=== PATIENT | male | born 1940 | race Caucasian/White ===

== ENCOUNTER → 2018-10-21 13:28 | Outpatient (CLI) | payer MEDICARE, MEDICAID, SELFPAY ==
[2018-10-21 14:51] LABS: Cholesterol 190 mg/dL (140-199)
[2018-10-21 14:53] LABS: Hemoglobin A1C% w Est Avg Glu 5.2 % (4.0-6.0)
[2018-10-21 15:42] LABS: Vitamin B12 417 pg/mL (239-931)
[2018-10-24 19:44] LABS: Vitamin B1 97 nmol/L (78-185)
[2018-10-25 14:48] LABS: Methylmalonic Acid 259 nmol/L (87-318)
== END ==
PROVIDERS: PCP Internal Medicine; Visit Provider Psychiatry & Neurology Neurology
DX: I63.9 Cerebral infarction, unspecified (principal); G30.9 Alzheimer's disease, unspecified; F01.50 Vascular dementia, unspecified severity, without behavioral disturbance, psychotic disturbance, mood disturbance, and anxiety; F02.80 Dementia in other diseases classified elsewhere, unspecified severity, without behavioral disturbance, psychotic disturbance, mood disturbance, and anxiety
CPT/HCPCS: 36415; 82465; 82607; 83036; 83921; 84425

== ENCOUNTER 2019-02-14 20:32 | Observation (INO) | payer MEDICARE, MEDICAID, SELFPAY ==
--- NOTE | 2019-02-14 20:39 | ED_ITS ---
HPI - General Adult General Chief complaint: Neuro Symptoms/Deficit Stated complaint: STROKE Time Seen by Provider: 02/14/19 20:39 Source: patient and family Mode of arrival: ambulatory Limitations: no limitations History of Present Illness HPI narrative: Patient is a 78-year-old male. Arrived by private vehicle for evaluation after prior to arrival he states he was standing on his back porch where he suddenly became dizzy and then fell over. Patient was unable to describe this situation more than feeling dizzy and then falling over. He was able to stand afterwards with some assistance. He was complaining of some left hip pain. Approximately 30 minutes later he was sitting at the table eating when family states that he was slurring his words and had a drooping of the left side of his face. Family is unsure as to exactly how long this event took place. It appears the patient has had multiple TIAs in the past. Family states he has been evaluated by Neurology. He states he has not currently taking any medications. They state they do not remember neurology recommending that he be on any medications. By the time he arrived here in the emergency department his symptoms had resolved. The time my evaluation patient symptom-free of the than left hip pain. Related Data Home Medications Medication Instructions Recorded Confirmed gabapentin 600 mg PO BID 02/14/19 02/14/19 Allergies Allergy/AdvReac Type Severity Reaction Status Date / Time No Known Drug Allergies Allergy Verified 02/14/19 20:42 Review of Systems Constitutional Denies fatigue, Denies fever(s), Reports frequent falls and Denies headache(s) Eyes Denies change in vision, Denies diplopia and Denies loss of vision ENT Ears, Nose, Mouth, and Throat: Reports dizziness and Denies headache(s) Comments: Drooping left side of the face and slurring words Cardiovascular Denies chest pain, Denies palpitations and Denies dyspnea Respiratory Denies cough and Denies dyspnea Gastrointestinal Gastrointestinal: Denies abdominal pain, Denies nausea and Denies vomiting Genitourinary Denies dysuria Musculoskeletal Denies myalgias, Reports arthralgias (Left hip) and Denies tingling Integumentary/Breasts Denies rash Neurologic Denies behavioral changes, Denies confusion, Reports dizziness, Reports frequent falls, Denies headache(s), Denies focal weakness, Denies loss of vision, Denies radicular pain, Denies tingling and Denies paresthesias Psychiatric Denies behavioral changes and Denies confusion Endocrine Denies fatigue and Denies palpitations Hematologic/Lymphatic Denies easy bleeding and Denies easy bruising Allergic/Immunologic Denies urticaria [facility] Medical History Postherpetic neuralgia (Chronic) Malnutrition (Chronic 02/21/16) Social History household members: none Smoking Status: Current every day smoker alcohol intake: never Exam Initial Vital Signs Initial Vital Signs: Vital Signs Temperature 97.9 F 02/14/19 20:42 Pulse Rate 72 02/14/19 20:42 Respiratory Rate 19 02/14/19 20:42 Blood Pressure 161/90 H 02/14/19 20:42 Pulse Oximetry 97 02/14/19 20:42 Const General: cooperative, comfortable, well developed, well groomed and No acute distress Orientation: alert, awake and oriented x3 HENMT Head: normal to inspection, normocephalic and atraumatic Face and sinus: normal facial exam Mouth: oral mucosae normal Eyes Pupils: PERRL EOM: EOM intact bilaterally Neck Neck: normal visual inspection and no meningeal signs Resp Effort & Inspection: normal respiratory effort Auscultation: clear to auscultation bilaterally Cardio Rate: regular rate Rhythm: regular rhythm Pulses: radial pulses present GI Inspection: non-distended Palpation: soft Skin Lesions: no lesions Rashes: no rashes Neuro General: alert, awake and oriented x3 Cranial Nerves: CN's II-XI intact bilaterally Cognition: normal cognition Speech: speech normal Motor: muscle tone normal throughout Sensory Exam: no sensory deficits noted Extrem General: normal to inspection and capillary refill normal Other: Tender to palpation in the left hemipelvis however patient is able to flex and extend at the hip Psych Appearance: grossly normal and well kempt Scores GCS Yue coma scale eye opening: Spontaneous [place] coma scale verbal response: Orientated Yue coma scale motor response: Obey commands [place] coma scale total score: 15 NIH Stroke Scale Level of Conciousness: Alert, keenly responsive Ask month/age: Answers both questions correctly. Open/close eyes, close hand: Performs both tasks correctly Best gaze horizontal: Normal Visual [place]: No visual loss Facial palsy: Normal symetrical movement Left arm drift: No drift for full 10 sec Right arm drift: No drift for full 10 sec Left leg drift: No drift for full 10 sec Right leg drift: No drift for full 10 sec Limb ataxia: Absent Sensory on face/arms/legs: Normal, no sensory loss Best language: No aphasia, normal Dysarthria: Normal Extinction or inattention: No abnormality Total NIH Stroke scale score: 0 Course Orders Ordered: ED Orders 02/14/19 20:40 CT head/brain wo con Stat EKG-12 Lead Stat 02/14/19 20:45 Basic Metabolic Panel Stat Complete Blood Count AUTO DIFF Stat Ethanol (ETOH) Stat Partial Thromboplastin Time Stat Prothrombin Time INR Stat 02/14/19 21:10 XR hip w pel if done LT 2V Stat 02/14/19 23:37 Consult to Physician Routine 02/15/19 00:01 MRSA PCR Routine 02/15/19 06:00 EC echo doppler complete Stat MR stroke Stat Discontinued Medications Aspirin (Aspirin Chew) 324 mg PO NOW ONE Stop: 02/14/19 23:39 Last Admin: 02/14/19 23:58 Dose: 324 mg Vital Signs - 8 hr 02/14/19 20:42 02/14/19 21:33 02/14/19 22:36 Temperature 97.9 F Pulse Rate 72 68 62 Respiratory Rate 19 17 17 Blood Pressure 161/90 H Blood Pressure [Right Arm] 138/78 142/73 H Pulse Oximetry 97 95 94 02/15/19 00:17 Temperature 98.8 F Pulse Rate 74 Respiratory Rate 18 Blood Pressure 162/93 H Blood Pressure [Right Arm] Pulse Oximetry 97 Medical Decision Making Lab Data Lab results reviewed: Yes I reviewed the patient's lab results. Result diagrams: 02/14/19 20:45 02/14/19 20:45 Lab Results 02/14/19 02/14/19 02/14/19 Range/Units 20:45 20:45 20:45 WBC 5.1 (4.5-11.0) X10^3/uL RBC 4.65 (4.5-5.9) X10^6/uL Hgb 14.2 (13.5-17.5) g/dL Hct 41.8 (41-53) % MCV 89.8 (80-100) fL MCH 30.5 (26-34) PG MCHC 34.0 (30-36) % RDW 16.5 H (11.6-14.8) % Plt Count 288 (150-400) X10^3/uL Neut % (Auto) 52.1 (50-75) % Lymph % (Auto) 36.2 (25-40) % [place] % (Auto) 8.3 (3-14) % Eos % (Auto) 1.4 L (2-4) % Baso % (Auto) 2.0 (0-2) % Neut # (Auto) 2600 (3684-9948) /uL Lymph # (Auto) 1800 (4261-0491) /uL [place] # (Auto) 400 (0-900) /uL Eos # (Auto) 100 (0-450) /uL Baso # (Auto) 100 (0-100) /uL PT 9.8 L (10.1-12.7) SECONDS INR 0.9 (0.9-1.3) APTT 32 (26.4-36.2) SECONDS Sodium 137 (137-145) mmol/L Potassium 3.7 (3.4-5.1) mmol/L Chloride 99 (98-107) mmol/L Carbon Dioxide 32 (22-32) mmol/L BUN 13 (9-20) mg/dL Creatinine 1.00 (0.66-1.25) mg/dL Estimated GFR > 60.0 (>60) mL/min BUN/Creatinine Ratio 13.0 (6-22) Glucose 88 (80-110) mg/dL Calcium 9.3 (8.4-10.2) mg/dL Nasal Screen MRSA (PCR) (Negative) Ethyl Alcohol < 10 mg/dL 02/15/19 Range/Units 00:01 WBC (4.5-11.0) X10^3/uL RBC (4.5-5.9) X10^6/uL Hgb (13.5-17.5) g/dL Hct (41-53) % MCV (80-100) fL MCH (26-34) PG MCHC (30-36) % RDW (11.6-14.8) % Plt Count (150-400) X10^3/uL Neut % (Auto) (50-75) % Lymph % (Auto) (25-40) % [place] % (Auto) (3-14) % Eos % (Auto) (2-4) % Baso % (Auto) (0-2) % Neut # (Auto) (8844-1145) /uL Lymph # (Auto) (8569-1686) /uL [place]ergus # (Auto) (0-900) /uL Eos # (Auto) (0-450) /uL Baso # (Auto) (0-100) /uL PT (10.1-12.7) SECONDS INR (0.9-1.3) APTT (26.4-36.2) SECONDS Sodium (137-145) mmol/L Potassium (3.4-5.1) mmol/L Chloride (98-107) mmol/L Carbon Dioxide (22-32) mmol/L BUN (9-20) mg/dL Creatinine (0.66-1.25) mg/dL Estimated GFR (>60) mL/min BUN/Creatinine Ratio (6-22) Glucose (80-110) mg/dL Calcium (8.4-10.2) mg/dL Nasal Screen MRSA (PCR) Negative for mrsa (Negative) Ethyl Alcohol mg/dL Imaging Data CT scan - head: Radiologist's impression: [place] [address] CT Scan Report Signed Patient: Nicanor Mehta WMR#: [id number] : 1940Acct:[id number] Age/Sex: 78 / MDate of Service: 02/14/19 Loc: ED Accession Number: [id number] Procedure: CT head/brain wo con Ordering Provider: Jaspal Sprague D.O. PROCEDURE: CT HEAD/BRAIN WO CON INDICATIONS: Possible TIA TECHNIQUE: Noncontrast 4.5 mm thick angled axial sections acquired from the foramen magnum to the vertex, with coronal and sagittal reformats. For radiation dose reduction, the following was used: automated exposure control, adjustment of mA and/or kV according to patient size. COMPARISON: [facility], CT, HEAD WITHOUT CONTRAST, 11/30/2017, 12:41. FINDINGS: Image quality: Excellent. CSF spaces: Basal cisterns are patent. No extra-axial fluid collections. The ventricles are symmetric in size and shape. Brain: No intracranial bleeds or masses. There is cerebral volume loss for age, with resultant ventricular and sulcal prominence. There are marked periventricular and deep white matter chronic small vessel ischemic changes. Multiple bilateral old lacunar infarctions are identified. There also multiple tiny right cerebellar hemisphere infarcts. There is an old focal small left parieto-occipital infarct. There is intracranial internal carotid artery atherosclerosis. Skull and face: Calvarium and visualized facial bones appear intact, without suspicious lesions. Sinuses: Visualized sinuses and mastoids are clear. IMPRESSION: 1. Age-related volumes, marked small vessel ischemic change, stable bilateral lacunar infarctions, old left cortical infarct. 2. Negative for acute stroke, hemorrhage, or mass. Dictated by: Jose Trevino M.D. on 02/14/2019 at 21:59 Approved by: Jose Trevino M.D. on 02/14/2019 at 22:01 X-ray left hip: Attestation: I personally reviewed and interpreted this imaging study as follows: My impression: No fractures, no dislocations, no acute pathology ECG Data Attestation: I personally reviewed and interpreted this ECG as follows: Prior ECG tracings: not available for review Interpretation: Sinus rhythm Ventricular rate is 69 Normal axis Normal QRS Normal QTC No ST T wave changes MDM Narrative Medical decision making narrative: By the time patient arrived here in the emergency department all his symptoms had resolved. X-ray of his hip shows no fractures. CT scan of his head shows no acute pathology. Patient was given an aspirin here in the ER. Upon further review of the patient's last primary care doctor's note there was specific mention that the patient has not received a full workup for stroke/TIA. I did discuss the case with Dr. Obrien who was on- call for the patient's primary provider. Will admit for a TIA workup. The cardiac echo and MRI was ordered per their request and the results will be followed up by the inpatient provider. Discussed the admission with the patient and the family who expressed understanding and agreement. Care was turned over to admitting provider at time of admission. Discharge Plan Departure Patient Disposition: Admitted as Observation Clinical Impression: TIA (transient ischemic attack) Acute hip pain Qualifiers: Laterality: left Qualified Code(s): M25.552 - Pain in left hip Discharge Date/Time: 02/15/19 00:15 Interventions: ED Discharge Assessment Last Done: 02/15/19 00:00 Admit Date/Time: 02/14/19 23:39 Admit Provider: Grover Obrien
[2019-02-14 20:42] VITALS: BP 161/90; PULSE 72; RESP 19; TEMP 36.6; O2SAT 97
[2019-02-14 20:56] LABS: Add Manual Diff / Slide Review NO; Basophils Absolute Auto 100 /uL (0-100); Eosinophils Absolute Auto 100 /uL (0-450); Eosinophils Percent Auto 1.4 % (2-4); Hematocrit 41.8 % (41-53); Hemoglobin 14.2 g/dL (13.5-17.5); Lymphocytes Absolute Auto 1800 /uL (1100-4500); Lymphocytes Percent Auto 36.2 % (25-40); Mean Corpuscular Hemoglobin 30.5 PG (26-34); Mean Corpuscular Volume 89.8 fL (80-100); Monocytes Absolute Auto 400 /uL (0-900); Monocytes Percent Auto 8.3 % (3-14); Neutrophils Absolute Auto 2600 /uL (1500-7000); Neutrophils Percent Auto 52.1 % (50-75); Platelet Count 288 X10^3/uL (150-400); Red Blood Cell Count 4.65 X10^6/uL (4.5-5.9); Red Cell Distribution Width 16.5 % (11.6-14.8); White Blood Cell Count 5.1 X10^3/uL (4.5-11.0)
[2019-02-14 21:03] LABS: INR 0.9 (0.9-1.3); Prothrombin Time 9.8 SECONDS (10.1-12.7)
[2019-02-14 21:05] LABS: PTT Partial Thromboplastin Tim 32 SECONDS (26.4-36.2)
--- NOTE | 2019-02-14 21:10 | DI.RAD.S_ITS ---
PROCEDURE: XR HIP W PEL IF DONE LT 2V INDICATIONS: left hip pain after fall TECHNIQUE: 2 views of the hip were acquired. COMPARISON: None. FINDINGS: Bones: No displaced fractures or dislocations. No suspicious bony lesions. The visualized pelvic ring appears intact. There may be mild degenerative changes of the hips. Soft tissues: No suspicious soft tissue calcifications or masses. IMPRESSION: No acute osseous abnormality of the left hip. Note: The preliminary ED findings and the final radiology report are concordant. Dictated by: Gen Whiteside M.D. on 02/15/2019 at 6:40 Approved by: Gen Whiteside M.D. on 02/15/2019 at 6:41
[2019-02-14 21:16] LABS: Blood Urea Nitrogen 13 mg/dL (9-20); Calcium 9.3 mg/dL (8.4-10.2); Carbon Dioxide 32 mmol/L (22-32); Chloride 99 mmol/L (98-107); Estimated Glomerular Filt Rate > 60.0 mL/min (>60); Ethanol (ETOH) < 10 mg/dL; Glucose 88 mg/dL (80-110); HEMOLYSIS < 15 (0-50); Potassium 3.7 mmol/L (3.4-5.1); Sodium 137 mmol/L (137-145)
[2019-02-14 21:33] VITALS: BP 138/78; PULSE 68; RESP 17; O2SAT 95
[2019-02-14 22:36] VITALS: BP 142/73; PULSE 62; RESP 17; O2SAT 94
[2019-02-14 23:50] VITALS: BMI 15.0
[2019-02-14] MEDS: ASPIRIN 81 MG TAB 324 MG PO (23:58)
[2019-02-15 00:17] VITALS: BP 162/93; PULSE 74; RESP 18; TEMP 37.1; O2SAT 97
--- NOTE | 2019-02-15 00:34 | PC.ADMIT ---
[email or web address] Admission Note: The patient,Nicanor Mehta,78 y/o, was given written information regarding hospital policies, unit procedures and contact persons. Patient's smoking status: Current every day smoker. Vital Signs - 8 hr 02/14/19 20:42 02/14/19 21:33 02/14/19 22:36 Temperature 97.9 F Pulse Rate 72 68 62 Respiratory Rate 19 17 17 Blood Pressure 161/90 H Blood Pressure [Right Arm] 138/78 142/73 H Pulse Oximetry 97 95 94 02/15/19 00:17 Temperature 98.8 F Pulse Rate 74 Respiratory Rate 18 Blood Pressure 162/93 H Blood Pressure [Right Arm] Pulse Oximetry 97 Pt arrived to room 102 from ER via stretcher in NAD. VSS, afebrile. Pt able to slowly pivot transfer from stretcher to bed. C/O mild left hip pain with ambulation s/p GLF at home [employer]. Denies pain at rest in bed. NIH 0 - without changes. Pt is at baseline neuro per ER staff and family members. A/O, severely [place]. Pt denies hearing aide use. Oriented to plan of care, room and call light. Bed alarm verified active.
[2019-02-15 05:52] VITALS: BP 141/77; PULSE 77; RESP 19; TEMP 37.4
--- NOTE | 2019-02-15 06:00 | DI.ECHO.S_ITS ---
[facility] +---------+ Hospital +---------+ : : [address] : : : [place], [place] : : : : [id number] : : : : Phone: [phone] Echocardiogram Report + + :Name: GRACE ORTEGA Study Date: 02/15/2019 Height: 67 in : :[facility] Weight: 104 lb : : Gender: Male BSA: 1.5 m2 : :: 1940 Age: 78 yrs BP: 156/90 mmHg: :Reason For Study: tia : :Ordering Physician: Chaparro : :Hospitalist Performed By: Sher Nam : :Referring: LISET VIEIRA : + + Interpretation Summary Techincally challenging study as no parasternal and apical windows available. 1) Grossly, normal left ventricular size, wall motion, and systolic function (EF 60-65%). 2) Grossly, normal right ventricular size and functoin. 3 No significant valvular abnormalities. 4) No prior Echo available for comparison. Procedure: A two-dimensional transthoracic echocardiogram with color flow and Doppler was performed. The study quality was technically limited. Images were obtained from subcostal window. There were no parasternal or apical windows available. The patient was in normal sinus rhythm during the exam. Left Ventricle: The left ventricle is grossly normal size. There is normal left ventricular wall thickness. The ejection fraction is estimated to be 60- 65%. There are no obvious focal wall motion abnormalities noted but poor endocardial definition reduces the sensitivity for the detection of such. Right Ventricle: The right ventricle grossly appears normal in size with probable normal systolic function. Atria: The left atrium grossly appears normal in size. The right atrium grossly appears normal in size. Mitral Valve: The mitral valve leaflets appear mildly thickened, but open well. There is trace mitral regurgitation. Aortic Valve: The aortic valve is normal in structure and function. There is trace aortic regurgitation. Tricuspid Valve: The tricuspid valve is not well visualized, but is grossly normal. Doppler findings do not suggest pulmonary hypertension. Pulmonic Valve: The pulmonic valve leaflets are thin and pliable; valve motion is normal. There is a trace or physiologic amount of pulmonic regurgitation. Great Vessels: The aortic root is normal size. The ascending aorta could not be visualized. The pulmonary artery is normal size. The IVC is of normal diameter and collapses greater than 50% with a sniff. This suggests a low right atrial pressure of 3 mm Hg. Pericardium/ Pleura There is no pericardial effusion. There is no pleural effusion. Doppler Measurements & Calculations Ao V2 max: 89.7 cm/sec LVOT Max Wagner: 68.3 cm/sec Ao V2 mean: 55.6 cm/sec LV V1 max P.9 mmHg Ao max P.2 mmHg LV V1 VTI: 14.6 cm Ao mean P.4 mmHg sev ratio: 0.91 Ao V2 VTI: 16.0 cm MV E max wagner: 55.4 cm/sec TR max wagner: 185.4 cm/sec MV A max wagner: 56.4 cm/sec TR max P.7 mmHg MV E/A: 0.98 PA V2 max: 78.9 cm/sec Med Peak E' Wagner: 2.7 cm/sec PA V2 mean: 57.1 cm/sec E/E' med: 20.2 PA mean P.4 mmHg Lat Peak E' Wagner: 4.5 cm/sec PA pr(Accel): 41.6 mmHg E/E' lat: 12.2 E/e' average: 16.2 MV dec time: 0.19 sec Reading Physician:12:29 PM
--- NOTE | 2019-02-15 06:00 | DI.MRI.S_ITS ---
PROCEDURE: MR STROKE Pre- and post-contrast brain MRI, non-contrast brain MR angiogram, pre- and postcontrast neck MR angiogram INDICATIONS: TIA TECHNIQUE: Brain: Noncontrast axial T1 spin echo, axial T2 fast spin echo, sagittal and axial FLAIR, coronal T2 fast spin echo, axial gradient echo, axial diffusion and ADC through the brain. After the administration of contrast, axial 3D VIBE of the cranial vasculature and brain. Brain MRA: Non-contrast 3-D time of flight MR angiogram, with multiple xegrbra-kdcihllkh-xjlxxlmjpa (MIP) reformats performed. Neck MRA: Axial and sagittal TruFISP through the neck. Coronal dynamic MR angiogram during administration of contrast in the arterial and venous phases, with 3-dimenstional ljwecxc-tpqgvldzn-gybhcfibce (MIP) reformats constructed from subtraction images. COMPARISON: [facility], CT, CT HEAD/BRAIN WO CON, 02/14/2019, 21:35. FINDINGS: Image quality: Diagnostic BRAIN: CSF spaces: Ventricles are prominent in size with corresponding parenchymal volume loss. Basal cisterns are patent. No extra-axial fluid collections. Brain: No intracranial bleeds or mass effects. Fung-white matter interface is normal. Diffusion weighted images show no acute ischemic insults. Large confluent areas of increased flair signal are seen within the supratentorial brain deep white matter. There is an area of increased diffusion signal identified involving the deep white matter of the right frontal lobe (image 65, series 20), which demonstrates increased signal intensity on the ADC images. A similar foci of increased diffusion signal is noted involving the left cerebellum (image 56, series 20) with corresponding decreased signal intensity on the ADC images. Encephalomalacia involving the left occipital lobe is noted. Brainstem appears normal. Normal intravascular flow voids are present. No abnormal intracranial enhancement. Skull and face: Calvarial marrow signal is normal. Orbits appear normal. Sinuses: Sinuses and mastoids are clear. BRAIN MR ANGIOGRAM: Anterior circulation: Intracranial internal carotid arteries are normal in size and enhancement. The flow within the paired anterior cerebral arteries is normal and symmetric. The flow within the middle cerebral arteries is normal and symmetric. The anterior communicating artery is seen. No stenoses, occlusions, or aneurysms. Posterior circulation: The visualized portions of the vertebral arteries demonstrate normal caliber, and join to form a normal appearing basilar artery. The flow within the posterior cerebral arteries is normal and symmetric. No stenoses, occlusions, or aneurysms. NECK MR ANGIOGRAM: Carotids: Great vessels demonstrate a conventional anatomy as they arise from the aortic arch. The origins of the common carotid arteries appear patent. The calibers and courses of both common carotid arteries are normal. The bifurcation regions appear normal bilaterally. The internal carotid arteries demonstrate normal course and caliber. Posterior circulation: The origins of the vertebral arteries appear patent. More superior portions of both vertebral arteries demonstrate normal course and caliber, and join to form a normal appearing basilar artery. Miscellaneous: Subclavian arteries appear patent. Pre-contrast images through the neck show no soft tissue abnormalities. Mild to moderate degenerative changes of the lower cervical spine may be resulting in areas of central canal and neural foraminal narrowing, not adequately evaluated on this study. IMPRESSION: BRAIN MRI: 1. Small foci of acute ischemia involving the right frontal lobe deep white matter and left cerebellum. 2. Extensive chronic small vessel ischemic changes and parenchymal volume loss. 3. Left occipital lobe encephalomalacia. BRAIN MR ANGIOGRAM: The intracranial vessels are widely patent without high-grade narrowing, occlusion, aneurysm, or vascular malformation. NECK MR ANGIOGRAM: 1. Unremarkable cervical carotid arteries. No significant atherosclerotic changes. No aneurysm, occlusion, or high-grade narrowing. 2. Unremarkable vertebral arteries. No occlusions or high-grade narrowing. Dictated by: Gen Whiteside M.D. on 02/15/2019 at 10:34 Approved by: Gen Whiteside M.D. on 02/15/2019 at 10:43
[2019-02-15 08:00] VITALS: BP 156/90; PULSE 69; RESP 18; TEMP 37; O2SAT 94
--- NOTE | 2019-02-15 09:30 | PM.HP.1 ---
History of Present Illness Date Patient Seen: 02/15/19 Time Patient Seen: 09:30 Chief complaint: STROKE Narrative: TIA. Patient admitted last night through the emergency room for overnight observation for possible TIA. History primary from the emergency room doctor, ICU nursing staff, minimally from the patient. Reportedly patient had an event last evening standing on his deck became lightheaded and fell landing on his left hip banged his head got up went and sat in his easy chair. [place] much better. He does not recall any of this as far as I can tell other than he recalls falling. Reported later on family really felt he had slurring of his speech and drooping of the left side of his face. Because of these findings they brought him to the emergency room for evaluation. Apparently patient has history of prior events that have been called ?TIAs? also has had a significant deterioration of his memory. Has been seen by a neurologist who felt he had early-onset dementia multifactorial perhaps having had a stroke in the past based on abnormalities on MRI in the occiput. Last seen by Dr. Fisher in October comments made by Dr. Fisher as well as neurologist that patient seemed to be noncompliant with treatment for potential and that further workup may not be necessary. Patient is admitted here overnight to proceed with initial workup with echocardiogram and MRI MRA. Anticipating being discharged on aspirin later this evening. Patient currently lives in [place] with son. He is very upset with sudden his family 8 do not seem to pain any tension and apparently do not take him seriously. He is plan going home because he has a CT there that takes care of. Patient History Medical History Postherpetic neuralgia (Chronic) Malnutrition (Chronic 02/21/16) Social History household members: none Smoking Status: Current every day smoker alcohol intake: never Family & Social History Social History: household members none Prior Living Arrangements House Safety & Behavioral: Feels Safe in Current Yes Environment Been Physically Hurt or No Threatened By a Person Suicidal Ideation Description None Tobacco & Substance use: Tobacco type cigarettes Smoking Status Current every day smoker Smoking packs per day 1 alcohol intake never alcohol intake frequency other Substance Use Type does not use Meds Home Medications Medication Instructions Recorded Confirmed Type gabapentin 600 mg PO BID 02/14/19 02/14/19 History Allergies Allergy/AdvReac Type Severity Reaction Status Date / Time No Known Drug Allergies Allergy Verified 02/14/19 20:42 Review of Systems Review of Systems unobtainable due to mental status Exam Vital Signs (past 8 hours): - 02/15/19 05:52 02/15/19 08:00 Temperature 99.3 F 98.6 F Pulse Rate 77 69 Respiratory Rate 19 18 Blood Pressure 141/77 H 156/90 H Pulse Oximetry 94 Oxygen Delivery Method Room Air Oxygen Flow Rate 0 Narrative Exam Narrative: Patient is examined in his ICU room. He is sitting up in his chair getting prepared for shower. He answers questions but is incredibly hard of hearing takes fair amount of repeating at the questions for him to answer. He appears in no distress. Eye exam finds perhaps slight internal deviation of the left pupil but does have normal cranial nerve exam. Oropharynx shows [place] patient is a long jose and long hair. Lungs are entirely clear. Cardiac exam regular rhythm no murmur gallop Carotids 1+ no bruits Abdominal exam benign no hepatosplenomegaly no masses no tenderness. Genital rectal exam not performed. Extremities show him to very have thin cachectic legs with redness of the skin feet are warm. He has tenderness of the left hip area out laterally with a burst is. Hip otherwise has full range of motion His neurologic exam as stated cranial nerves 2-12 appear to be intact his finger-nose exam can be done but he does very poorly. Mental status exam a he is unaware today's date unaware that this is [facility]. 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 His neuro exam otherwise he seems to have symmetric strength of the upper lower extremities unclear about testing for sensation because of poor hearing the really does not understand the question Objective Labs Result Diagrams: 02/14/19 20:45 02/14/19 20:45 Labs: Laboratory Results - last 24 hr 02/14/19 02/14/19 02/14/19 20:45 20:45 20:45 WBC 5.1 RBC 4.65 Hgb 14.2 Hct 41.8 MCV 89.8 MCH 30.5 MCHC 34.0 RDW 16.5 H Plt Count 288 Neut % (Auto) 52.1 Lymph % (Auto) 36.2 [place] % (Auto) 8.3 Eos % (Auto) 1.4 L Baso % (Auto) 2.0 Neut # (Auto) 2600 Lymph # (Auto) 1800 [place] # (Auto) 400 Eos # (Auto) 100 Baso # (Auto) 100 PT 9.8 L INR 0.9 APTT 32 Sodium 137 Potassium 3.7 Chloride 99 Carbon Dioxide 32 BUN 13 Creatinine 1.00 Estimated GFR > 60.0 BUN/Creatinine Ratio 13.0 Glucose 88 Calcium 9.3 Nasal Screen MRSA (PCR) Ethyl Alcohol < 10 02/15/19 00:01 WBC RBC Hgb Hct MCV MCH MCHC RDW Plt Count Neut % (Auto) Lymph % (Auto) [place] % (Auto) Eos % (Auto) Baso % (Auto) Neut # (Auto) Lymph # (Auto) [place] # (Auto) Eos # (Auto) Baso # (Auto) PT INR APTT Sodium Potassium Chloride Carbon Dioxide BUN Creatinine Estimated GFR BUN/Creatinine Ratio Glucose Calcium Nasal Screen MRSA (PCR) Negative for mrsa Ethyl Alcohol labs reviewed from ER. CT of the head showed typical aging changes with no he hematoma or hemorrhage Assessment & Plan Assessment & Plan narrative: 1. Patient's primary problem appears to be his memory impairment this is chronic and is unclear whether not progressing or not. Memory impairment seem to be secondary to other issues are not to cerebrovascular disease although certainly is a consideration. 2. Reportedly the patient had an event yesterday that may well have been another 1 of his neurologic events. 3. No evidence for head injury. 4. Apparently compliance has been a major challenge in the past and will continue to be so I presume. 5. Nursing reports of foul-smelling urine urinalysis to be collected. Patient will have echocardiogram and MRI MRI today if possible and be discharged this evening on aspirin 325 once a day if possible. Patient is labeled as a full code but I do not know the details of whether not that is accurate or not Quality VTE Deep Vein Thrombosis/Pulmonary Embolism Present on Admission: No
--- NOTE | 2019-02-15 10:07 | PC.NURSE ---
Addendum entered by Jesus Ramey R.N. 02/15/19 11:29: Pt back to room about 1055. CGA back to bed from w/c and positioned for comfort. Notified education technician that pt is back to room. Original Note: Pt to MRI with tech via w/c in no acute distress.
[2019-02-15] MEDS: SODIUM CHLORIDE 0.9% 1,000 ML 100 ML IV (11:28)
[2019-02-15 11:38] VITALS: BP 163/85; PULSE 56; RESP 18; TEMP 36.7; O2SAT 99
[2019-02-15 11:58] LABS: Bacteria Urine None Seen
[2019-02-15 11:59] LABS: Appearance Urine UA CLEAR; Bilirubin Urine UA NEGATIVE (NEGATIVE); Color Urine UA YELLOW; Glucose Urine UA NEGATIVE (Negative); Ketones Urine UA NEGATIVE (NEGATIVE); Leukocyte Esterase Urine UA NEGATIVE (NEGATIVE); Nitrite Urine UA NEGATIVE (Negative); Occult Blood Urine UA TRACE-LYSED (Negative); Protein Urine UA NEGATIVE (Negative)
[2019-02-15 12:19] LABS: Culture Indicated Urine Cult Not Indicated; RBC Urine 1-5/HPF (0-5/HPF); WBC Urine 1-5/HPF (0-5/HPF)
--- NOTE | 2019-02-15 12:42 | OT.IP.EVAL ---
Past Medical History (Last Reviewed 02/15/19 @ 09:33 by Grover Obrien MD) Postherpetic neuralgia (Chronic) Malnutrition (Chronic 02/21/16) Occupational Therapy Inpatient Evaluation/Re-Eval M1 PT/OT-IP Prior Functional Status Start: 02/15/19 12:15 Freq: NEEDED Status: Active Protocol: Document 02/15/19 12:16 CGR (Rec: 02/15/19 12:41 CGR [id number]) Medical Review Prior Functional Status Communication Able to communicate with difficulty d/t [place]. R ear is better than L. Mobility and Gait Pt currently ambulating with CGA and no AD. Activities of Daily Living and IADL's Pt states he performed without assist at his baseline. Social History Household Members family Living Arrangements House Number of Floors (Floors) One Floor Number of Stairs To Enter/Railing? 5 with rail on R accending. Home Environment Standard Height Toilet Walk in Shower Employment Status Retired Additional Social History Comment Per pt, [place] Pt states he lives with his son in law and the son in law's girlfriend. States he daughter moved back east. M2 OT-IP Current Condition Start: 02/15/19 12:15 Freq: Status: Active Protocol: Document 02/15/19 12:16 CGR (Rec: 02/15/19 12:41 CGR [id number]) Occupational Therapy Current Condition Current Condition Evaluation Date 02/15/19 Treatment Diagnosis TIA M3 OT- IP Subjective and Pain Start: 02/15/19 12:15 Freq: Status: Active Protocol: Document 02/15/19 12:16 CGR (Rec: 02/15/19 12:41 CGR [id number]) OT- Subjective Occupational Therapy Visit Type Type Initial Evaluation Visit Start Time 11:01 Visit Stop Time 11:15 Total Visit Minutes 14 Notes Eval shortened d/t pollution control technician arrived during eval. Occupational Therapy Visit Comments Patient Comments Pt indicated that he knew this blog writer upon entering room. Its been a long times since I have seen you. OT Pain Assessment Pain When Pain Assessed At Rest Pain Present Pain Present Pain Reported Location Lower Back Intensity 8 Scale Used Numeric (1 - 10) Management Techniques Distraction Modification of Treatment M4 OT- IP ADL's Start: 02/15/19 12:15 Freq: Status: Active Protocol: Document 02/15/19 12:16 CGR (Rec: 02/15/19 12:41 CGR [id number]) OT [id number] Comments OT Self-Feeding Comments Not performed at Eval OT ADL-Grooming General Evaluation Grooming Ability Standby Assistance Areas Needing Assistance Face Washing OT ADL-Oral Care Comments Oral Care Comments Not performed d/t limited time OT ADL-Dressing Comments OT Dressing Comments Not performed d/t limited time OT ADL-Toileting Comments OT Toileting Comments Not performed d/t limited time OT ADL-Bathing Comments OT Bathing Comments Just performed with tech. Pt stood in shower with SBA and needed VC for thoroughness. Pt washed upper body and tech washed lower body and back. Pt declined to wash jose. All information obtained from tech . OT not present for shower. M5 OT- IP IADL's Start: 02/15/19 12:15 Freq: Status: Active Protocol: Document 02/15/19 12:16 CGR (Rec: 02/15/19 12:41 CGR [id number]) OT-Instrumental Activities of Daily Living Deficits IADL Deficits Identified Deficits Home Safety Awareness Awareness of Need for Assistance at Home Decreased Awareness Ability to Problem Solve Emergency Unable to Problem Solve Situations Medication Management Medication Management Comments Concern for pt to provide medication management for himself. Family not present to answer questions. Money Management Money Management Comments Concern for pt to provide money management for himself. FAmily not presetn to answer questions. Driving Driving Comments Pt states he does not drive. M6 OT- IP Functional Cognition Start: 02/15/19 12:15 Freq: Status: Active Protocol: Document 02/15/19 12:16 CGR (Rec: 02/15/19 12:41 CGR [id number]) Cognitive Factors Limiting Selfcare Function Cognitive Ability Level of Alertness Alert Patient Orientation Name Attention Span Ability Capable of Focused Attention Capable of Sustained Attention Ability to Follow Commands Able to Follow One Step Commands Able to Follow One Step Commands with Repetition Memory Description Immediate Impaired Short Term Impaired Geriatric Nurse Impaired Safety Awareness Underestimates Need for Assistance Problem Solving Ability Unable to Identify Errors Needs Assist to Identify Solutions Executive Function Ability Unable to Filter Distractions Unable to Organize Plans Unable to Remember Details Unable to Integrate Past Experience With Present Action Cognitive Comments Cognitive Assessment Comments Would benefit from formal testing. OT- Vision and Hearing OT- Hearing Assessment OT- Hearing Assessment Hearing Impaired OT- Vision Assessment Visual Acuity WFL Visual Attentiveness WFL Occular Pursuits WFL Visual Convergence WFL Vision Assessment Comments Pt states his vision is poor but is able to follow finger, read badge and identify objects at a distance. M7 OT- IP Mobility and Balance Start: 02/15/19 12:15 Freq: Status: Active Protocol: Document 02/15/19 12:16 CGR (Rec: 02/15/19 12:41 CGR [id number]) OT-Transfer Assessment Sit to and From Stand Sit to and from Stand Contact Guard Assistance Transfers Transfer Ability Contact Guard Assistance Technique Transfer Destination Bed OT- Gait Assessment Gait Gait Assistance Required: Contact Guard Assist Assistive Devices Assistive Device None Comments Gait Ability Comments Seen ambulating in [place] with director of nursing going to the shower. OT- Balance Assessment Sitting Balance and Reactions Static Sitting Balance Ability Normal Dynamic Sitting Balance Ability Normal Comments Other Balance Tests/Deviations/Treatment Seated EOB, no sitting balance : difficulty M8 OT- IP Objective Assessments Start: 02/15/19 12:15 Freq: Status: Active Protocol: Document 02/15/19 12:16 CGR (Rec: 02/15/19 12:41 CGR [id number]) OT Gross Range of Motion Upper Extremity Range of Motion Assessment Within Functional Limits OT Strength Upper Extremity Strength Assessment Within Functional Limits Comments Strength Comments grossly 5/5 throughout OT- Coordination Assessment Upper Extremity Finger to Nose Test Within Functional Limits Finger Tapping Test Within Functional Limits OT Sensation Assessment Comments Summary Comments Pt states BUE and neck tingly with touch. Edema Edema Absent M9 OT- IP Assessment and Plan Start: 02/15/19 12:15 Freq: Status: Active Protocol: Document 02/15/19 12:16 CGR (Rec: 02/15/19 12:41 CGR [id number]) OT Summary Assessment and Plan Potential Rehabilitation Potential Fair Analytic Complexity at Evaluation Moderate Summary OT Impairments Pain Balance Functional Cognition Functional Mobility Self-Feeding Grooming Dressing Toileting Bathing Toilet Transfers Shower Transfers Assessment Summary Pt presents with deficits to his cognition and mobility. Unable to assess full home situation as family is not present and pt was unable to state his location, date, year , president, etc. Pt is very [place] but answers questions when asked loudly to his R ear. Pt will benefit from continued OT services. At this time will recommend d/c to SNF as unsure of home situation and family's ability to assist pt upon discharge. Goals Self-Feeding Goal Independent Grooming Goal Independent Dressing Goal Independent Toileting Goal Independent Bathing Goal Independent Toilet Transfer Goal Independent Shower Transfer Goal Independent Days to Meet Goals 10 Frequency of Treatment Frequency Of Treatment Once a Day Treatment Plan OT Treatment Plan ADL Training Functional Cognition Training Functional Mobility Patient/Family Education Discharge Planning Other Treatment Recommendations and Next Pt would benefit from formal Treatment Focus cognition testing. Need baseline information from family for educated discharge plan. Discharge Recommendations OT Discharge Recommendations SNF Rehab Other Discharge Recommendations Recommending d/c to SNF at this time as family was not available to provide information on ability to assist pt at home. Unsure if current cog deficits are his baseline for new. Home Equipment Needs TBD
--- NOTE | 2019-02-15 12:45 | PT.IIE ---
Medical History (Last Reviewed 02/15/19 @ 09:33 by Grover Obrien MD) Postherpetic neuralgia (Chronic) Malnutrition (Chronic 02/21/16) Physical Therapy Inpatient Evaluation/Re-Eval M1 PT/OT-IP Prior Functional Status Start: 02/15/19 12:15 Freq: NEEDED Status: Active Protocol: Document 02/15/19 12:45 RCC (Rec: 02/15/19 13:41 [facility] [id number]) Medical Review Prior Functional Status Communication Able to communicate with difficulty d/t [place]. R ear is better than L. Mobility and Gait Pt currently ambulating with CGA and no AD. prior level of indep. gait without device on uneven terrain Activities of Daily Living and IADL's Pt states he performed without assist at his baseline. Social History Household Members family Living Arrangements House Number of Floors (Floors) One Floor Number of Stairs To Enter/Railing? 5 with rail on R ascending. Home Environment Standard Height Toilet Walk in Shower Employment Status Retired Additional Social History Comment Pt lives on [facility]. Son -in-law reports that pt has had multiple TIAs previously, pt fell to the ground and developed facial droop. Head CT and Hip radiograph initially were negative for acute findings. MRI of the brain showed Small foci of acute ischemia involving the right frontal lobe deep white matter and left cerebellum. Pt's son-in-law notes that pt walks outside without assistance, mowed the lawn about 2 weeks ago. M2 PT-IP Current Condition Start: 02/15/19 13:30 Freq: NEEDED Status: Active Protocol: Document 02/15/19 12:45 RCC (Rec: 02/15/19 13:41 [facility] [id number]) Physical Therapy Current Condition Current Condition Evaluation Date 02/15/19 Treatment Diagnosis CVA, impaired activity tolerance M3 PT-IP Subjective Start: 02/15/19 13:30 Freq: NEEDED Status: Active Protocol: Document 02/15/19 12:45 RCC (Rec: 02/15/19 13:41 [facility] [id number]) Subjective Physical Therapy Visit Type Type Initial Evaluation Visit Start Time 12:45 Visit Stop Time 13:20 Total Visit Minutes 35 Number of COMPARATOR OPERATOR Visits 0 Physical Therapy Visit Comments Patient Comments pt states that he wants to go home Patient Goals to go home M4 PT-IP Mobility and Gait Start: 02/15/19 13:30 Freq: NEEDED Status: Active Protocol: Document 02/15/19 12:45 RCC (Rec: 02/15/19 13:41 [facility] [id number]) PT-Bed Mobility Assessment Rolling Level of Assist Independent Supine to Sit Supine to Sit Independent Scooting Scooting to Edge of Bed Independent PT-Transfer Assessment Sit to and From Stand Sit to and from Stand Standby Assistance Equipment Transfer Assistive Device Gait Belt Transfers Transfer Destination Bed Chair Transfer Technique Stand Step Pivot Transfer Ability Level of Assist Standby Assistance Gait Assessment Gait Gait Assistance Required: Standby Assistance Distance (Feet) 60 Assistive Devices Assistive Device Gait Belt Gait Deviations General Gait Pattern Decreased Stride Length Decreased Feet Clearance Festinating Flexed Trunk Narrow Based Gait Step-to Gait Factors Limiting Gait Function Factors Limiting Gait Function Decreased Activity Tolerance Decreased Strength Difficulty Following Directions Poor Balance Poor Safety Awareness Comments Gait Comments pt ambulated 60 ft, c/o fatigue- HR and O2 saturation WNL during gait. Seated rest x3 min, then gait x30 ft back to room with CGA PT-Balance Assessment Sitting Balance and Reactions Static Sitting Balance Ability Good Dynamic Sitting Balance Ability Good Standing Balance and Reactions Static Standing Balance Ability Fair Dynamic Standing Balance Ability Poor Device Used none M5 PT-IP Objective Assessments Start: 02/15/19 13:30 Freq: NEEDED Status: Active Protocol: Document 02/15/19 12:45 RCC (Rec: 02/15/19 13:41 [facility] [id number]) Orientation Orientation/Cognition Orientation Name Place Situation Gross Range of Motion Lower Extremity ROM Assessment Within Functional Limits Strength Lower Extremity Strength Assessment Bilaterally Impaired Hip flexion 3+/5 B Knee flexion and extension 3+/5 B Ankle DF 5/5, PF 3/5 B Coordination Assessment Assessment Foot Tapping Test Normal Performance Sensation Assessment Sensation Gross Sensation WNL Muscle Tone Muscle Tone WNL Yes M6 PT-IP Treatment Start: 02/15/19 13:30 Freq: NEEDED Status: Active Protocol: Document 02/15/19 12:45 RCC (Rec: 02/15/19 13:41 [facility] [id number]) Physical Therapy Treatment Education Education Provided Safety M7 PT-IP Assessment and Plan Start: 02/15/19 13:30 Freq: NEEDED Status: Active Protocol: Document 02/15/19 12:45 RCC (Rec: 02/15/19 13:41 [facility] [id number]) PT Summary Assessment and Plan Potential Rehabilitation Potential Good Status of Condition at Evaluation Evolving Summary Impairments Strength Balance Transfers Gait Activity Tolerance Assessment Summary Pt able to ambulate 60 ft without an assistive device and CGA, but did require a seated rest break due to fatigue. Pt with shaking throughout session, with son- in-law reporting that this is new with this hospitalization. Pt overall is at high risk for falls, but son-in-law reports pt appears to be at his prior level of function, and they are able to provide assistance during the day as necessary. Pt with bilateral LE weakness, but no significant differences R vs L . Expect pt to be able to return home when medically cleared. Pt would be a strong candidate for physical and occupational therapy, but family unsure of how open to this the pt would be. Goals Bed Mobility Goal Independent Transfer Goal Independent Gait Goal Independent Gait Distance 150 Other Goals up/down 5 steps R ascending rail and CGA STG: up/down 3 steps with Min A and unilat. rail in 2 days STG: gait x100 ft with SBA in 2 days Days to Meet Goals 5 Frequency of Treatment Frequency Of Treatment Twice a Day Treatment Plan Physical Therapy Treatment Plan Bed Mobility Training Transfer Training Gait Training Therapeutic Exercise Balance Retraining Discharge Planning Neuromuscular Re-ed Other Recommendations and Next Treatment progress gait, stair training Focus Recommendations To Nursing Amount of Assist Needed 1 Person Assist Discharge Recommendations PT Discharge Recommendations Home with Assistance Home Health
--- NOTE | 2019-02-15 13:32 | CM.DANOTE ---
DCP/Assessment: Reviewed chart. Patient is a 78yr old male admitted under OBS status with stroke like symptoms. PCP is Dr. Fisher. Primary payor is 1)Medicare 2)Medicaid. Met with patient and DPOA/Cole and his spouse/Brenda at bedside explained CM/SW role. Cole reports that patient very [place]. Patient resides on [address] [facility] [address] with family. Cole reports that he is legal DPOA. Patient shakes his head in agreement when asked. Per Cole, patient lives with him and spouse/Brenda on [address] [facility] [address]. Prior to admit patient used no DME. Patient moves around I at residence but no longer drives. Patient is an active smoker. Cole reports that himself and spouse like to travel. They are concerned about leaving patient alone. Cole recently started to look into long-term options. Patient seen by therapy today. Per PT/Joseph patient gotten out of bed this afternoon. PT spoke with family and they concur that patient is primarily back to his mobility baseline. Cole provided with community resources for [employer] (including application). Cole reports that he will fill it out and turn in next week. In addition, Cole given private pay child care supervisor resources, community resource book, and checklist for applying for [employer]. Cole appreciative. Family reports that they will be with patient at home upon d/c. Spoke with RN/Jesus whom reports that patient might possibly d/c today. Family in agreement. No additional needs identified. Cole denies need for home health. P: Home when medically stable. Community resources provided. MARAH Brown Discharge Planning/Care Management CM Discharge Assessment Start: 02/15/19 12:45 Freq: Status: Active Protocol: Document 02/15/19 13:28 KJS (Rec: 02/15/19 13:32 JUAN [id number]) Discharge Planning Assessment Assigned [place] MARAH Brown Contact Information Cole Benjamin (JARED) Advance Directives? No History Provided By Patient Family Member Medical Record Has Patient been admitted in last 30 No days? Prior Living Arrangements House Household Members family Type of transporation used prior to Relies on Others admit Independent with ADL's Yes Is patient alert and oriented? Yes Caregiver for Another No Comment No DME used/needed at this time. Barriers to Discharge No Discharge Plan Home Transportation Arrangement Family to provide transport. Referrals Initiated Medicaid Application Other Additional Comment Resources for cargiving and [employer] application. Also given Senior Resource Guide. Whiteboard Updated in Patient Room with Yes name and ext. # of [place] Review Status In Process Next Review Type Continued Stay Review
--- NOTE | 2019-02-15 13:36 | PC.NURSE ---
Pt has remained awake, alert, and somewhat oriented. Mr. Mehta is severely [place] bilaterally and it is difficult at times to ascertain whether he hears/understands the questions that are being asked of him. He states his name, birthday, and acknowledges he's at the hospital (states location as [place]). He is unsure of date/time/season. He tells this RN he has had strokes in the past. He is moving all of his extremities with equal strength; however is weak requiring CGA for transfers and ambulation. He reports mild pain to his left hip which he states makes his left leg difficult to move. There is no drift to any of his extremities on assessment. He is following commands and denies visual changes. He is unsteady at times while walking but denies dizziness/lightheadedness. Mild HTN is noted and HR ranges 56-70s SB/SR with a 1st degree AVB. His lungs are CTAB and he is on RA with SPO2 98-100%. He denies shortness of breath. He is tolerating a general diet and swallowing without any apparent difficulty. MR and echo are completed. Family is at bedside and states pt is back to baseline regarding his mentation and walking ability, possibly a little weaker. They are interested in receiving information about home caregivers. PLACEMENT MANAGER at bedside discussing options.
--- NOTE | 2019-02-15 16:25 | PC.NURSE ---
1615- Patient discharged to home. Discharge instruction given to Cole patients guardian. Patient IV removed and patient assisted with dressing and transfer to wheelchair. Patient stable at the time of discharge to home.
--- NOTE | 2019-02-16 07:59 | P.DS_ITS ---
History of Present Illness Chief complaint: STROKE Narrative: TIA. Patient admitted last night through the emergency room for overnight observation for possible TIA. History primary from the emergency room doctor, ICU nursing staff, minimally from the patient. Reportedly patient had an event last evening standing on his deck became li ghtheaded and fell landing on his left hip banged his head got up went and sat in his easy chair. [place] much better. He does not recall any of this as far as I can tell other than he recalls falling. Reported later on family really felt he had slurring of his speech and drooping of the left side of his face. Because of these findings they brought him to the emergency room for evaluation. Apparently patient has history of prior events that have been called ?TIAs? also has had a significant deterioration of his memory. Has been seen by a neurologist who felt he had early-onset dementia multifactorial perhaps having had a stroke in the past based on abnormalities on MRI in the occiput. Last seen by Dr. Fisher in October comments made by Dr. Fisher as well as neurologist that patient seemed to be noncompliant with treatment for potential and that further workup may not be necessary. Patient is admitted here overnight to proceed with initial workup with echocardiogram and MRI MRA. Anticipating being discharged on aspirin later this evening. Patient currently lives in [place] with son. He is very upset with sudden his family 8 do not seem to pain any tension and apparently do not take him seriously. He is plan going home because he has a CT there that takes care of. Discharge Providers Date of admission: 02/14/19 23:39 Discharge Date: 02/15/19 Primary care physician: David Fisher MD Consults: 02/14/19 23:37 Consult to Physician Routine Comment: Consulting Provider: Grover Obrien Reason for consultation: admission Has provider been notified: Yes 02/15/19 09:49 Consult to Physical Therapy Evaluate & Treat Comment: Physician Instructions: Evaluate and Treat Discharge provider: Grover Obrien MD Summary Discharge Diagnosis: 1. TIA. 2. Questionable new evidence of ischemia right frontal lobe as per MRI. 3. Significant pre-existing memory impairment. 4. Normal echocardiogram Exam Vital Signs (past 8 hours): Oxygen Delivery Method Room Air Oxygen Flow Rate 0 Narrative Exam Narrative: Patient exam was unchanged. His typical disheveled [place] self. His neuro exam was unchanged and was unremarkable and normal Objective Labs Result Diagrams: 02/14/19 20:45 02/14/19 20:45 Labs: Laboratory Results - last 24 hr 02/15/19 11:30 Urine Color Yellow Urine Appearance Clear Urine pH 7.0 Ur Specific [place] 1.020 Urine Protein Negative Urine Glucose (UA) Negative Urine Ketones Negative Urine Occult Blood Trace-lysed Urine Nitrate Negative Urine Bilirubin Negative Urine Urobilinogen 1.0 Ur Leukocyte Esterase Negative Urine RBC 1-5/hpf Urine WBC 1-5/hpf Urine Bacteria None seen Ur Culture Indicated? Cult not indicated Discharge Plan Discharge Plan Patient Disposition: Home Discharge Med Rec/Prescriptions Prescriptions: Discontinued gabapentin 300 mg Capsule 600 mg PO BID RF: 0 Follow up/Referrals: David Fisher MD [Primary Care Provider] - Provider Discharge Instructions Diet: Diet as Tolerated Visit Report/Discharge Packet Visit Report Forms: Stroke Signs & Symptoms Discharge Data Primary Care Provider: David Fisher Attending Provider: David Fisher Admit Date/Time: 02/14/19 23:39 Discharges patient from system. Discharge Date/Time: 02/15/19 16:26 Quality VTE Deep Vein Thrombosis/Pulmonary Embolism Present on Admission: No
--- NOTE | 2019-02-19 09:28 | PC.NURSE ---
Stop time for Sodium Chloride 0.9% 02/15/19 [id number]
== END 2019-02-15 16:26 | disposition home or self-care (01) ==
LOC: ED 23:35 → AC 23:42 → ICU 02-15 09:39
PROVIDERS: Admitting Provider Family Medicine; Emergency Provider Emergency Medicine; Family Provider Internal Medicine; PCP Internal Medicine; Visit Provider Internal Medicine
DX: G45.9 Transient cerebral ischemic attack, unspecified (principal); R29.818 Other symptoms and signs involving the nervous system; F17.210 Nicotine dependence, cigarettes, uncomplicated; R41.3 Other amnesia
CPT/HCPCS: 36591; 70450; 70548; 70553; 73502; 80048; 80320; 81001; 85025; 85610; 85730; 87797; 93005; 93306; 96360; 96361; 97162; 97166; 99283; 99285; G0378

== ENCOUNTER 2020-01-20 18:00 | Inpatient (IN) | payer MEDICARE, MEDICAID, SELFPAY ==
--- NOTE | 2020-01-20 18:07 | DI.CT.S_ITS ---
PROCEDURE: CT HEAD/BRAIN WO CON INDICATIONS: unresponsive episode, fall, history of stroke TECHNIQUE: Noncontrast 4.5 mm thick angled axial sections acquired from the foramen magnum to the vertex, with coronal and sagittal reformats. For radiation dose reduction, the following was used: automated exposure control, adjustment of mA and/or kV according to patient size. COMPARISON: [facility], CT, HEAD WITHOUT CONTRAST, 11/30/2017, 12:41. [facility], MR, MR STROKE, 02/15/2019, 10:12. [facility], CT, CT HEAD/BRAIN WO CON, 02/14/2019, 21:35. FINDINGS: Image quality: Excellent. CSF spaces: Basal cisterns are patent. No extra-axial fluid collections. The ventricles are symmetric in size and shape. Brain: No intracranial bleeds or masses. There is cerebral volume loss for age, with resultant ventricular and sulcal prominence. There are periventricular and deep white matter chronic small vessel ischemic changes. Remote lacunar infarctions are seen, including a relatively prominent focal infarction involving the right thalamus. A focal remote left occipital infarction is again seen. There is intracranial internal carotid artery atherosclerosis. Skull and face: Calvarium and visualized facial bones appear intact, without suspicious lesions. There is a right lens replacement seen. Sinuses: Visualized sinuses and mastoids are clear. IMPRESSION: No acute intracranial hemorrhage is seen. No acute intracranial process is seen. Note is made of age-appropriate brain parenchymal volume loss and chronic small vessel ischemic changes. Focal lacunar infarctions are again noted. A remote left occipital infarction can be seen. If there is strong clinical suspicion for an acute stroke, please consider an MRI for further evaluation, as it is more sensitive (assuming that there is no contraindication to MRI). Dictated by: Morgan Casillas M.D. on 01/20/2020 at 17:37 Approved by: Morgan Casillas M.D. on 01/20/2020 at 17:39
[2020-01-20 18:13] VITALS: BP 150/71; PULSE 76; RESP 19; TEMP 35.7; O2SAT 96
--- NOTE | 2020-01-20 18:21 | ED.SYNCOPE ---
HPI - Syncope General Chief Complaint: Syncope Stated Complaint: Syncope Time Seen by Provider: 01/20/20 18:01 Source: EMS Mode of arrival: EMS Limitations: altered mental status History of Present Illness HPI narrative: 79-year-old male smoker with history of stroke and hypertension presents by EMS after he had what sounds like a syncopal episode with a likely prolonged down time. Patient was brought in by EMS and was found to be unresponsive on their arrival. He slowly came to his current level of mentation at baseline. He is very confused about his recent history, he denies any recent illness such as nausea, vomiting or diarrhea. He has had no fever, chills or difficulty breathing. He denies any urinary complaints. Though there were bystanders they were very poor historians and had little to contribute. He denies any alcohol or street drugs. His blood glucose was in the 200s by EMS MD complaint: loss of consciousness and felt faint Description of event: post-event confusion Prodromal symptoms: none Witnessed: yes - by bystander Injuries sustained associated with event: none Current symptoms: weakness Treatments prior to arrival: none Related Data Home Medications Medication Instructions Recorded Confirmed aspirin 325 mg tablet 325 mg PO DAILY 02/27/19 Allergies Allergy/AdvReac Type Severity Reaction Status Date / Time No Known Drug Allergies Allergy Verified 02/27/19 15:54 Review of Systems Review of Systems ROS Unobtainable: All systems reviewed & are unremarkable except as noted in HPI and below Constitutional Constitutional: Denies chills, Denies fatigue, Denies fever(s), Denies frequent falls, Denies lethargy and Denies weakness Eyes Eyes: Denies change in vision, Denies eye discharge, Denies irritation and Denies loss of vision ENT Ears, Nose, Mouth, and Throat: Denies change in voice, Denies dizziness, Denies neck pain, Denies sore throat and Denies throat swelling Cardiovascular Cardiovascular: Denies chest pain, Denies irregular heart rhythm, Denies lightheadedness, Denies palpitations, Denies dyspnea, Denies dyspnea on exertion and Denies orthopnea Respiratory Respiratory: Denies cough, Denies dyspnea, Denies dyspnea on exertion and Denies wheezing Gastrointestinal Gastrointestinal: Denies abdominal pain, Denies change in bowel habits, Denies diarrhea, Denies nausea and Denies vomiting Genitourinary Genitourinary: Denies hematuria, Denies flank pain, Denies urinary incontinence and Denies urinary urgency Musculoskeletal Musculoskeletal: Denies back pain, Denies muscle weakness, Denies neck pain, Denies numbness and Denies tingling Integumentary/Breasts Skin/Breast: Denies pruritus, Denies erythema, Denies rash and Denies wounds Neurologic Neurologic: Denies behavioral changes, Denies confusion, Denies dizziness, Denies frequent falls, Denies loss of vision, Denies numbness, Denies tingling and Denies weakness Psychiatric Psychiatric: Denies anxiety, Denies behavioral changes, Denies confusion, Denies depression, Denies homicidal ideation and Denies suicidal ideation Endocrine Endocrine: Denies fatigue, Denies flushing and Denies palpitations Hematologic/Lymphatic Hematologic/Lymphatic: Denies easy bruising Allergic/Immunologic Allergic/Immunologic: Denies urticaria, Denies throat swelling and Denies wheezing Patient History Medical History (Updated 01/20/20 @ 20:02 by Tucker Girard DO) Malnutrition (Chronic 02/21/16) Personal history of stroke with current residual effects (Chronic ~01/2019) Postherpetic neuralgia (Chronic) Social History household members: family Smoking Status: Current every day smoker alcohol intake: never Smoking Status: Current every day smoker alcohol intake frequency: other Substance Use Type: does not use Exam Narrative Exam Narrative: GENERAL: [79] year old patient appears stated age. Very thin with temporal wasting, very hard of hearing and confused HEAD: Atraumatic. Normocephalic. EYES: Pupils equal round and reactive. Extraocular motions intact. No scleral icterus. No injection or drainage. ENT: Dry mucous membranes Nose without bleeding, purulent drainage. Throat without erythema, tonsillar hypertrophy or exudate. Airway patent. NECK: Trachea midline. Non tender CARDIOVASCULAR: Regular rate and rhythm without murmurs, gallops, or rubs. RESPIRATORY: Clear to auscultation. Breath sounds equal bilaterally. No wheezes, rales, or rhonchi. GASTROINTESTINAL: Abdomen soft, non-tender, nondistended. EXTREMITIES: No edema or joint tenderness. BACK: Nontender without deformity or crepitance. No flank tenderness. NEURO: Awake. Unaware of location or date. SKIN: Poor skin turgor No rash or erythema of visible areas Initial Vital Signs Initial Vital Signs: Vital Signs Temperature 96.3 F L 01/20/20 18:13 Pulse Rate 76 01/20/20 18:13 Respiratory Rate 19 01/20/20 18:13 Blood Pressure 150/71 H 01/20/20 18:13 Pulse Oximetry 96 01/20/20 18:13 Course Course Course Narrative: patient is very poor historian, and though he is asked about it and denies any diarrhea, he has now had 5 loose stools here in the department. He denies antibiotics, travel or bad food Orders Ordered: ED Orders 01/20/20 18:07 CT head/brain wo con Stat EKG-12 Lead Stat 01/20/20 18:16 C-Reactive Protein Quant Stat Complete Blood Count AUTO DIFF Stat Comprehensive Metabolic Panel Stat Ethanol (ETOH) Stat Ferritin Stat Lactate (Lactic Acid) Stat Magnesium Stat NT-proBNP (BNP-Adult 18+) Stat Partial Thromboplastin Time Stat Procalcitonin Stat Prolactin Stat Prothrombin Time INR Stat Troponin & CK Cardiac Panel Stat 01/20/20 19:52 XR chest 1V Stat 01/20/20 20:18 GI Panel (Film Array) Stat Urine Drug Screen, Rapid Stat Discontinued Medications Sodium Chloride (Normal Saline 0.9%) 1,000 mls @ 1,000 mls/hr IV BOLUS ONE Stop: 01/20/20 20:08 Last Admin: 01/20/20 20:26 Dose: 1,000 mls/hr Documented by: TETE Vital Signs Vital signs: Vital Signs - 8 hr 01/20/20 18:13 01/20/20 19:00 Temperature 96.3 F L Pulse Rate 76 80 Respiratory Rate 19 19 Blood Pressure 150/71 H Blood Pressure [Left Arm] 151/71 H Pulse Oximetry 96 99 MDM - Syncope Lab Data Result diagrams: 01/20/20 18:16 01/20/20 18:16 Labs: Lab Results 01/20/20 01/20/20 01/20/20 Range/Units 18:16 18:16 18:16 WBC 5.1 (4.5-11.0) X10^3/uL RBC 4.73 (4.5-5.9) X10^6/uL Hgb 14.2 (13.5-17.5) g/dL Hct 42.6 (41-53) % MCV 90.2 (80-100) fL MCH 30.0 (26-34) PG MCHC 33.3 (30-36) % RDW 14.6 (11.6-14.8) % Plt Count 301 (150-400) X10^3/uL Neut % (Auto) 59.6 (50-75) % Lymph % (Auto) 32.8 (25-40) % [place] % (Auto) 6.8 (3-14) % Eos % (Auto) 0.2 L (2-4) % Baso % (Auto) 0.6 (0-2) % Neut # (Auto) 3100 (8970-5227) /uL Lymph # (Auto) 1700 (8762-1699) /uL [place] # (Auto) 300 (0-900) /uL Eos # (Auto) 0 (0-450) /uL Baso # (Auto) 0 (0-100) /uL PT 10.6 (10.1-12.7) SECONDS INR 0.9 (0.9-1.3) APTT 29 D (26.4-36.2) SECONDS Sodium 135 L (137-145) mmol/L Potassium 3.9 (3.4-5.1) mmol/L Chloride 96 L (98-107) mmol/L Carbon Dioxide 24 (22-32) mmol/L BUN 24 H (9-20) mg/dL Creatinine 1.47 H (0.66-1.25) mg/dL Estimated GFR 46.2 L (>60) mL/min BUN/Creatinine Ratio 16.3 (6-22) Glucose 208 H (80-110) mg/dL Lactate (0.7-2.1) mmol/L Calcium 9.6 (8.4-10.2) mg/dL Magnesium 2.0 (1.6-2.3) mg/dL Ferritin 104 (18-464) ng/mL Total Bilirubin 0.6 (0.2-1.3) mg/dL AST 24 (17-59) IU/L ALT 12 (<50) IU/L Alkaline Phosphatase 81 (38-126) U/L Total Creatine Kinase (55-170) U/L CK-MB (CK-2) CK-MB (CK-2) Rel Index Troponin I (0.01-0.034) ng/mL C-Reactive Protein 4.5 H (<1.0) mg/dL NT-Pro-B Natriuret Pep 239 (<450) pg/mL Total Protein 8.1 (6.3-8.2) g/dL Albumin 4.2 (3.5-5.0) g/dL Globulin 3.9 (1.7-4.1) g/dL Albumin/Globulin Ratio 1.1 (1.0-2.8) Procalcitonin (<0.5) ng/mL Prolactin 34.7 H (3.7-17.9) ng/mL Urine Color Urine Appearance Urine pH (4.5-8.0) Ur Specific [place] (1.000-1.035) Urine Protein (Negative) Urine Glucose (UA) (Negative) g/dL Urine Ketones (NEGATIVE) Urine Occult Blood (Negative) Urine Nitrate (Negative) Urine Bilirubin (NEGATIVE) Urine Urobilinogen (0.2) E.U./dL Ur Leukocyte Esterase (NEGATIVE) Urine RBC (0-5/HPF) Urine WBC (0-5/HPF) Ur Squamous Epith Cells (0-5/HPF) Amorphous Sediment Urine Bacteria (None) Ur Culture Indicated? U Opiates 300ng/mL cut (Negative) Ur Oxycodone Screen (Negative) Urine Methadone Screen (Negative) Ur Barbiturates Screen (Negative) U Tricyclic Antidepress (Negative) Ur Phencyclidine Scrn (Negative) Ur Amphetamines Screen (Negative) U Methamphetamines Scrn (Negative) Ur MDMA Scrn (Ecstasy) (Negative) U Benzodiazepines Scrn (Negative) Urine Cocaine Screen (Negative) U Marijuana (THC) Screen (Negative) Ethyl Alcohol ( - 10) mg/dL COVID-19 PCR 01/20/20 01/20/20 01/20/20 Range/Units 18:16 18:16 18:16 WBC (4.5-11.0) X10^3/uL RBC (4.5-5.9) X10^6/uL Hgb (13.5-17.5) g/dL Hct (41-53) % MCV (80-100) fL MCH (26-34) PG MCHC (30-36) % RDW (11.6-14.8) % Plt Count (150-400) X10^3/uL Neut % (Auto) (50-75) % Lymph % (Auto) (25-40) % [place] % (Auto) (3-14) % Eos % (Auto) (2-4) % Baso % (Auto) (0-2) % Neut # (Auto) (4499-2098) /uL Lymph # (Auto) (7367-3136) /uL [place] # (Auto) (0-900) /uL Eos # (Auto) (0-450) /uL Baso # (Auto) (0-100) /uL PT (10.1-12.7) SECONDS INR (0.9-1.3) APTT (26.4-36.2) SECONDS Sodium (137-145) mmol/L Potassium (3.4-5.1) mmol/L Chloride (98-107) mmol/L Carbon Dioxide (22-32) mmol/L BUN (9-20) mg/dL Creatinine (0.66-1.25) mg/dL Estimated GFR (>60) mL/min BUN/Creatinine Ratio (6-22) Glucose (80-110) mg/dL Lactate 3.2 H (0.7-2.1) mmol/L Calcium (8.4-10.2) mg/dL Magnesium (1.6-2.3) mg/dL Ferritin (18-464) ng/mL Total Bilirubin (0.2-1.3) mg/dL AST (17-59) IU/L ALT (<50) IU/L Alkaline Phosphatase (38-126) U/L Total Creatine Kinase 54 L (55-170) U/L CK-MB (CK-2) TNP CK-MB (CK-2) Rel Index TNP Troponin I < 0.012 (0.01-0.034) ng/mL C-Reactive Protein (<1.0) mg/dL NT-Pro-B Natriuret Pep (<450) pg/mL Total Protein (6.3-8.2) g/dL Albumin (3.5-5.0) g/dL Globulin (1.7-4.1) g/dL Albumin/Globulin Ratio (1.0-2.8) Procalcitonin < 0.05 (<0.5) ng/mL Prolactin (3.7-17.9) ng/mL Urine Color Urine Appearance Urine pH (4.5-8.0) Ur Specific [place] (1.000-1.035) Urine Protein (Negative) Urine Glucose (UA) (Negative) g/dL Urine Ketones (NEGATIVE) Urine Occult Blood (Negative) Urine Nitrate (Negative) Urine Bilirubin (NEGATIVE) Urine Urobilinogen (0.2) E.U./dL Ur Leukocyte Esterase (NEGATIVE) Urine RBC (0-5/HPF) Urine WBC (0-5/HPF) Ur Squamous Epith Cells (0-5/HPF) Amorphous Sediment Urine Bacteria (None) Ur Culture Indicated? U Opiates 300ng/mL cut (Negative) Ur Oxycodone Screen (Negative) Urine Methadone Screen (Negative) Ur Barbiturates Screen (Negative) U Tricyclic Antidepress (Negative) Ur Phencyclidine Scrn (Negative) Ur Amphetamines Screen (Negative) U Methamphetamines Scrn (Negative) Ur MDMA Scrn (Ecstasy) (Negative) U Benzodiazepines Scrn (Negative) Urine Cocaine Screen (Negative) U Marijuana (THC) Screen (Negative) Ethyl Alcohol ( - 10) mg/dL COVID-19 PCR 01/20/20 01/20/20 01/20/20 Range/Units 18:16 20:18 20:18 WBC (4.5-11.0) X10^3/uL RBC (4.5-5.9) X10^6/uL Hgb (13.5-17.5) g/dL Hct (41-53) % MCV (80-100) fL MCH (26-34) PG MCHC (30-36) % RDW (11.6-14.8) % Plt Count (150-400) X10^3/uL Neut % (Auto) (50-75) % Lymph % (Auto) (25-40) % [place] % (Auto) (3-14) % Eos % (Auto) (2-4) % Baso % (Auto) (0-2) % Neut # (Auto) (6465-3042) /uL Lymph # (Auto) (1265-4170) /uL [place] # (Auto) (0-900) /uL Eos # (Auto) (0-450) /uL Baso # (Auto) (0-100) /uL PT (10.1-12.7) SECONDS INR (0.9-1.3) APTT (26.4-36.2) SECONDS Sodium (137-145) mmol/L Potassium (3.4-5.1) mmol/L Chloride (98-107) mmol/L Carbon Dioxide (22-32) mmol/L BUN (9-20) mg/dL Creatinine (0.66-1.25) mg/dL Estimated GFR (>60) mL/min BUN/Creatinine Ratio (6-22) Glucose (80-110) mg/dL Lactate (0.7-2.1) mmol/L Calcium (8.4-10.2) mg/dL Magnesium (1.6-2.3) mg/dL Ferritin (18-464) ng/mL Total Bilirubin (0.2-1.3) mg/dL AST (17-59) IU/L ALT (<50) IU/L Alkaline Phosphatase (38-126) U/L Total Creatine Kinase (55-170) U/L CK-MB (CK-2) CK-MB (CK-2) Rel Index Troponin I (0.01-0.034) ng/mL C-Reactive Protein (<1.0) mg/dL NT-Pro-B Natriuret Pep (<450) pg/mL Total Protein (6.3-8.2) g/dL Albumin (3.5-5.0) g/dL Globulin (1.7-4.1) g/dL Albumin/Globulin Ratio (1.0-2.8) Procalcitonin (<0.5) ng/mL Prolactin (3.7-17.9) ng/mL Urine Color Urine Appearance Urine pH (4.5-8.0) Ur Specific [place] (1.000-1.035) Urine Protein (Negative) Urine Glucose (UA) (Negative) g/dL Urine Ketones (NEGATIVE) Urine Occult Blood (Negative) Urine Nitrate (Negative) Urine Bilirubin (NEGATIVE) Urine Urobilinogen (0.2) E.U./dL Ur Leukocyte Esterase (NEGATIVE) Urine RBC (0-5/HPF) Urine WBC (0-5/HPF) Ur Squamous Epith Cells (0-5/HPF) Amorphous Sediment Urine Bacteria (None) Ur Culture Indicated? U Opiates 300ng/mL cut Negative (Negative) Ur Oxycodone Screen Negative (Negative) Urine Methadone Screen Negative (Negative) Ur Barbiturates Screen Negative (Negative) U Tricyclic Antidepress Negative (Negative) Ur Phencyclidine Scrn Negative (Negative) Ur Amphetamines Screen Negative (Negative) U Methamphetamines Scrn Negative (Negative) Ur MDMA Scrn (Ecstasy) Negative (Negative) U Benzodiazepines Scrn Negative (Negative) Urine Cocaine Screen Negative (Negative) U Marijuana (THC) Screen Negative (Negative) Ethyl Alcohol < 10 ( - 10) mg/dL COVID-19 PCR Cancelled 01/20/20 01/20/20 Range/Units 20:18 20:39 WBC (4.5-11.0) X10^3/uL RBC (4.5-5.9) X10^6/uL Hgb (13.5-17.5) g/dL Hct (41-53) % MCV (80-100) fL MCH (26-34) PG MCHC (30-36) % RDW (11.6-14.8) % Plt Count (150-400) X10^3/uL Neut % (Auto) (50-75) % Lymph % (Auto) (25-40) % [place] % (Auto) (3-14) % Eos % (Auto) (2-4) % Baso % (Auto) (0-2) % Neut # (Auto) (2574-5804) /uL Lymph # (Auto) (8974-7580) /uL [place] # (Auto) (0-900) /uL Eos # (Auto) (0-450) /uL Baso # (Auto) (0-100) /uL PT (10.1-12.7) SECONDS INR (0.9-1.3) APTT (26.4-36.2) SECONDS Sodium (137-145) mmol/L Potassium (3.4-5.1) mmol/L Chloride (98-107) mmol/L Carbon Dioxide (22-32) mmol/L BUN (9-20) mg/dL Creatinine (0.66-1.25) mg/dL Estimated GFR (>60) mL/min BUN/Creatinine Ratio (6-22) Glucose (80-110) mg/dL Lactate 1.7 (0.7-2.1) mmol/L Calcium (8.4-10.2) mg/dL Magnesium (1.6-2.3) mg/dL Ferritin (18-464) ng/mL Total Bilirubin (0.2-1.3) mg/dL AST (17-59) IU/L ALT (<50) IU/L Alkaline Phosphatase (38-126) U/L Total Creatine Kinase (55-170) U/L CK-MB (CK-2) CK-MB (CK-2) Rel Index Troponin I (0.01-0.034) ng/mL C-Reactive Protein (<1.0) mg/dL NT-Pro-B Natriuret Pep (<450) pg/mL Total Protein (6.3-8.2) g/dL Albumin (3.5-5.0) g/dL Globulin (1.7-4.1) g/dL Albumin/Globulin Ratio (1.0-2.8) Procalcitonin (<0.5) ng/mL Prolactin (3.7-17.9) ng/mL Urine Color Brown Urine Appearance Cloudy Urine pH 5.0 (4.5-8.0) Ur Specific [place] 1.025 (1.000-1.035) Urine Protein 2+ H (Negative) Urine Glucose (UA) Negative (Negative) g/dL Urine Ketones 1+ H (NEGATIVE) Urine Occult Blood 3+ H (Negative) Urine Nitrate Negative (Negative) Urine Bilirubin Negative (NEGATIVE) Urine Urobilinogen 1.0 (0.2) E.U./dL Ur Leukocyte Esterase Negative (NEGATIVE) Urine RBC >100/hpf (0-5/HPF) Urine WBC 0-1/hpf (0-5/HPF) Ur Squamous Epith Cells 0-1 /hpf (0-5/HPF) Amorphous Sediment 1+ Urine Bacteria Occasional (0-1) (None) Ur Culture Indicated? Cult not indicated U Opiates 300ng/mL cut (Negative) Ur Oxycodone Screen (Negative) Urine Methadone Screen (Negative) Ur Barbiturates Screen (Negative) U Tricyclic Antidepress (Negative) Ur Phencyclidine Scrn (Negative) Ur Amphetamines Screen (Negative) U Methamphetamines Scrn (Negative) Ur MDMA Scrn (Ecstasy) (Negative) U Benzodiazepines Scrn (Negative) Urine Cocaine Screen (Negative) U Marijuana (THC) Screen (Negative) Ethyl Alcohol ( - 10) mg/dL COVID-[address] scan - head: Radiologist's Impression: Chart Viewer Diagnostics DATE TYPE STATUS AUTHOR Hx 01/20/20 18:07 Morgan Casillas 02/15/19 06:00 James Ervin 02/15/19 06:00 Ewa Whitesidediah 02/14/19 23:39 02/14/19 21:10 Gen Whiteside 02/14/19 20:40 Jose Trevino James W 79, M0 1940 REG ER, Main ED R01 65.771kg Syncope Search Chart No Data to Display ONSET ~01/201902/21/16 Today 19:00 Nicanor Mehta 79 M 1940 [place] [address] CT Scan Report Signed Patient: Nicanor Mehta WMR#: [id number] : 1940Acct:[id number] Age/Sex: 79 / MDate of Service: 01/20/20 Loc: ED Accession Number: [id number] Procedure: CT head/brain wo con Ordering Provider: Tucker Girard D.O. PROCEDURE: CT HEAD/BRAIN WO CON INDICATIONS: unresponsive episode, fall, history of stroke TECHNIQUE: Noncontrast 4.5 mm thick angled axial sections acquired from the foramen magnum to the vertex, with coronal and sagittal reformats. For radiation dose reduction, the following was used: automated exposure control, adjustment of mA and/or kV according to patient size. COMPARISON: [facility], CT, HEAD WITHOUT CONTRAST, 11/30/2017, 12:41. [facility], MR, MR STROKE, 02/15/2019, 10:12. [facility], CT, CT HEAD/BRAIN WO CON, 02/14/2019, 21:35. FINDINGS: Image quality: Excellent. CSF spaces: Basal cisterns are patent. No extra-axial fluid collections. The ventricles are symmetric in size and shape. Brain: No intracranial bleeds or masses. There is cerebral volume loss for age, with resultant ventricular and sulcal prominence. There are periventricular and deep white matter chronic small vessel ischemic changes. Remote lacunar infarctions are seen, including a relatively prominent focal infarction involving the right thalamus. A focal remote left occipital infarction is again seen. There is intracranial internal carotid artery atherosclerosis. Skull and face: Calvarium and visualized facial bones appear intact, without suspicious lesions. There is a right lens replacement seen. Sinuses: Visualized sinuses and mastoids are clear. IMPRESSION: No acute intracranial hemorrhage is seen. No acute intracranial process is seen. Note is made of age-appropriate brain parenchymal volume loss and chronic small vessel ischemic changes. Focal lacunar infarctions are again noted. A remote left occipital infarction can be seen. If there is strong clinical suspicion for an acute stroke, please consider an MRI for further evaluation, as it is more sensitive (assuming that there is no contraindication to MRI). Dictated by: Morgan Casillas M.D. on 01/20/2020 at 17:37 Approved by: Morgan Casillas M.D. on 01/20/2020 at 17:39 ECG Data Attestation: I personally reviewed and interpreted this ECG as follows: Interpretation: EKG is normal sinus rhythm rate [74 ] and free of any signs of ischemia or ectopy. No ST segmental elevation or depression. No T wave inversions Discharge Plan Departure Patient Disposition: Admitted as Observation Clinical Impression: Atypical syncope, Acute kidney injury, Acute dehydration Admit Date/Time: 01/20/20 20:55 Admit Provider: Zaida Fierro
[2020-01-20 18:24] LABS: Add Manual Diff / Slide Review NO; Basophils Absolute Auto 0 /uL (0-100); Basophils Percent Auto 0.6 % (0-2); Eosinophils Absolute Auto 0 /uL (0-450); Eosinophils Percent Auto 0.2 % (2-4); Hematocrit 42.6 % (41-53); Hemoglobin 14.2 g/dL (13.5-17.5); Lymphocytes Absolute Auto 1700 /uL (1100-4500); Lymphocytes Percent Auto 32.8 % (25-40); Mean Corpuscular HGB Conc 33.3 % (30-36); Mean Corpuscular Volume 90.2 fL (80-100); Monocytes Absolute Auto 300 /uL (0-900); Monocytes Percent Auto 6.8 % (3-14); Neutrophils Absolute Auto 3100 /uL (1500-7000); Neutrophils Percent Auto 59.6 % (50-75); Platelet Count 301 X10^3/uL (150-400); Red Blood Cell Count 4.73 X10^6/uL (4.5-5.9); Red Cell Distribution Width 14.6 % (11.6-14.8); White Blood Cell Count 5.1 X10^3/uL (4.5-11.0)
[2020-01-20 18:37] LABS: INR 0.9 (0.9-1.3); Prothrombin Time 10.6 SECONDS (10.1-12.7)
[2020-01-20 18:40] LABS: PTT Partial Thromboplastin Tim 29 SECONDS (26.4-36.2)
[2020-01-20 18:42] LABS: Creatine Kinase 54 U/L (55-170); Lactate (Lactic Acid) 3.2 mmol/L (0.7-2.1)
[2020-01-20 18:44] LABS: Alanine Aminotransferase 12 IU/L (<50); Albumin 4.2 g/dL (3.5-5.0); Albumin Globulin Ratio 1.1 (1.0-2.8); Alkaline Phosphatase 81 U/L (38-126); Aspartate Aminotransferase 24 IU/L (17-59); BUN Creatinine Ratio 16.3 (6-22); Bilirubin Total 0.6 mg/dL (0.2-1.3); Blood Urea Nitrogen 24 mg/dL (9-20); C-Reactive Protein Quant 4.5 mg/dL (<1.0); Calcium 9.6 mg/dL (8.4-10.2); Carbon Dioxide 24 mmol/L (22-32); Chloride 96 mmol/L (98-107); Estimated Glomerular Filt Rate 46.2 mL/min (>60); Globulin 3.9 g/dL (1.7-4.1); Glucose 208 mg/dL (80-110); HEMOLYSIS < 15 (0-50); Potassium 3.9 mmol/L (3.4-5.1); Sodium 135 mmol/L (137-145); Total Protein 8.1 g/dL (6.3-8.2)
[2020-01-20 18:51] LABS: NT-proBNP (BNP-Adult 18+) 239 pg/mL (<450)
[2020-01-20 18:54] LABS: Troponin I < 0.012 ng/mL (0.01-0.034)
[2020-01-20 18:58] LABS: Prolactin 34.7 ng/mL (3.7-17.9)
[2020-01-20 19:00] VITALS: BP 151/71; PULSE 80; RESP 19; O2SAT 99
[2020-01-20 19:03] LABS: Procalcitonin < 0.05 ng/mL (<0.5)
[2020-01-20 19:16] LABS: Ferritin 104 ng/mL (18-464)
--- NOTE | 2020-01-20 19:52 | DI.RAD.S_ITS ---
PROCEDURE: XR CHEST 1V INDICATIONS: syncope, confusion, down time TECHNIQUE: One view of the chest was acquired. COMPARISON: [facility], , CHEST 2 VIEW, 11/29/2017, 14:18. FINDINGS: Surgical changes and devices: None. Lungs and pleura: Hyperinflation consistent with COPD. Lungs are clear. No pleural effusions or pneumothorax. Mediastinum: Mediastinal contours appear normal. Heart size is normal. Bones and chest wall: No suspicious bony lesions. Overlying soft tissues appear unremarkable. IMPRESSION: COPD. Dictated by: Frantz Al M.D. on 01/20/2020 at 20:16 Approved by: Frantz Al M.D. on 01/20/2020 at 20:17
[2020-01-20 19:59] LABS: Ethanol (ETOH) < 10 mg/dL
[2020-01-20 20:20] LABS: Reflexed Lactate in 2 Hours Y
[2020-01-20] MEDS: SODIUM CHLORIDE 0.9% 1,000 ML 1000 ML IV (20:26)
[2020-01-20 20:56] LABS: Lactate 2HR (Lactic Acid Rflx) 1.7 mmol/L (0.7-2.1)
[2020-01-20 21:00] VITALS: BP 177/80; PULSE 78; RESP 18; O2SAT 99
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
[2020-01-20 21:03] LABS: UR Morphine/Opiate cutoff 300 Negative (Negative); Ur Creatinine Normal (Normal); Ur Specific Gravity Normal (Normal); Urine Amphetamines Negative (Negative); Urine Barbiturates Negative (Negative); Urine Benzodiazepines Negative (Negative); Urine Cocaine Negative (Negative); Urine MDMA Negative (Negative); Urine Methadone Negative (Negative); Urine Methamphetamines Negative (Negative); Urine Oxycodone Negative (Negative); Urine Phencyclidine Negative (Negative); Urine Tetrahydrocannabinol Negative (Negative); Urine Tricyclic Antidepressant Negative (Negative); Urine pH Normal (Normal)
[2020-01-20 21:11] LABS: Appearance Urine UA CLOUDY; Color Urine UA BROWN; Glucose Urine UA NEGATIVE (Negative); Ketones Urine UA 1+ (NEGATIVE); Leukocyte Esterase Urine UA NEGATIVE (NEGATIVE); Nitrite Urine UA NEGATIVE (Negative); Occult Blood Urine UA 3+ (Negative); Protein Urine UA 2+ (Negative); Specific Gravity Urine UA 1.025 (1.000-1.035)
[2020-01-20 21:19] LABS: Bilirubin Urine UA Negative (NEGATIVE); RBC Urine >100/HPF (0-5/HPF); WBC Urine 0-1/HPF (0-5/HPF)
[2020-01-20 21:20] LABS: Amorphous Sediment Urine 1+; Bacteria Urine Occasional (0-1); Culture Indicated Urine Cult Not Indicated; Squamous Epithelial Cell Urine 0-1 /HPF (0-5/HPF)
[2020-01-20 21:54] VITALS: BMI 22.7
[2020-01-20 21:56] VITALS: BP 150/73; PULSE 75; RESP 19; TEMP 37.3; O2SAT 98
[2020-01-20 21:59] LABS: COVID19 -Nasal RAPID Negative (Negative)
[2020-01-20 22:26] LABS: Adenovirus F 40/41 Not Detected (Not Detect); Astrovirus Not Detected (Not Detect); Campylobacter Not Detected (Not Detect); Clostridium difficile toxin AB Not Detected (Not Detect); Cryptosporidium Not Detected (Not Detect); Cyclospora cayetanensis Not Detected (Not Detect); Entamoeba histolytica Not Detected (Not Detect); Enteroaggregative E.coli Not Detected (Not Detect); Enteropathogenic E.coli Detected (Not Detect); Enterotoxigenic E.coli It/st Not Detected (Not Detect); Giardia lamblia Not Detected (Not Detect); Norovirus GI/GII Not Detected (Not Detect); Plesiomonsa shigelloides Not Detected (Not Detect); Rotavirus A Not Detected (Not Detect); Salmonella Not Detected (Not Detect); Sapovirus Not Detected (Not Detect); Shiga-like toxin-prod E.coli Not Detected (Not Detect); Shigella/Enteroinvasive E.coli Not Detected (Not Detect); Vibrio Not Detected (Not Detect); Vibrio cholerae Not Detected (Not Detect); Yersinia enterocolitica Not Detected (Not Detect)
[2020-01-20 23:45] VITALS: O2SAT 98
[2020-01-21] VITALS (8 sets, daily range): BP systolic 127–163; BP diastolic 59–75; PULSE 54–66; RESP 15–20; TEMP 36.1–36.7; O2SAT 96–98; BMI 15.6
[2020-01-21] MEDS: SODIUM CHLORIDE 0.9% 1,000 ML 100 ML IV ×2 (01:10→22:26)
[2020-01-21 05:12] LABS: Add Manual Diff / Slide Review NO; Basophils Absolute Auto 0 /uL (0-100); Basophils Percent Auto 0.4 % (0-2); Eosinophils Absolute Auto 0 /uL (0-450); Eosinophils Percent Auto 0.6 % (2-4); Hematocrit 34.9 % (41-53); Hemoglobin 12.2 g/dL (13.5-17.5); Lymphocytes Absolute Auto 1800 /uL (1100-4500); Lymphocytes Percent Auto 29.9 % (25-40); Mean Corpuscular HGB Conc 34.8 % (30-36); Mean Corpuscular Hemoglobin 30.7 PG (26-34); Mean Corpuscular Volume 88.2 fL (80-100); Monocytes Absolute Auto 600 /uL (0-900); Monocytes Percent Auto 10.4 % (3-14); Neutrophils Absolute Auto 3500 /uL (1500-7000); Neutrophils Percent Auto 58.7 % (50-75); Platelet Count 247 X10^3/uL (150-400); Red Blood Cell Count 3.96 X10^6/uL (4.5-5.9); Red Cell Distribution Width 14.8 % (11.6-14.8); White Blood Cell Count 5.9 X10^3/uL (4.5-11.0)
[2020-01-21 05:28] LABS: BUN Creatinine Ratio 24.5 (6-22); Blood Urea Nitrogen 24 mg/dL (9-20); Calcium 8.7 mg/dL (8.4-10.2); Carbon Dioxide 27 mmol/L (22-32); Chloride 103 mmol/L (98-107); Estimated Glomerular Filt Rate > 60.0 mL/min (>60); Glucose 94 mg/dL (80-110); HEMOLYSIS < 15 (0-50); Potassium 4.4 mmol/L (3.4-5.1); Sodium 134 mmol/L (137-145)
--- NOTE | 2020-01-21 06:38 | PC.NURSE ---
Stock Mover Note-Patient is alert and oriented to person and place, very [place], no hearing aides, reads lips, cooperative. Up to BSC with 1-2 person assist, had medium loose stool, brief wet, small amount of jefry blood from penis, denies pain. NS @ 100ml/hr after 1 liter bolus complete. SB/SR. COVID-19 and C-Diff reported as negative
--- NOTE | 2020-01-21 10:50 | DIET.PN ---
Dietary Progress Note Assessment: 79y M c progressive dementia admitted for severe dehydration, PCM, adult FTT, and hx of CVA referred to nutrition for malnutrition assessment and low Tobias score. HT: 170.1cm WT: 45.3 UBW: 51kg BMI: 15.7 (severe for age) Labs: admit BUN 24 H, admit eGFR 46.2 L MNA: 8 at risk for malnutrition Tobias: 14 high risk for skin breakdown Nutrition Diagnosis: Chronic Severe PCM r/t physical and psychological causes (lives alone, severe progressive dementia) aeb 12% unintentional wt loss in 6mo (severe), BMI 15.7 (severe), severe global fat and muscle wasting apparent in temples, deltoid, clavicle, femur, pt admitted c [place] secondary to dehydration. Interventions: 1. Recc ONS Ensure Enlive tid in addition to meal trays to provide 75% kcal and 100% pro needs to support skin integrity and weight gain. Diet Order: General EER: 1500kcal, 60g PRO (1.3g/kg per maln), 1.5L fluids Monitoring/Evaluations: POs, ONS tolerance
--- NOTE | 2020-01-21 11:08 | PT.IIE ---
Medical History (Last Reviewed 01/21/20 @ 02:30 by KOLTON Perry) Malnutrition (Chronic 02/21/16) Personal history of stroke with current residual effects (Chronic ~01/2019) Postherpetic neuralgia (Chronic) Physical Therapy Inpatient Evaluation/Re-Eval M1 PT/OT-IP Prior Functional Status Start: 01/21/20 12:47 Freq: NEEDED Status: Active Protocol: Document 01/21/20 12:47 [facility] (Rec: 01/21/20 13:17 [facility] [id number]) Medical Review Prior Functional Status Medical History Reviewed Yes Diet/Fluid Consistency Regular Communication [place], better hearing on R side Mobility and Gait pt typically indep without AD and walks around on property Activities of Daily Living and IADL's Indep with ADLS typically, reports he cooks and cleans, did appear to be somewhat confused re: questions though Social History Household Members family Living Arrangements House Number of Floors (Floors) One Floor Number of Stairs To Enter/Railing? 3 [place] with rail Home Environment Standard Height Toilet,Walk in Shower Home Equipment Shower Seat with Backrest,Grab Bars In Shower Additional Social History Comment lives with FOZIA on [facility], FOZIA reports pt has been falling a lot over the past few weeks. M2 PT-IP Current Condition Start: 01/21/20 12:47 Freq: NEEDED Status: Active Protocol: Document 01/21/20 12:47 [facility] (Rec: 01/21/20 13:17 [facility] [id number]) Physical Therapy Current Condition Current Condition Evaluation Date 01/21/20 Treatment Diagnosis failure to thrive, weakness M3 PT-IP Subjective Start: 01/21/20 12:47 Freq: NEEDED Status: Active Protocol: Document 01/21/20 12:47 [facility] (Rec: 01/21/20 13:17 [facility] [id number]) Subjective Physical Therapy Visit Type Type Initial Evaluation Visit Start Time 10:30 Visit Stop Time 11:08 Total Visit Minutes 38 Number of COMPOSITION BOARD PRESS OPERATOR Visits 0 Physical Therapy Visit Comments Patient Comments Pt agrees to get up M4 PT-IP Mobility and Gait Start: 01/21/20 12:47 Freq: NEEDED Status: Active Protocol: Document 01/21/20 12:47 [facility] (Rec: 01/21/20 13:17 [facility] [id number]) PT-Bed Mobility Assessment Supine to Sit Supine to Sit Minimal Assistance Scooting Scooting to Edge of Bed Contact Guard Assistance PT-Transfer Assessment Sit to and From Stand Sit to and from Stand Minimal Assistance Equipment Transfer Assistive Device Gait Belt,Front Wheeled Walker Orthotic/Prosthetic Devices or Brace: No Comments Mobility Comments Pt did bed mobility with min A and min A to stand then amb CGA aout 150ft with FWW with occasional min A for walker use as he would step to the side of it rather than in it when walking especially when turning corners. Pt sat in chair with call light in reach . Gait Assessment Gait Gait Assistance Required: Minimum Assistance Distance (Feet) 150 Assistive Devices Assistive Device Gait Belt,Front Wheeled Walker Gait Deviations General Gait Pattern Decreased Feet Clearance, Flexed Trunk Factors Limiting Gait Function Factors Limiting Gait Function Decreased Strength,Poor Balance,Poor Safety Awareness Comments Gait Comments see above PT-Balance Assessment Sitting Balance and Reactions Static Sitting Balance Ability Good Dynamic Sitting Balance Ability Good Standing Balance and Reactions Static Standing Balance Ability Fair Dynamic Standing Balance Ability Poor Device Used FWW M5 PT-IP Objective Assessments Start: 01/21/20 12:47 Freq: NEEDED Status: Active Protocol: Document 01/21/20 12:47 [facility] (Rec: 01/21/20 13:17 [facility] [id number]) Orientation Orientation/Cognition Level of Alertness Confusional State Language Function Ability Hard of Hearing Safety Awareness Decreased Safety Awareness Strength Lower Extremity Strength Assessment Bilaterally Impaired Comments Strength Comments grossly 3+/5 LE strength M6 PT-IP Treatment Start: 01/21/20 12:47 Freq: NEEDED Status: Active Protocol: Document 01/21/20 12:47 [facility] (Rec: 01/21/20 13:17 [facility] [id number]) Physical Therapy Treatment Education Education Provided Safety M7 PT-IP Assessment and Plan Start: 01/21/20 12:47 Freq: NEEDED Status: Active Protocol: Document 01/21/20 12:47 [facility] (Rec: 01/21/20 13:17 [facility] [id number]) PT Summary Assessment and Plan Potential Rehabilitation Potential Good Status of Condition at Evaluation Evolving Summary Impairments Strength,Balance,Bed Mobility, Transfers,Gait,Activity Tolerance Assessment Summary Pt presented to hospital w/ failure to thrive and was found down in his home. He has been falling frequently over the last week and has significnatly declined per FOZIA . Pt is not safe with his mobility at this time and is requiring assist with all mobility so would benefit from SNF rehab prior to returning home in order to improve his strength, functional ability, and dec fall risk. Goals Bed Mobility Goal Standby Assistance Transfer Goal Contact Guard Assistance Gait Goal Contact Guard Assistance Gait Distance 200ft Other Goals up/down 3 stairs iwth rail CGA Days to Meet Goals 5 Frequency of Treatment Frequency Of Treatment Once a Day Treatment Plan Physical Therapy Treatment Plan Bed Mobility Training,Transfer Training,Gait Training, Therapeutic Exercise,Balance Retraining,Neuromuscular Re-ed Other Recommendations and Next Treatment work on gait, sit to stands, Focus balance, try cane instead of walker to see if safer Recommendations To Nursing Amount of Assist Needed 1 Person Assist Discharge Recommendations PT Discharge Recommendations SNF Rehab Transportation Needs at Discharge Private Vehicle,Wheelchair/ Cabulance
--- NOTE | 2020-01-21 13:59 | PM.PN.1 ---
Subjective Subjective Date Patient Seen: 01/21/20 Interval history: Patient is very hard of hearing. He was brought to the hospital as he was found down at home. Patient does not recall what happened and cannot provide any further history. By report he had diarrhea. CDiff was negative but patient grew Enteropathic ECOLI, Exam Vital Signs (past 8 hours): - 01/21/20 08:00 01/21/20 12:00 01/21/20 12:16 Temperature 98.0 F 97.5 F L Pulse Rate 55 L 59 L Respiratory Rate 20 17 Blood Pressure 130/60 127/59 L Pulse Oximetry 98 96 96 Oxygen Delivery Method Room Air Oxygen Flow Rate 0 Narrative Exam Narrative: Elderly male very [place] but in NAD Lungs: Clear to auscultation CV: RRR nl Sl S2 ABd; Soft/ non tender/ non distended Ext: no edema Objective Labs Result Diagrams: 01/21/20 04:39 01/21/20 04:39 Labs: Laboratory Results - last 24 hr 01/20/20 01/20/20 01/20/20 18:16 18:16 18:16 WBC 5.1 RBC 4.73 Hgb 14.2 Hct 42.6 MCV 90.2 MCH 30.0 MCHC 33.3 RDW 14.6 Plt Count 301 Neut % (Auto) 59.6 Lymph % (Auto) 32.8 [place] % (Auto) 6.8 Eos % (Auto) 0.2 L Baso % (Auto) 0.6 Neut # (Auto) 3100 Lymph # (Auto) 1700 [place] # (Auto) 300 Eos # (Auto) 0 Baso # (Auto) 0 PT 10.6 INR 0.9 APTT 29 D Sodium 135 L Potassium 3.9 Chloride 96 L Carbon Dioxide 24 BUN 24 H Creatinine 1.47 H Estimated GFR 46.2 L BUN/Creatinine Ratio 16.3 Glucose 208 H Lactate Calcium 9.6 Magnesium 2.0 Ferritin 104 Total Bilirubin 0.6 AST 24 ALT 12 Alkaline Phosphatase 81 Total Creatine Kinase CK-MB (CK-2) CK-MB (CK-2) Rel Index Troponin I C-Reactive Protein 4.5 H NT-Pro-B Natriuret Pep 239 Total Protein 8.1 Albumin 4.2 Globulin 3.9 Albumin/Globulin Ratio 1.1 Procalcitonin Prolactin 34.7 H Urine Color Urine Appearance Urine pH Ur Specific Mcbh [place] Urine Protein Urine Glucose (UA) Urine Ketones Urine Occult Blood Urine Nitrate Urine Bilirubin Urine Urobilinogen Ur Leukocyte Esterase Urine RBC Urine WBC Ur Squamous Epith Cells Amorphous Sediment Urine Bacteria Ur Culture Indicated? Stl C. cayetanensis PCR Stool Rotavirus (PCR) Stool Adenovirus (PCR) Stool Astrovirus (PCR) Stool Cryptosporidium PCR Stl E.coli Shiga Tox PCR St Sh/Enteroin Ecoli PCR Stool E coli O157 PCR Stl Enterotoxigenic E PCR Stool EPEC (PCR) Stl E. histolytica PCR Stool Giardia Lamblia PCR Stool Sapovirus (PCR) Stl P. shigelloides PCR St Y.enterocolitica PCR Stool Vibrio (PCR) Stl Vibrio cholerae PCR Stl Enteroaggr Ecoli PCR Stl Norovirus GI/GII PCR U Opiates 300ng/mL cut Ur Oxycodone Screen Urine Methadone Screen Ur Barbiturates Screen U Tricyclic Antidepress Ur Phencyclidine Scrn Ur Amphetamines Screen U Methamphetamines Scrn Ur MDMA Scrn (Ecstasy) U Benzodiazepines Scrn Urine Cocaine Screen U Marijuana (THC) Screen Ethyl Alcohol Campylobacter (PCR) C. difficile Tox (PCR) COVID-19 PCR Salmonella (PCR) 01/20/20 01/20/20 01/20/20 18:16 18:16 18:16 WBC RBC Hgb Hct MCV MCH MCHC RDW Plt Count Neut % (Auto) Lymph % (Auto) [place] % (Auto) Eos % (Auto) Baso % (Auto) Neut # (Auto) Lymph # (Auto) [place] # (Auto) Eos # (Auto) Baso # (Auto) PT INR APTT Sodium Potassium Chloride Carbon Dioxide BUN Creatinine Estimated GFR BUN/Creatinine Ratio Glucose Lactate 3.2 H Calcium Magnesium Ferritin Total Bilirubin AST ALT Alkaline Phosphatase Total Creatine Kinase 54 L CK-MB (CK-2) TNP CK-MB (CK-2) Rel Index TNP Troponin I < 0.012 C-Reactive Protein NT-Pro-B Natriuret Pep Total Protein Albumin Globulin Albumin/Globulin Ratio Procalcitonin < 0.05 Prolactin Urine Color Urine Appearance Urine pH Ur Specific Mcbh [place] Urine Protein Urine Glucose (UA) Urine Ketones Urine Occult Blood Urine Nitrate Urine Bilirubin Urine Urobilinogen Ur Leukocyte Esterase Urine RBC Urine WBC Ur Squamous Epith Cells Amorphous Sediment Urine Bacteria Ur Culture Indicated? Stl C. cayetanensis PCR Stool Rotavirus (PCR) Stool Adenovirus (PCR) Stool Astrovirus (PCR) Stool Cryptosporidium PCR Stl E.coli Shiga Tox PCR St Sh/Enteroin Ecoli PCR Stool E coli O157 PCR Stl Enterotoxigenic E PCR Stool EPEC (PCR) Stl E. histolytica PCR Stool Giardia Lamblia PCR Stool Sapovirus (PCR) Stl P. shigelloides PCR St Y.enterocolitica PCR Stool Vibrio (PCR) Stl Vibrio cholerae PCR Stl Enteroaggr Ecoli PCR Stl Norovirus GI/GII PCR U Opiates 300ng/mL cut Ur Oxycodone Screen Urine Methadone Screen Ur Barbiturates Screen U Tricyclic Antidepress Ur Phencyclidine Scrn Ur Amphetamines Screen U Methamphetamines Scrn Ur MDMA Scrn (Ecstasy) U Benzodiazepines Scrn Urine Cocaine Screen U Marijuana (THC) Screen Ethyl Alcohol Campylobacter (PCR) C. difficile Tox (PCR) COVID-19 PCR Salmonella (PCR) 01/20/20 01/20/20 01/20/20 18:16 20:18 20:18 WBC RBC Hgb Hct MCV MCH MCHC RDW Plt Count Neut % (Auto) Lymph % (Auto) [place] % (Auto) Eos % (Auto) Baso % (Auto) Neut # (Auto) Lymph # (Auto) [place] # (Auto) Eos # (Auto) Baso # (Auto) PT INR APTT Sodium Potassium Chloride Carbon Dioxide BUN Creatinine Estimated GFR BUN/Creatinine Ratio Glucose Lactate Calcium Magnesium Ferritin Total Bilirubin AST ALT Alkaline Phosphatase Total Creatine Kinase CK-MB (CK-2) CK-MB (CK-2) Rel Index Troponin I C-Reactive Protein NT-Pro-B Natriuret Pep Total Protein Albumin Globulin Albumin/Globulin Ratio Procalcitonin Prolactin Urine Color Urine Appearance Urine pH Ur Specific Mcbh [place] Urine Protein Urine Glucose (UA) Urine Ketones Urine Occult Blood Urine Nitrate Urine Bilirubin Urine Urobilinogen Ur Leukocyte Esterase Urine RBC Urine WBC Ur Squamous Epith Cells Amorphous Sediment Urine Bacteria Ur Culture Indicated? Stl C. cayetanensis PCR Not detected Stool Rotavirus (PCR) Not detected Stool Adenovirus (PCR) Not detected Stool Astrovirus (PCR) Not detected Stool Cryptosporidium PCR Not detected Stl E.coli Shiga Tox PCR Not detected St Sh/Enteroin Ecoli PCR Not detected Stool E coli O157 PCR Not Reportable Stl Enterotoxigenic E PCR Not detected Stool EPEC (PCR) Detected H Stl E. histolytica PCR Not detected Stool Giardia Lamblia PCR Not detected Stool Sapovirus (PCR) Not detected Stl P. shigelloides PCR Not detected St Y.enterocolitica PCR Not detected Stool Vibrio (PCR) Not detected Stl Vibrio cholerae PCR Not detected Stl Enteroaggr Ecoli PCR Not detected Stl Norovirus GI/GII PCR Not detected U Opiates 300ng/mL cut Ur Oxycodone Screen Urine Methadone Screen Ur Barbiturates Screen U Tricyclic Antidepress Ur Phencyclidine Scrn Ur Amphetamines Screen U Methamphetamines Scrn Ur MDMA Scrn (Ecstasy) U Benzodiazepines Scrn Urine Cocaine Screen U Marijuana (THC) Screen Ethyl Alcohol < 10 Campylobacter (PCR) Not detected C. difficile Tox (PCR) Not detected COVID-19 PCR Cancelled Salmonella (PCR) Not detected 01/20/20 01/20/20 01/20/20 20:18 20:18 20:30 WBC RBC Hgb Hct MCV MCH MCHC RDW Plt Count Neut % (Auto) Lymph % (Auto) [place] % (Auto) Eos % (Auto) Baso % (Auto) Neut # (Auto) Lymph # (Auto) [place] # (Auto) Eos # (Auto) Baso # (Auto) PT INR APTT Sodium Potassium Chloride Carbon Dioxide BUN Creatinine Estimated GFR BUN/Creatinine Ratio Glucose Lactate Calcium Magnesium Ferritin Total Bilirubin AST ALT Alkaline Phosphatase Total Creatine Kinase CK-MB (CK-2) CK-MB (CK-2) Rel Index Troponin I C-Reactive Protein NT-Pro-B Natriuret Pep Total Protein Albumin Globulin Albumin/Globulin Ratio Procalcitonin Prolactin Urine Color Brown Urine Appearance Cloudy Urine pH 5.0 Ur Specific Mcbh [place] 1.025 Urine Protein 2+ H Urine Glucose (UA) Negative Urine Ketones 1+ H Urine Occult Blood 3+ H Urine Nitrate Negative Urine Bilirubin Negative Urine Urobilinogen 1.0 Ur Leukocyte Esterase Negative Urine RBC >100/hpf Urine WBC 0-1/hpf Ur Squamous Epith Cells 0-1 /hpf Amorphous Sediment 1+ Urine Bacteria Occasional (0-1) Ur Culture Indicated? Cult not indicated Stl C. cayetanensis PCR Stool Rotavirus (PCR) Stool Adenovirus (PCR) Stool Astrovirus (PCR) Stool Cryptosporidium PCR Stl E.coli Shiga Tox PCR St Sh/Enteroin Ecoli PCR Stool E coli O157 PCR Stl Enterotoxigenic E PCR Stool EPEC (PCR) Stl E. histolytica PCR Stool Giardia Lamblia PCR Stool Sapovirus (PCR) Stl P. shigelloides PCR St Y.enterocolitica PCR Stool Vibrio (PCR) Stl Vibrio cholerae PCR Stl Enteroaggr Ecoli PCR Stl Norovirus GI/GII PCR U Opiates 300ng/mL cut Negative Ur Oxycodone Screen Negative Urine Methadone Screen Negative Ur Barbiturates Screen Negative U Tricyclic Antidepress Negative Ur Phencyclidine Scrn Negative Ur Amphetamines Screen Negative U Methamphetamines Scrn Negative Ur MDMA Scrn (Ecstasy) Negative U Benzodiazepines Scrn Negative Urine Cocaine Screen Negative U Marijuana (THC) Screen Negative Ethyl Alcohol Campylobacter (PCR) C. difficile Tox (PCR) COVID-19 PCR Negative Salmonella (PCR) 01/20/20 01/21/20 01/21/20 20:39 04:39 04:39 WBC 5.9 RBC 3.96 L Hgb 12.2 L Hct 34.9 L MCV 88.2 MCH 30.7 MCHC 34.8 RDW 14.8 Plt Count 247 Neut % (Auto) 58.7 Lymph % (Auto) 29.9 [place] % (Auto) 10.4 Eos % (Auto) 0.6 L Baso % (Auto) 0.4 Neut # (Auto) 3500 Lymph # (Auto) 1800 [place] # (Auto) 600 Eos # (Auto) 0 Baso # (Auto) 0 PT INR APTT Sodium 134 L Potassium 4.4 Chloride 103 Carbon Dioxide 27 BUN 24 H Creatinine 0.98 Estimated GFR > 60.0 BUN/Creatinine Ratio 24.5 H Glucose 94 D Lactate 1.7 Calcium 8.7 Magnesium 2.0 Ferritin Total Bilirubin AST ALT Alkaline Phosphatase Total Creatine Kinase CK-MB (CK-2) CK-MB (CK-2) Rel Index Troponin I C-Reactive Protein NT-Pro-B Natriuret Pep Total Protein Albumin Globulin Albumin/Globulin Ratio Procalcitonin Prolactin Urine Color Urine Appearance Urine pH Ur Specific Mcbh [place] Urine Protein Urine Glucose (UA) Urine Ketones Urine Occult Blood Urine Nitrate Urine Bilirubin Urine Urobilinogen Ur Leukocyte Esterase Urine RBC Urine WBC Ur Squamous Epith Cells Amorphous Sediment Urine Bacteria Ur Culture Indicated? Stl C. cayetanensis PCR Stool Rotavirus (PCR) Stool Adenovirus (PCR) Stool Astrovirus (PCR) Stool Cryptosporidium PCR Stl E.coli Shiga Tox PCR St Sh/Enteroin Ecoli PCR Stool E coli O157 PCR Stl Enterotoxigenic E PCR Stool EPEC (PCR) Stl E. histolytica PCR Stool Giardia Lamblia PCR Stool Sapovirus (PCR) Stl P. shigelloides PCR St Y.enterocolitica PCR Stool Vibrio (PCR) Stl Vibrio cholerae PCR Stl Enteroaggr Ecoli PCR Stl Norovirus GI/GII PCR U Opiates 300ng/mL cut Ur Oxycodone Screen Urine Methadone Screen Ur Barbiturates Screen U Tricyclic Antidepress Ur Phencyclidine Scrn Ur Amphetamines Screen U Methamphetamines Scrn Ur MDMA Scrn (Ecstasy) U Benzodiazepines Scrn Urine Cocaine Screen U Marijuana (THC) Screen Ethyl Alcohol Campylobacter (PCR) C. difficile Tox (PCR) COVID-19 PCR Salmonella (PCR) Assessment & Plan Assessment & Plan narrative: 79 y/o male found down at home -Admitted with Acute Renal Failure, likely secondary to dehydration -will check renal ultrasound to r/o obstruction -Continue IV hydration and recheck labs -Diarrhea likely contributed -Stool growing E.COLI, no evidence of HUS, so will treat symptomatically, no antidiarrhea's at this time Recent ESBL UTI -will repeat U/A Severe Protein Calorie Malnutrition -Dietary Consult -ensure PT/OT...Needs placement Quality VTE Deep Vein Thrombosis/Pulmonary Embolism Present on Admission: No
--- NOTE | 2020-01-21 14:24 | DI.US.S_ITS ---
PROCEDURE: US RENAL COMPLETE INDICATIONS: ACUTE RENAL FAILURE TECHNIQUE: Real-time scanning was performed of the kidneys and bladder, with image documentation. COMPARISON: None. FINDINGS: Kidneys: Kidneys are normal in size. Right kidney measures 8.3 cm long; left kidney measures 9 cm long. Right renal cortical thickness is 1.6 cm; left renal cortical thickness is 2 cm. Renal cortical echotexture is normal. No hydronephrosis or nephrolithiasis. No suspicious solid mass lesions. Bladder: Pre-void bladder volume is 161 mL. No gross bladder wall abnormality is seen. Bilateral ureteral jets are noted. Miscellaneous: No free pelvic fluid. Incidentally noted enlarged prostate gland measures 4.3 x 3.7 cm in size with mild mass effect on fluoroscopy the bladder. IMPRESSION: 1. No gross abnormality is seen in lateral kidneys or urinary bladder. 2. Mildly enlarged prostate gland with mild mass effect of floor of urinary bladder. Dictated by: Aníbal Beltran M.D. on 01/21/2020 at 15:26 Approved by: Aníbal Beltran M.D. on 01/21/2020 at 15:29
--- NOTE | 2020-01-21 15:44 | CM.DPNOTE ---
Addendum entered by Raysa Celestin R.N. 01/21/20 16:23: CM/RN called [facility] and February is reviewing for possible admission for SNF. Faxed Clinicals to [facility] for them to review for possible admission. [facility] and [facility] do not have any male beds available. Raysa Celestin RN Original Note: DCP assessment: EMR reviewed: Patient is a 79 yr old male who was admitted for malnutrition, TATIANA and Dehydration. Patient has Dementia and lives on [facility] with his guardian _Cole Benjamin. CM/RN attempted to meet with patient at the bedside. Patient is hard of hearing and was alert but not oriented at time of CM/RN visit. CM/RN called Cole Benjamin, Patients guardian. He was updated about patients condition. CM/Rn let him know PT is recommending senior care facility for patient at D/C. Cole agreed. Patient has a negative Covid-19 test from 01/20/2020. Once patient D/C from the SNF he will go home with his Guardian back to [facility]. I: Medicare and medicaid Plan: Gio gómez was gone for a week with his prior to patient getting sicK but plans on bringing patient home and being with patient once he D/C from the SNF. PT Recommends SNF. CM will attempt to find placement for patient. PASRR complete. Raysa Celestin RN Discharge Planning/Care Management CM Discharge Assessment Start: 01/21/20 15:39 Freq: Status: Active Protocol: Document 01/21/20 15:40 HS (Rec: 01/21/20 15:44 HS [id number]) Discharge Planning Assessment Assigned Policy Manager Raysa Celestin RN DPOA/Assigned Designee Name Cole Benjamin (rico) Contact Information [phone] Advance Directives? No History Provided By Patient,Family Member,Medical Record Has Patient been admitted in last 30 No days? Prior Living Arrangements House Comment Lives with Cole Benjamin - guardian- on [facility] Household Members family Type of transporation used prior to Relies on Others admit Independent with ADL's Yes: Patient is Independent at base line Is patient alert and oriented? No Caregiver for Another No DME Already Rented / Owned Elevated Toilet Seat Comment . Patient/Family Preference Longterm Facility Comment CM/RN spoke with patient and patients guardian and the plan is to D/C to a SNF. Barriers to Discharge Yes Comment Need an accepting facility. Discharge Plan Longterm Facility Referrals Initiated Medicaid Application,Other Additional Comment Resources for cargiving and [employer] application. Also given Senior Resource Guide. If patient plan is SNF: Has PASSR been Yes completed? Medicare Choice List Provided Yes SNF/HH Preference [facility] is preferred choice - Contact Name/Phone june- [phone] Has Agency SNF been contacted Yes Whiteboard Updated in Patient Room with Yes name and ext. # of Policy Manager Review Status In Process Next Review Type Continued Stay Review
--- NOTE | 2020-01-21 16:40 | OT.IP.EVAL ---
Past Medical History (Last Reviewed 01/21/20 @ 02:30 by KOLTON Perry) Malnutrition (Chronic 02/21/16) Personal history of stroke with current residual effects (Chronic ~01/2019) Postherpetic neuralgia (Chronic) Occupational Therapy Inpatient Evaluation/Re-Eval M1 PT/OT-IP Prior Functional Status Start: 01/21/20 17:36 Freq: NEEDED Status: Active Protocol: Document 01/21/20 16:40 [facility] (Rec: 01/21/20 17:53 [facility] [id number]) Medical Review Prior Functional Status Medical History Reviewed Yes Diet/Fluid Consistency Regular Communication COUNCIL, better hearing on R side Mobility and Gait pt typically indep without AD and walks around on property Activities of Daily Living and IADL's Indep with ADLS typically, reports he cooks and cleans. Social History Household Members family Living Arrangements House Number of Stairs To Enter/Railing? 3 [place] with right rail Home Environment Standard Height Toilet,Walk in Shower Home Equipment Grab Bars In Shower Additional Social History Comment lives with FOZIA on [address], FOZIA reports pt has been falling a lot over the past few weeks. M2 OT-IP Current Condition Start: 01/21/20 17:36 Freq: Status: Active Protocol: Document 01/21/20 16:40 [facility] (Rec: 01/21/20 17:53 [facility] [id number]) Occupational Therapy Current Condition Current Condition Evaluation Date 01/21/20 Treatment Diagnosis Malnutrition, renal failure due to dehydration Diagnosis Onset Date 01/20/20 Weight Bearing Status Weight Bearing Status Weight Bear as Tolerated M3 OT- IP Subjective and Pain Start: 01/21/20 17:36 Freq: Status: Active Protocol: Document 01/21/20 16:40 [facility] (Rec: 01/21/20 17:53 [facility] [id number]) OT- Subjective Occupational Therapy Visit Type Type Initial Evaluation Visit Start Time 16:40 Visit Stop Time 17:29 Total Visit Minutes 49 Occupational Therapy Visit Comments Patient Comments Pt cooperative but very hard of hearing. Patient/Caregiver Goals To get stronger to be able to care for himself. OT Pain Assessment Pain When Pain Assessed At Rest Pain Present Pain Present Denied Pain M4 OT- IP ADL's Start: 01/21/20 17:36 Freq: Status: Active Protocol: Document 01/21/20 16:40 [facility] (Rec: 01/21/20 17:53 [facility] [id number]) OT [id number] General Evaluation Self-Feeding Ability Independent OT ADL-Grooming Comments OT Grooming Comments Pt not wanting to perform any grooming at this time. Noted has very long nails that look like they have not been cared for in awhile. OT ADL-Oral Care Comments Oral Care Comments Pt refused at this time. OT ADL-Dressing Comments OT Dressing Comments Not able to perform. OT ADL-Toileting Comments OT Toileting Comments Pt not needing to go at this time. OT ADL-Bathing Comments OT Bathing Comments Not at this time. M5 OT- IP IADL's Start: 01/21/20 17:36 Freq: Status: Active Protocol: Document 01/21/20 16:40 [facility] (Rec: 01/21/20 17:53 [facility] [id number]) OT-Instrumental Activities of Daily Living Home Safety Awareness Home Safety Comments At this time due to pt's poor short term memory , would be beneficial for pt to have assist for all ADl and IADl needs. M6 OT- IP Functional Cognition Start: 01/21/20 17:36 Freq: Status: Active Protocol: Document 01/21/20 16:40 [facility] (Rec: 01/21/20 17:53 [facility] [id number]) Cognitive Factors Limiting Selfcare Function Cognitive Ability Level of Alertness Alert Patient Orientation Name,Place,Situation Attention Span Ability Capable of Focused Attention, Capable of Sustained Attention Ability to Follow Commands Able to Follow One Step Commands Memory Description Short Term Impaired,Working Impaired Safety Awareness Underestimates Need for Assistance Problem Solving Ability Unable to Identify Errors, Needs Assist to Identify Solutions Executive Function Ability Unable to Make Plans,Unable to Organize Plans,Unable to Remember Details Cognitive Tests SLUMS Pt scored 9/30 , normal score for pt would be 25/30 as pt has an 8th grade level of education. Pt's low score may also be influenced pt being very hard of hearing, and here in the hospital due to malnutrition and dehydration. To continue to assess pt as he progresses medically. Cognitive Comments Cognitive Assessment Comments Pt able to follow one step commands. pt a bit impulsive and partially due to very hard of hearing. OT- Vision and Hearing OT- Hearing Assessment OT- Hearing Assessment Hearing Impaired M7 OT- IP Mobility and Balance Start: 01/21/20 17:36 Freq: Status: Active Protocol: Document 01/21/20 16:40 [facility] (Rec: 01/21/20 17:53 [facility] [id number]) OT- Bed Mobility Assessment Supine to Sit Supine to Sit Assist Standby Assistance OT-Transfer Assessment Sit to and From Stand Sit to and from Stand Contact Guard Assistance Transfers Transfer Ability Moderate Assistance Technique Transfer Destination Bed,Chair Comments Mobility Comments Pt coming to stand prior to being able to get gait belt on as pt has trouble hearing. CGA to stand from bed and YOSELIN to medical billing clerk place. Transferring to the recliner needing MODA for balance as very unsteady on his feet and would have benefited from a device to use. However prior pt states did not use a device for any ambulation needs. OT- Balance Assessment Sitting Balance and Reactions Static Sitting Balance Ability Good Standing Balance and Reactions Static Standing Balance Ability Poor M8 OT- IP Objective Assessments Start: 01/21/20 17:36 Freq: Status: Active Protocol: Document 01/21/20 16:40 [facility] (Rec: 01/21/20 17:53 [facility] [id number]) OT Gross Range of Motion Upper Extremity Range of Motion Assessment Within Functional Limits ROM Impairments BUE 0-110 shoulder WFL for pt' s needs. OT Strength Comments Strength Comments BUE from proximal to distal 4/ 5 to 4-/5. M9 OT- IP Assessment and Plan Start: 01/21/20 17:36 Freq: Status: Active Protocol: Document 01/21/20 16:40 [facility] (Rec: 01/21/20 17:53 [facility] [id number]) OT Summary Assessment and Plan Potential Rehabilitation Potential Good Analytic Complexity at Evaluation Low Summary OT Impairments Strength,Balance,Functional Cognition,Functional Mobility, Grooming,Dressing,Toileting, Bathing,Toilet Transfers, Shower Transfers,Activity Tolerance Progress Towards Goals Slow Progress due to Medical Issues,Slow Progress due to Activity Tolerance,Slow Progress due to Cognition Assessment Summary Pt low complexity and barriers include decreased overall strength, balance, and now needing one person assist for all needs. Pt having short term memory deficits and scored 9/30 on the SLUMS at this time, to re-test or provide another test later as pt very hard of hearing and see how pt does as he becomes more medically stable. Pt is very cooperative and pleasant. Pt would benefit from skilled rehab to help get pt back to prior level of being independent for all ADl's and functional mobility needs. Goals Grooming Goal Independent Dressing Goal Independent Toileting Goal Independent Bathing Goal Independent Toilet Transfer Goal Independent Shower Transfer Goal Independent Days to Meet Goals 15 Frequency of Treatment Frequency Of Treatment Once a Day Treatment Plan OT Treatment Plan ADL Training,Functional Cognition Training,Functional Mobility,Patient/Family Education,Discharge Planning Other Treatment Recommendations and Next Stand at sink for grooming Treatment Focus needs. Discharge Recommendations OT Discharge Recommendations SNF Rehab Home Equipment Needs defer to SNF Transportation Needs at Discharge Private Vehicle,Wheelchair/ Cabulance
--- NOTE | 2020-01-21 19:04 | PC.NURSE ---
Addendum entered by Nereida Childers R.N. 01/21/20 22:44: 2230 - Pt able to stand at bed side and void per urinal. States that he is feeling cranky. However is calm and cooperative during care. Pt able to talk about the home he built and his cat. Reports not liking current living situation with Cole. I am happier here right now than I am living there with him. Discussed treatment plan and increasing activity tolerance. Reinforced safety and call light use. Bed alarm on. Addendum entered by Nereida Childers R.N. 01/21/20 21:27: 2100 - To more occasions offered shower/bed bath today. Pt refused. Resting in bed. Mostly sleeping. Denies pain. Bed alarm on. Original Note: 1899 - Pt sat up in chair for meal. Good PO intake. Push call light requesting to return to bed. Assist with gait belt and fww back to bed. Reinforced safety and walker use. Denies urge to void, brief dry. Encourage pt to shower following rest period. Pt states how can I refuse? Warm blanket provided. Call light in reach. Bed alarm on.
[2020-01-22] VITALS (9 sets, daily range): BP systolic 138–170; BP diastolic 61–78; PULSE 45–83; RESP 18–21; TEMP 35.7–37; O2SAT 94–99
[2020-01-22 05:22] LABS: Alanine Aminotransferase 10 IU/L (<50); Albumin 2.9 g/dL (3.5-5.0); Albumin Globulin Ratio 0.9 (1.0-2.8); Alkaline Phosphatase 70 U/L (38-126); Aspartate Aminotransferase 21 IU/L (17-59); BUN Creatinine Ratio 22.9 (6-22); Bilirubin Total 0.1 mg/dL (0.2-1.3); Blood Urea Nitrogen 19 mg/dL (9-20); Calcium 8.4 mg/dL (8.4-10.2); Carbon Dioxide 27 mmol/L (22-32); Chloride 105 mmol/L (98-107); Estimated Glomerular Filt Rate > 60.0 mL/min (>60); Globulin 3.1 g/dL (1.7-4.1); Glucose 93 mg/dL (80-110); HEMOLYSIS < 15 (0-50); Potassium 4.5 mmol/L (3.4-5.1); Sodium 137 mmol/L (137-145)
[2020-01-22 05:34] LABS: Add Manual Diff / Slide Review NO; Basophils Absolute Auto 0 /uL (0-100); Basophils Percent Auto 0.7 % (0-2); Eosinophils Absolute Auto 100 /uL (0-450); Hematocrit 33.7 % (41-53); Hemoglobin 11.6 g/dL (13.5-17.5); Lymphocytes Absolute Auto 1800 /uL (1100-4500); Lymphocytes Percent Auto 32.8 % (25-40); Mean Corpuscular HGB Conc 34.3 % (30-36); Mean Corpuscular Hemoglobin 30.5 PG (26-34); Mean Corpuscular Volume 88.9 fL (80-100); Monocytes Absolute Auto 400 /uL (0-900); Monocytes Percent Auto 7.9 % (3-14); Neutrophils Absolute Auto 3100 /uL (1500-7000); Neutrophils Percent Auto 57.6 % (50-75); Platelet Count 239 X10^3/uL (150-400); Red Blood Cell Count 3.79 X10^6/uL (4.5-5.9); Red Cell Distribution Width 14.6 % (11.6-14.8); White Blood Cell Count 5.4 X10^3/uL (4.5-11.0)
--- NOTE | 2020-01-22 05:48 | PC.NURSE ---
Pt. is alert, oriented and appropriate. VSS, afebrile, RA sats 98% but HR is sinus eyad, diminished lungs sounds but CTA. Voiding using the urinal. Ate 1/2 of egg salad sandwich and drinking juice and water without issues. Continue to treat and monitor.
[2020-01-22] MEDS: SODIUM CHLORIDE 0.9% 1,000 ML 100 ML IV (09:23)
--- NOTE | 2020-01-22 11:47 | PM.PN.1 ---
Subjective Subjective Date Patient Seen: 01/22/20 Interval history: The patient is a 79-year-old male who was admitted to the hospital as he was found down and dehydrated. The patient had acute renal failure which has improved. He cannot recall what happened at home. He had some diarrhea. He is growing entero toxigenic E coli. He is now wake and alert and has no specific complaints. Patient states he does fall a lot. By report he has a is slums score of 16/30. Patient has known progressive dementia as well. Exam Vital Signs (past 8 hours): - 01/22/20 05:00 01/22/20 08:00 01/22/20 08:15 Temperature 97.8 F 98.6 F Pulse Rate 57 L 45 L Respiratory Rate 19 21 Blood Pressure 138/66 148/61 H Pulse Oximetry 98 98 98 Oxygen Delivery Method Room Air Oxygen Flow Rate 0 Narrative Exam Narrative: Pleasant elderly male in no obvious distress, patient is quite emaciated Lungs: Clear to auscultation Cardiac exam: Regular rate and rhythm normal S1-S2 Abdomen: Soft nontender nondistended Extremities: No edema Objective Labs Result Diagrams: 01/22/20 04:40 01/22/20 04:40 Labs: Laboratory Results - last 24 hr 01/22/20 01/22/20 01/22/20 03:00 04:40 04:40 WBC 5.4 RBC 3.79 L Hgb 11.6 L Hct 33.7 L MCV 88.9 MCH 30.5 MCHC 34.3 RDW 14.6 Plt Count 239 Neut % (Auto) 57.6 Lymph % (Auto) 32.8 [place] % (Auto) 7.9 Eos % (Auto) 1.0 L Baso % (Auto) 0.7 Neut # (Auto) 3100 Lymph # (Auto) 1800 [place] # (Auto) 400 Eos # (Auto) 100 Baso # (Auto) 0 Sodium 137 Potassium 4.5 Chloride 105 Carbon Dioxide 27 BUN 19 Creatinine 0.83 Estimated GFR > 60.0 BUN/Creatinine Ratio 22.9 H Glucose 93 Calcium 8.4 Total Bilirubin 0.1 L AST 21 ALT 10 Alkaline Phosphatase 70 Total Protein 6.0 L Albumin 2.9 L Globulin 3.1 Albumin/Globulin Ratio 0.9 L Nasal Screen MRSA (PCR) Negative for mrsa Assessment & Plan Assessment & Plan narrative: 1. 79-year-old male admitted to the hospital with failure to thrive -patient presented with acute renal failure -renal ultrasound shows no hydronephrosis, however there is enlarged prostate with some bladder obstruction, minimal -IV hydration has improved renal function and it is now normal 2. Severe protein calorie malnutrition -dietary consult obtained 3. Weakness with frequent fall Plan -continue PT OT -continue dietary consultation -Hep-Lock IV fluids -[facility]2 days Quality VTE Deep Vein Thrombosis/Pulmonary Embolism Present on Admission: No
--- NOTE | 2020-01-22 12:23 | DIET.PN ---
Dietary Progress Note RD f/u pt requesting alternate to ONS Ensure Enlive as he does not like the taste. Pt requesting whole milk c meals instead. Note: whole milk contains half the kcals and PRO of Enlive, however, pt consuming ~100% meal trays. Clinical Operations Specialist working c pt on acceptable way to increase PRO and kcals on trays. As pt unlikely to consume ONS drinks once discharged, pt remains high risk for ongoing PCM r/t social/environmental factors (lives alone) as well as his progressive dementia. Assessment: 79y M c progressive dementia admitted for severe dehydration, PCM, adult FTT, and hx of CVA referred to nutrition for malnutrition assessment and low Tobias score. HT: 170.1cm WT: 45.3 UBW: 51kg BMI: 15.7 (severe for age) Labs: admit BUN 24 H, admit eGFR 46.2 L MNA: 8 at risk for malnutrition Tobias: 14 high risk for skin breakdown Nutrition Diagnosis: Chronic Severe PCM r/t physical and psychological causes (lives alone, severe progressive dementia) aeb 12% unintentional wt loss in 6mo (severe), BMI 15.7 (severe), severe global fat and muscle wasting apparent in temples, deltoid, clavicle, femur, pt admitted c TATIANA secondary to dehydration. Interventions: 1. Recc ONS Ensure Enlive tid in addition to meal trays to provide 75% kcal and 100% pro needs to support skin integrity and weight gain. Diet Order: General EER: 1500kcal, 60g PRO (1.3g/kg per maln), 1.5L fluids Monitoring/Evaluations: POs
--- NOTE | 2020-01-22 12:35 | OT.IP.TRT ---
Current Diagnoses Acute kidney failure, unspecified (01/20/20) Occupational Therapy Treatment Note M2 OT-IP Current Condition Start: 01/21/20 17:36 Freq: Status: Active Protocol: Document 01/21/20 16:40 [facility] (Rec: 01/21/20 17:53 [facility] [id number]) Occupational Therapy Current Condition Current Condition Evaluation Date 01/21/20 Treatment Diagnosis Malnutrition, renal failure due to dehydration Diagnosis Onset Date 01/20/20 Weight Bearing Status Weight Bearing Status Weight Bear as Tolerated M3 OT- IP Subjective and Pain Start: 01/21/20 17:36 Freq: Status: Active Protocol: Document 01/22/20 12:13 [facility] (Rec: 01/22/20 12:34 [facility] [id number]) OT- Subjective Occupational Therapy Visit Type Type Treatment Note Visit Start Time 11:40 Visit Stop Time 12:11 Total Visit Minutes 31 Occupational Therapy Visit Comments Patient Comments Pt wanting to use the urinal and then agreeable to do grooming while standing at the sink with FWW. Patient/Caregiver Goals To get stronger to be able to care for himself. OT Pain Assessment Pain When Pain Assessed At Rest Pain Present Pain Present Denied Pain M4 OT- IP ADL's Start: 01/21/20 17:36 Freq: Status: Active Protocol: Document 01/22/20 12:13 [facility] (Rec: 01/22/20 12:34 [facility] [id number]) OT LPN-Psby-[place] General Evaluation Self-Feeding Ability Independent OT ADL-Grooming General Evaluation Grooming Ability Independent Comments OT Grooming Comments SBA with FWW, one loss of balance and needing CGA to keep from falling. Increased time to open packages for grooming needs. OT ADL-Oral Care General Eval Oral Care Ability Independent OT ADL-Dressing Comments OT Dressing Comments Not able to perform. OT ADL-Toileting General Evaluation Toileting Ability Standby Assistance Devices Toileting Assistive Devices Urinal Comments OT Toileting Comments clsoe SBA while standing. OT ADL-Bathing Comments OT Bathing Comments Not at this time. M6 OT- IP Functional Cognition Start: 01/21/20 17:36 Freq: Status: Active Protocol: Document 01/22/20 12:13 [facility] (Rec: 01/22/20 12:34 [facility] [id number]) Cognitive Factors Limiting Selfcare Function Cognitive Ability Level of Alertness Alert Patient Orientation Name,Place,Situation Attention Span Ability Capable of Focused Attention, Capable of Sustained Attention Ability to Follow Commands Able to Follow One Step Commands Memory Description Short Term Impaired Executive Function Ability Unable to Remember Details Cognitive Comments Cognitive Assessment Comments Pt able to sequence through grooming and toileting task however needing reminders how to use the automatic sink. Pt more alert and not as hard of hearing as yesterday. Pt needing reminders to use the FWW to assist to walk back from the sink. OT- Vision and Hearing OT- Hearing Assessment OT- Hearing Assessment Hearing Impaired M7 OT- IP Mobility and Balance Start: 01/21/20 17:36 Freq: Status: Active Protocol: Document 01/22/20 12:13 [facility] (Rec: 01/22/20 12:34 [facility] [id number]) OT- Bed Mobility Assessment Supine to Sit Supine to Sit Assist Standby Assistance OT-Transfer Assessment Sit to and From Stand Sit to and from Stand Contact Guard Assistance Transfers Transfer Ability Contact Guard Assistance Technique Transfer Destination Bed,Chair Devices Transfer Assistive Devices Gait Belt,Front Wheeled Walker Comments Mobility Comments Pt much steadier with FWW for balance and able to walk with CGA today to the sink and back . OT- Balance Assessment Sitting Balance and Reactions Static Sitting Balance Ability Normal Dynamic Sitting Balance Ability Good Standing Balance and Reactions Static Standing Balance Ability Fair M8 OT- IP Objective Assessments Start: 01/21/20 17:36 Freq: Status: Active Protocol: Document 01/21/20 16:40 [facility] (Rec: 01/21/20 17:53 [facility] [id number]) OT Gross Range of Motion Upper Extremity Range of Motion Assessment Within Functional Limits ROM Impairments BUE 0-110 shoulder WFL for pt' s needs. OT Strength Comments Strength Comments BUE from proximal to distal 4/ 5 to 4-/5. M9 OT- IP Assessment and Plan Start: 01/21/20 17:36 Freq: Status: Active Protocol: Document 01/22/20 12:13 [facility] (Rec: 01/22/20 12:34 [facility] [id number]) OT Summary Assessment and Plan Potential Rehabilitation Potential Good Analytic Complexity at Evaluation Low Summary OT Impairments Strength,Balance,Functional Cognition,Functional Mobility, Grooming,Dressing,Toileting, Bathing,Toilet Transfers, Shower Transfers,Activity Tolerance Progress Towards Goals Slow Progress due to Pain,Slow Progress due to Activity Tolerance,Slow Progress due to Cognition Assessment Summary Pt able to tolerate standing with FWW for grooming needs and noted improved balance. Pt would continue to benefit from skilled rehab as not at baseline level. OT to try showering/dressing needs tomorrow and reassess cognitive needs. Goals Grooming Goal Independent Dressing Goal Independent Toileting Goal Independent Bathing Goal Independent Toilet Transfer Goal Independent Shower Transfer Goal Independent Days to Meet Goals 10 Treatment Plan OT Treatment Plan ADL Training,Functional Cognition Training,Functional Mobility,Patient/Family Education,Discharge Planning Other Treatment Recommendations and Next Shower, reassess cognition Treatment Focus Discharge Recommendations OT Discharge Recommendations SNF Rehab Home Equipment Needs defer to SNF Transportation Needs at Discharge Private Vehicle
--- NOTE | 2020-01-22 14:49 | PT.IPTN ---
Current Diagnoses Acute kidney failure, unspecified (01/20/20) Physical Therapy Treatment Note M2 PT-IP Current Condition Start: 01/21/20 12:47 Freq: NEEDED Status: Active Protocol: Document 01/21/20 11:08 [facility] (Rec: 01/21/20 13:17 [facility] [id number]) Physical Therapy Current Condition Current Condition Evaluation Date 01/21/20 Treatment Diagnosis failure to thrive, weakness M3 PT-IP Subjective Start: 01/21/20 12:47 Freq: NEEDED Status: Active Protocol: Document 01/22/20 14:15 [facility] (Rec: 01/22/20 15:11 [facility] [email or web address]) Subjective Physical Therapy Visit Type Type Treatment Note Visit Start Time 14:15 Visit Stop Time 14:49 Total Visit Minutes 34 Number of DRAFTER CIVIL Visits 1 Physical Therapy Visit Comments Patient Comments Pt agreeable to work w/ therapy. M4 PT-IP Mobility and Gait Start: 01/21/20 12:47 Freq: NEEDED Status: Active Protocol: Document 01/22/20 14:15 [facility] (Rec: 01/22/20 15:11 [facility] [email or web address]) PT-Bed Mobility Assessment Supine to Sit Supine to Sit Contact Guard Assistance,Head of Bed Elevated Scooting Scooting to Edge of Bed Contact Guard Assistance PT-Transfer Assessment Sit to and From Stand Sit to and from Stand Contact Guard Assistance, Minimal Assistance,1 Person Assistance,Use of Upper Extremities Equipment Transfer Assistive Device Gait Belt,Front Wheeled Walker Orthotic/Prosthetic Devices or Brace: No Transfers Transfer Destination Chair Transfer Technique PT ambulated w/ FWW Transfer Ability Level of Assist Contact Guard Assistance, Minimal Assistance,1 Person Assistance,Use of Upper Extremities Comments Mobility Comments Pt in bed upon arrival from therapy. Pt instructed in and performed 1x10 bilateral ankle pumps and quad sets and 1x5 bilateral heel slides. Pt then sup<>sit and scooted to edge of bed CGA w/ HOB slightly elevated. Once EOB, pt was able to maintain seated balance. Pt then sit<>stand from EOB w/ FWW x7 w/ Min A on first STS and CGA for remaining STS. On 6th STS pt performed weight shifting for ~30 seconds before sitting again and on 7th STS pt marched in place ~2 min and then ambulated ~35 ft around room w/ FWW and CGA. Pt demonstrated good use of FWW and required no cues for FWW mgmt or hand placement when stand<>sit in chair. Pt has decreased foot clearance and stride length and slow speed while ambulating d/t decreased tolerance for activity and weakness. Pt left comfortably in chair w/ all needs in reach . Gait Assessment Gait Gait Assistance Required: Contact Guard Assist Distance (Feet) 35 Able to Maintain Weight Bearing Status Yes During Gait Assistive Devices Assistive Device Gait Belt,Front Wheeled Walker Gait Deviations General Gait Pattern Decreased Stride Length, Decreased Feet Clearance, Flexed Trunk Factors Limiting Gait Function Factors Limiting Gait Function Decreased Activity Tolerance, Decreased Strength,Poor Balance,Poor Safety Awareness Comments Gait Comments Please refer to mobility section for details. PT-Balance Assessment Sitting Balance and Reactions Static Sitting Balance Ability Good Dynamic Sitting Balance Ability Good Standing Balance and Reactions Static Standing Balance Ability Fair Dynamic Standing Balance Ability Fair Device Used FWW M5 PT-IP Objective Assessments Start: 01/21/20 12:47 Freq: NEEDED Status: Active Protocol: Document 01/21/20 11:08 [facility] (Rec: 01/21/20 13:17 [facility] [id number]) Orientation Orientation/Cognition Level of Alertness Confusional State Language Function Ability Hard of Hearing Safety Awareness Decreased Safety Awareness Strength Lower Extremity Strength Assessment Bilaterally Impaired Comments Strength Comments grossly 3+/5 LE strength M6 PT-IP Treatment Start: 01/21/20 12:47 Freq: NEEDED Status: Active Protocol: Document 01/22/20 14:15 [facility] (Rec: 01/22/20 15:11 [facility] [email or web address]) Physical Therapy Treatment Exercises Exercises Ankle Pumps,Quad Sets,Heel Slides Education Education Provided Safety Other Treatments Other Treatment Performed 7x sit<>stand 30 sec weight shifting [address] M7 PT-IP Assessment and Plan Start: 01/21/20 12:47 Freq: NEEDED Status: Active Protocol: Document 01/22/20 14:15 [facility] (Rec: 01/22/20 15:11 [facility] [email or web address]) PT Summary Assessment and Plan Potential Rehabilitation Potential Good Status of Condition at Evaluation Evolving Summary Impairments Strength,Balance,Bed Mobility, Transfers,Gait,Activity Tolerance Assessment Summary Matthew is showing improvements w/ bed mobility and transfers today and was able to complete LE strengthening, sit<>stands , weight shifting, and marching in place prior to ambulating 35 ft w/ FWW and CGA. He demonstrated good use of FWW and did not require cues for hand placement or sequencing when using FWW to sit<>stand<>sit. He ambulated and performed exercises at a very slow pace and had decreased stride and foot clearance d/t weakness and decreased tolerance for activity. Pt will benefit from continued skilled therapy to assess strength and balance deficits. Goals Bed Mobility Goal Standby Assistance Transfer Goal Contact Guard Assistance Gait Goal Contact Guard Assistance Gait Distance 200ft Other Goals up/down 3 stairs iwth rail CGA Days to Meet Goals 5 Frequency of Treatment Frequency Of Treatment Once a Day Treatment Plan Other Recommendations and Next Treatment work on gait, sit to stands, Focus balance, try cane instead of walker to see if safer Recommendations To Nursing Amount of Assist Needed 1 Person Assist Discharge Recommendations PT Discharge Recommendations SNF Rehab Transportation Needs at Discharge Private Vehicle,Wheelchair/ Cabulance
--- NOTE | 2020-01-22 15:43 | CM.DPC ---
DCP Cont: Faxed a new SNF referral for review to: [facility] All fax confirmations were given to MARAH Weiss. Madeline Linder, Care Safety Director
--- NOTE | 2020-01-22 16:20 | CM.DPNOTE ---
DCP Cont Reviewed chart. Efforts continued today to secure SNF placement. therapy team suggest patient has improved functionally but will still need SNF upon DC. Spoke w/Geraldine at [facility]- they cannot accept. Geraldine spoke w/ Cole Benjamin at length today. Prior notes state Cole is guardian, this needs to be clarified by DCP team. February suggests DCP team contact Cole to discuss goals for patient's return home Hetal at [facility] says no cannot accept folks w/dementia and she has no shelter care beds available Patient is calm and cooperative w/care today, redirects easily. Agreeable to DC to SNF before return home. Patient has MCR/IDALIA, Placed call to Annalisa Cheney, [facility] P# [phone], she was unable to assist from her home computer (it just crashed) then called main [facility] P# [phone] and had to LM asking for someone to look this patient up in their record; h/o [facility] application or not? Unable to place call to Cole P# [phone] today d/t time constraints. Requested that Madeline, [employer], fax clinical packet/referral to the SNFs taking referrals, see her note MARAH Hilliard
[2020-01-23 00:15] VITALS: O2SAT 94
[2020-01-23 07:00] VITALS: O2SAT 95
[2020-01-23 07:26] VITALS: BP 156/74; PULSE 53; RESP 16; TEMP 36.9; O2SAT 99
--- NOTE | 2020-01-23 10:50 | CM.DPC ---
Addendum entered by MARAH Le 01/23/20 15:12: ADD: PT was able to get pt up and ambulating the halls slowly today and he seemed mostly alert and oriented at that time. SW met bedside with pt after and discussed [facility] LTC applications towards either in-home caregivers (which pt is still very agreeable to) or eventual assisted living. Pt agreeable with SW helping him to complete the application and signed and SW faxed along with Expedited Referral to [facility] and provided original copy to patient in his hospital folder. Update on SNF's from earlier today: [facility]- no [facility]- not accepting new admissions [facility]- no, worried he will need [facility]- could accept pt but requiring POA for financial to already be signed, and pt does not have POA set up [facility]- no beds available and likely not for a week [facility]- Only accepting COVID positive patients or previously tested positive [facility]- received referral and reviewing as of 0 today. [facility]- not accepting w/e admits, no current openings, and likely not for at least a week. [facility]- received referral, not accepting w/e admits and left msg inquiring if pt remains through weekend could they accept Sunday?? BF Original Note: DCP SNF Planning: Per MD, pt remains calm and cooperative with care and stabilizing. PT still recommending SNF for strengthening prior to safe return home. ALLISON Correa faxed following SNF's for review: [facility]- no [facility]- not accepting new admissions [facility]- no, worried he will need LTC [facility]- could accept pt but requiring POA for financial to already be signed, and pt does not have POA set up [facility]- no beds available and likely not for a week [facility]- Only accepting COVID positive patients or previously tested positive [facility]- left msg [facility]- left msg [facility]- no male beds as of 01/20, but left msg today to follow up SW met bedside with pt, who is very [place] and spoke loudly in his left ear and pt confirms that he lives on [address] [facility] [address] [facility] with Cole but Cole is not reliable and does not stay every night at the house and pt has been attempting to be independent with all his ADL's including cooking and getting groceries. Pt is agreeable with considering a caregiver that would be reliable with checking on him a couple days a week and is aware of potential for Medicaid coverage for caregiver or private pay but states they are quite expensive. Pt is agreeable to SNF at d/c prior to safe return home to build back up his strength and was able to identify life long friends that he would be willing to assign DPOA for medical and financial but confirms he has not completed any of these documents previously. ALLISON Correa called [facility] and confirmed that pt does not currently or previously had an application for [facility] and would need to complete the LTC application prior to being established with a [facility]. SW attempting to find time to support the pt in completing the LTC application today as pt would benefit from additional assist after discharge. Plan: SW to follow closely for above reviewing SNF's prior to safe return home with roommate Cole and support completing LTC leanna. MARAH Le
[2020-01-23 12:33] VITALS: BP 152/75; PULSE 60; RESP 16; TEMP 37.2; O2SAT 99
--- NOTE | 2020-01-23 13:59 | OT.IP.TRT ---
Current Diagnoses Acute kidney failure, unspecified (01/20/20) Occupational Therapy Treatment Note M2 OT-IP Current Condition Start: 01/21/20 17:36 Freq: Status: Active Protocol: Document 01/21/20 16:40 [facility] (Rec: 01/21/20 17:53 [facility] [id number]) Occupational Therapy Current Condition Current Condition Evaluation Date 01/21/20 Treatment Diagnosis Malnutrition, renal failure due to dehydration Diagnosis Onset Date 01/20/20 Weight Bearing Status Weight Bearing Status Weight Bear as Tolerated M3 OT- IP Subjective and Pain Start: 01/21/20 17:36 Freq: Status: Active Protocol: Document 01/23/20 13:59 [facility] (Rec: 01/23/20 13:59 [facility] [id number]) OT- Subjective Occupational Therapy Visit Type Type Administrative Note Notes Attempted to see pt x2. Pt declined activity and appears confused. Will hold and follow up tomorrow for shower.
[2020-01-23 15:00] VITALS: O2SAT 98
--- NOTE | 2020-01-23 15:22 | PC.NURSE ---
A/o x1 calling out at times, impulsive. Awaiting placement. 1PA with staff for ambulation
--- NOTE | 2020-01-23 15:24 | PT.IPTN ---
Current Diagnoses Acute kidney failure, unspecified (01/20/20) Physical Therapy Treatment Note M2 PT-IP Current Condition Start: 01/21/20 12:47 Freq: NEEDED Status: Active Protocol: Document 01/21/20 11:08 [facility] (Rec: 01/21/20 13:17 [facility] [id number]) Physical Therapy Current Condition Current Condition Evaluation Date 01/21/20 Treatment Diagnosis failure to thrive, weakness M3 PT-IP Subjective Start: 01/21/20 12:47 Freq: NEEDED Status: Active Protocol: Document 01/23/20 14:32 (Rec: 01/23/20 15:24 [id number]) Subjective Physical Therapy Visit Type Type Treatment Note Visit Start Time 14:32 Visit Stop Time 14:49 Total Visit Minutes 17 Number of [employer] Visits 0 Physical Therapy Visit Comments Patient Comments Pt agreeable to work w/ therapy. M4 PT-IP Mobility and Gait Start: 01/21/20 12:47 Freq: NEEDED Status: Active Protocol: Document 01/23/20 14:32 (Rec: 01/23/20 15:24 [id number]) PT-Bed Mobility Assessment Supine to Sit Supine to Sit Contact Guard Assistance,Head of Bed Elevated Scooting Scooting to Edge of Bed Contact Guard Assistance PT-Transfer Assessment Sit to and From Stand Sit to and from Stand Contact Guard Assistance, Minimal Assistance,1 Person Assistance,Use of Upper Extremities Equipment Transfer Assistive Device Gait Belt,Front Wheeled Walker Orthotic/Prosthetic Devices or Brace: No Transfers Transfer Destination Chair Transfer Technique PT ambulated w/ FWW Transfer Ability Level of Assist Contact Guard Assistance, Minimal Assistance,1 Person Assistance,Use of Upper Extremities Comments Mobility Comments Pt just woke up in bed upon PT arrival and agreeable to mobilize with PT. Pt completed supine to sit at EOB with CGA but slowly. He then stood up with min A and primarily pushed off through FWW. Pt then amb 1 lap of [facility] slowly. Pt often had mild difficulty navigating his FWW in a straight line and he often walked out of FWW during turns . He often was quite steady without signs of LOB. Pt was able to make head turns and talk to nursing staff during amb. He then returned to bedside chair after with min A for descend. He sat in chair comfortably and call light placed within reach. Gait Assessment Gait Gait Assistance Required: Contact Guard Assist Distance (Feet) 136 Able to Maintain Weight Bearing Status Yes During Gait Assistive Devices Assistive Device Gait Belt,Front Wheeled Walker Gait Deviations General Gait Pattern Decreased Stride Length, Decreased Feet Clearance, Flexed Trunk Factors Limiting Gait Function Factors Limiting Gait Function Decreased Activity Tolerance, Decreased Strength,Poor Balance,Poor Safety Awareness Comments Gait Comments Please refer to mobility section for details. PT-Balance Assessment Sitting Balance and Reactions Static Sitting Balance Ability Good Dynamic Sitting Balance Ability Good Standing Balance and Reactions Static Standing Balance Ability Good Dynamic Standing Balance Ability Fair Device Used FWW M5 PT-IP Objective Assessments Start: 01/21/20 12:47 Freq: NEEDED Status: Active Protocol: Document 01/21/20 11:08 [facility] (Rec: 01/21/20 13:17 [facility] [id number]) Orientation Orientation/Cognition Level of Alertness Confusional State Language Function Ability Hard of Hearing Safety Awareness Decreased Safety Awareness Strength Lower Extremity Strength Assessment Bilaterally Impaired Comments Strength Comments grossly 3+/5 LE strength M6 PT-IP Treatment Start: 01/21/20 12:47 Freq: NEEDED Status: Active Protocol: Document 01/22/20 14:15 [facility] (Rec: 01/22/20 15:11 [facility] [id number]) Physical Therapy Treatment Exercises Exercises Ankle Pumps,Quad Sets,Heel Slides Education Education Provided Safety Other Treatments Other Treatment Performed 7x sit<>stand 30 sec weight shifting [address] M7 PT-IP Assessment and Plan Start: 01/21/20 12:47 Freq: NEEDED Status: Active Protocol: Document 01/23/20 14:32 [facility] (Rec: 01/23/20 15:24 [facility] [id number]) PT Summary Assessment and Plan Potential Rehabilitation Potential Good Status of Condition at Evaluation Evolving Summary Impairments Strength,Balance,Bed Mobility, Transfers,Gait,Activity Tolerance Progress Towards Goals Slow Progress due to Medical Issues,Slow Progress due to Activity Tolerance Assessment Summary Matthew showed improved activity tolerance today with increased amb distance and decreased assistance needed for transfer and bed mobility. He does have difficulty navigating with a straight line with the FWW and ran into obstacles occasionally. Pt will benefit from continued skilled therapy to assess strength and balance deficits. Goals Bed Mobility Goal Standby Assistance Transfer Goal Contact Guard Assistance Gait Goal Contact Guard Assistance Gait Distance 200ft Other Goals up/down 3 stairs iwth rail CGA Days to Meet Goals 5 Treatment Plan Physical Therapy Treatment Plan Bed Mobility Training,Transfer Training,Gait Training, Therapeutic Exercise,Balance Retraining,Neuromuscular Re-ed Other Recommendations and Next Treatment work on gait, sit to stands, Focus balance, try cane instead of walker to see if safer Recommendations To Nursing Amount of Assist Needed 1 Person Assist Discharge Recommendations PT Discharge Recommendations SNF Rehab Transportation Needs at Discharge Private Vehicle,Wheelchair/ Cabulance
[2020-01-23 15:42] VITALS: BP 118/68; PULSE 95; RESP 20; TEMP 36.6; O2SAT 98
--- NOTE | 2020-01-23 17:42 | P.PN_ITS ---
Subjective Subjective Date Patient Seen: 01/23/20 Time Patient Seen: 14:20 Interval history: The patient is a 79-year-old male who was admitted to the hospital as he was found down and dehydrated. The patient had acute renal failure which has improved. He cannot recall what happened at home. He had some diarrhea. He is growing entero toxigenic E coli. He is now wake and alert and has no specific complaints. Patient has known progressive dementia as well. He is currently pending placement at an SNF. Exam Vital Signs (past 8 hours): - 01/23/20 12:33 01/23/20 15:42 Temperature 99.0 F 97.8 F Pulse Rate 60 95 H Respiratory Rate 16 20 Blood Pressure 152/75 H 118/68 Pulse Oximetry 99 98 Oxygen Delivery Method Room Air Oxygen Flow Rate 0 Narrative Exam Narrative: GENERAL APPEARANCE: Elderly male, chronically ill-appearing near cachectic and emaciated. SKIN: Inspection of the skin reveals no rashes, ulcerations or petechiae. HEENT: Normocephalic atraumatic, extraocular muscles are intact, oropharynx is clear and mucous membranes are moist, neck is supple without adenopathy NECK: Supple and symmetric. There was no thyroid enlargement, and no tenderness, or masses were felt. CHEST: Normal AP diameter and normal contour without any kyphoscoliosis. LUNGS: Auscultation of the lungs revealed no wheezes, rhonchi, or rales. CARDIOVASCULAR: There was a regular rate and rhythm without any murmurs, gallops, rubs. Peripheral pulses were 2+ and symmetric. ABDOMEN: Soft and nontender with normal bowel sounds. No ascites was noted. MUSCULOSKELETAL: There was no tenderness or effusions noted. Muscle strength and tone were normal. EXTREMITIES: No cyanosis, clubbing or edema. NEUROLOGIC: Alert. Strength is +5/5 in the Upper Extremities and Lower Extremities Bilaterally. Sensation to touch was normal. Objective Labs Result Diagrams: 01/22/20 04:40 01/22/20 04:40 Assessment & Plan Assessment & Plan narrative: Nicanor Mckinney is a 79-year-old male who was admitted to the hospital with failure to thrive, acute renal failure, likely secondary to EPEC. He is currently pending SNF placement. 1. Gastrointestinal Infection secondary to EPEC, acute, present on admission, resolved -patient was given fluid resuscitation. His symptoms have resolved at this time and did not require antibiotic therapy. 2. Acute renal failure, present on admission, resolved. -patient presented with acute renal failure -renal ultrasound shows no hydronephrosis, however there is enlarged prostate with some bladder obstruction, minimal -IV hydration has improved renal function and it is now normal 3. Severe protein calorie malnutrition -dietary consult obtained 4. Weakness with frequent fall -possibly secondary to diarrhea, however there is mention of progressive cogniti ve decline in his outpatient notes and slums score here was 16. -continue PT and OT -currently pending SNF placement, at this time he is medically ready and will discharge whenever a bed is found. Dispo: Pending SNF placement, he is medically stable for discharge whenever a bed is ready. Quality VTE Deep Vein Thrombosis/Pulmonary Embolism Present on Admission: No
[2020-01-24 05:14] VITALS: BP 141/70; PULSE 65; RESP 16; TEMP 36; O2SAT 95
--- NOTE | 2020-01-24 05:44 | PC.NURSE ---
[employer] Technician Note: 0200: Awake, resting in bed. Up intermittently to use urinal. Vital signs stable. IV in place in rt AC. Pt denies pain or discomfort.
[2020-01-24 05:56] LABS: BUN Creatinine Ratio 21.4 (6-22); Blood Urea Nitrogen 18 mg/dL (9-20); Calcium 8.9 mg/dL (8.4-10.2); Carbon Dioxide 29 mmol/L (22-32); Chloride 102 mmol/L (98-107); Estimated Glomerular Filt Rate > 60.0 mL/min (>60); Glucose 93 mg/dL (80-110); HEMOLYSIS < 15 (0-50); Magnesium 1.7 mg/dL (1.6-2.3); Potassium 4.7 mmol/L (3.4-5.1); Sodium 135 mmol/L (137-145)
[2020-01-24 08:00] VITALS: BP 145/69; PULSE 64; RESP 18; TEMP 36.2; O2SAT 96
[2020-01-24 08:20] VITALS: O2SAT 96
--- NOTE | 2020-01-24 09:06 | PM.PN.1 ---
Subjective Subjective Date Patient Seen: 01/24/20 Time Patient Seen: 09:06 Interval history: The patient is a 79-year-old male who was admitted to the hospital as he was found down and dehydrated. The patient had acute renal failure which has improved. He cannot recall what happened at home. He had some diarrhea. He is growing entero toxigenic E coli. He is now wake and alert and has no specific complaints. Patient has known progressive dementia as well. He is currently pending placement at an SNF. Exam Vital Signs (past 8 hours): - 01/24/20 05:14 01/24/20 08:00 01/24/20 08:20 Temperature 96.8 F L 97.1 F L Pulse Rate 65 64 Respiratory Rate 16 18 Blood Pressure 141/70 H 145/69 H Pulse Oximetry 95 96 96 Oxygen Delivery Method Room Air Oxygen Flow Rate 0 Narrative Exam Narrative: GENERAL APPEARANCE: Elderly male, chronically ill-appearing near cachectic and emaciated. SKIN: Inspection of the skin reveals no rashes, ulcerations or petechiae. HEENT: Normocephalic atraumatic, extraocular muscles are intact, oropharynx is clear and mucous membranes are moist, neck is supple without adenopathy NECK: Supple and symmetric. There was no thyroid enlargement, and no tenderness, or masses were felt. CHEST: Normal AP diameter and normal contour without any kyphoscoliosis. LUNGS: Auscultation of the lungs revealed no wheezes, rhonchi, or rales. CARDIOVASCULAR: There was a regular rate and rhythm without any murmurs, gallops, rubs. Peripheral pulses were 2+ and symmetric. ABDOMEN: Soft and nontender with normal bowel sounds. No ascites was noted. MUSCULOSKELETAL: There was no tenderness or effusions noted. Muscle strength and tone were normal. EXTREMITIES: No cyanosis, clubbing or edema. NEUROLOGIC: Alert. Strength is +5/5 in the Upper Extremities and Lower Extremities Bilaterally. Sensation to touch was normal. Objective Labs Result Diagrams: 01/22/20 04:40 01/24/20 05:25 Labs: Laboratory Results - last 24 hr 01/24/20 05:25 Sodium 135 L Potassium 4.7 Chloride 102 Carbon Dioxide 29 BUN 18 Creatinine 0.84 Estimated GFR > 60.0 BUN/Creatinine Ratio 21.4 Glucose 93 Calcium 8.9 Magnesium 1.7 Assessment & Plan Assessment & Plan narrative: Nicanor Mckinney is a 79-year-old male who was admitted to the hospital with failure to thrive, acute renal failure likely secondary to EPEC. He is currently pending SNF placement. 1. Gastrointestinal Infection secondary to EPEC, acute, present on admission, resolved -patient was given fluid resuscitation. His symptoms have resolved at this time and did not require antibiotic therapy. 2. Acute renal failure, present on admission, resolved. -patient presented with acute renal failure -renal ultrasound shows no hydronephrosis, however there is enlarged prostate with some bladder obstruction, minimal -IV hydration has improved renal function and it is now normal. This is likely secondary to EPEC infection as noted above. 3. Severe protein calorie malnutrition -dietary consult obtained 4. Weakness with frequent fall -possibly secondary to diarrhea, however there is mention of progressive cognitive decline in his outpatient notes and slums score here was 16. -continue PT and OT -currently pending SNF placement, at this time he is medically ready and will discharge whenever a bed is found. 5. History of prior CVA, - outpatient records from [facility] Neurology consultation recommended asa 81 mg daily and lipitor 40 mg. Will restart today. 6. Neurocognitive disorder, likely multifactorial - thiamine and multivitamin per outpatient neurology recommendations, will restart today. Dispo: Pending SNF placement, he is medically stable for discharge whenever a bed is ready, however this is a difficult patient to place given a variety of issues. Appreciate care management assistance with placement. COVID-19 COVID-19 status: Negative Result date/Date tested (Pos, Neg/Pending): 01/20/20 Quality VTE Deep Vein Thrombosis/Pulmonary Embolism Present on Admission: No
--- NOTE | 2020-01-24 10:16 | OT.IP.TRT ---
Current Diagnoses Acute kidney failure, unspecified (01/20/20) Occupational Therapy Treatment Note M2 OT-IP Current Condition Start: 01/21/20 17:36 Freq: Status: Active Protocol: Document 01/21/20 16:40 [facility] (Rec: 01/21/20 17:53 [facility] [id number]) Occupational Therapy Current Condition Current Condition Evaluation Date 01/21/20 Treatment Diagnosis Malnutrition, renal failure due to dehydration Diagnosis Onset Date 01/20/20 Weight Bearing Status Weight Bearing Status Weight Bear as Tolerated M3 OT- IP Subjective and Pain Start: 01/21/20 17:36 Freq: Status: Active Protocol: Document 01/24/20 14:11 [facility] (Rec: 01/24/20 14:17 [facility] [id number]) OT- Subjective Occupational Therapy Visit Type Type Progress Note Visit Start Time 10:06 Visit Stop Time 10:16 Total Visit Minutes 10 Notes Pt returning to bed after shower with aide. Occupational Therapy Visit Comments Patient Comments I am tired after all of that. OT Pain Assessment Pain Present Pain Present Denied Pain M4 OT- IP ADL's Start: 01/21/20 17:36 Freq: Status: Active Protocol: Document 01/24/20 14:11 [facility] (Rec: 01/24/20 14:17 [facility] [id number]) OT [id number] Comments OT Self-Feeding Comments Not performed OT ADL-Grooming General Evaluation Grooming Ability Minimal Assistance Areas Needing Assistance Combing/Brushing Hair Comments OT Grooming Comments Pt dried hair supported sitting in bed and brushed hair sitting. OT ADL-Oral Care Comments Oral Care Comments Pt declined, states he has no teeth. OT ADL-Dressing Comments OT Dressing Comments Just performed with aide prior to OT entering. OT ADL-Toileting Comments OT Toileting Comments Not performed OT ADL-Bathing Comments OT Bathing Comments Just performed with aide prior to OT entering. M5 OT- IP IADL's Start: 01/21/20 17:36 Freq: Status: Active Protocol: Document 01/21/20 16:40 [facility] (Rec: 01/21/20 17:53 [facility] [id number]) OT-Instrumental Activities of Daily Living Home Safety Awareness Home Safety Comments At this time due to pt's poor short term memory , would be beneficial for pt to have assist for all ADl and IADl needs. M6 OT- IP Functional Cognition Start: 01/21/20 17:36 Freq: Status: Active Protocol: Document 01/22/20 12:13 [facility] (Rec: 01/22/20 12:34 [facility] [id number]) Cognitive Factors Limiting Selfcare Function Cognitive Ability Level of Alertness Alert Patient Orientation Name,Place,Situation Attention Span Ability Capable of Focused Attention, Capable of Sustained Attention Ability to Follow Commands Able to Follow One Step Commands Memory Description Short Term Impaired Executive Function Ability Unable to Remember Details Cognitive Comments Cognitive Assessment Comments Pt able to sequnce through grooming and toileting task however needing reminders how to use the automatic sink. Pt more alert and not as hard of hearing as yesterday. Pt needing reminders to use the FWW to assist to walk back from the sink. OT- Vision and Hearing OT- Hearing Assessment OT- Hearing Assessment Hearing Impaired M7 OT- IP Mobility and Balance Start: 01/21/20 17:36 Freq: Status: Active Protocol: Document 01/24/20 14:11 [facility] (Rec: 01/24/20 14:17 [facility] [id number]) OT- Bed Mobility Assessment Sit to Supine Sit to Supine Assist Standby Assistance Scooting Scooting to Edge of Bed Standby Assistance Scooting Up and Down in Bed Standby Assistance OT-Transfer Assessment Comments Mobility Comments Pt seated EOB after returning to bed from shower. Pt performed sit to supine and declined any further activity out of the bed. OT- Gait Assessment Comments Gait Ability Comments Not performed M8 OT- IP Objective Assessments Start: 01/21/20 17:36 Freq: Status: Active Protocol: Document 01/21/20 16:40 [facility] (Rec: 01/21/20 17:53 [facility] [id number]) OT Gross Range of Motion Upper Extremity Range of Motion Assessment Within Functional Limits ROM Impairments BUE 0-110 shoulder WFL for pt' s needs. OT Strength Comments Strength Comments BUE from proximal to distal 4/ 5 to 4-/5. M9 OT- IP Assessment and Plan Start: 01/21/20 17:36 Freq: Status: Active Protocol: Document 01/24/20 14:11 [facility] (Rec: 01/24/20 14:17 [facility] [id number]) OT Summary Assessment and Plan Potential Rehabilitation Potential Good Analytic Complexity at Evaluation Low Summary OT Impairments Strength,Balance,Functional Cognition,Functional Mobility, Grooming,Dressing,Toileting, Bathing,Toilet Transfers, Shower Transfers,Activity Tolerance Progress Towards Goals Slow Progress due to Pain,Slow Progress due to Activity Tolerance,Slow Progress due to Cognition Assessment Summary Pt appears with increased endurance after shower with aide. Pt performed minimal activity with OT after shower but was agreeable to drying his hair and brushing his hair . Pt will benefit from continued OT services and SNF upon discharge. Goals Grooming Goal Independent Dressing Goal Independent Toileting Goal Independent Bathing Goal Independent Toilet Transfer Goal Independent Shower Transfer Goal Independent Days to Meet Goals 9 Frequency of Treatment Frequency Of Treatment Once a Day Treatment Plan OT Treatment Plan ADL Training,Functional Cognition Training,Functional Mobility,Patient/Family Education,Discharge Planning Other Treatment Recommendations and Next Shower, reassess cognition Treatment Focus Discharge Recommendations OT Discharge Recommendations SNF Rehab Home Equipment Needs defer to SNF Transportation Needs at Discharge Private Vehicle
[2020-01-24] MEDS: THIAMINE 100 MG TABLET PO (11:42)
[2020-01-24] MEDS: ASPIRIN EC 81 MG TABLET PO (11:42)
--- NOTE | 2020-01-24 14:06 | PT.IPTN ---
Addendum entered and electronically signed by Daisy Bernabe PTA 01/24/20 17:20: Vitals: supine BP 135/62 HR 70, SaO2 98% on RA; seated 132/63 HR 83, did not assess standing vitals, pt ok during mobility no report dizziness. Original Note: Current Diagnoses Acute kidney failure, unspecified (01/20/20) Physical Therapy Treatment Note M2 PT-IP Current Condition Start: 01/21/20 12:47 Freq: NEEDED Status: Active Protocol: Document 01/21/20 11:08 [facility] (Rec: 01/21/20 13:17 [facility] [id number]) Physical Therapy Current Condition Current Condition Evaluation Date 01/21/20 Treatment Diagnosis failure to thrive, weakness M3 PT-IP Subjective Start: 01/21/20 12:47 Freq: NEEDED Status: Active Protocol: Document 01/24/20 13:24 [facility] (Rec: 01/24/20 17:18 SP [id number]) Subjective Physical Therapy Visit Type Type Treatment Note Visit Start Time 13:24 Visit Stop Time 14:06 Total Visit Minutes 42 Number of STAPLER HAND Visits 1 Physical Therapy Visit Comments Patient Comments Pt agreeable to work with therapy. Therapy Pain Assessment Pain Present Pain Present Denied Pain M4 PT-IP Mobility and Gait Start: 01/21/20 12:47 Freq: NEEDED Status: Active Protocol: Document 01/24/20 13:24 SP (Rec: 01/24/20 17:18 SP [id number]) PT-Bed Mobility Assessment Supine to Sit Supine to Sit Standby Assistance,Bedrails PT-Transfer Assessment Sit to and From Stand Sit to and from Stand Contact Guard Assistance, Minimal Assistance,1 Person Assistance,Use of Upper Extremities Equipment Transfer Assistive Device Gait Belt,Front Wheeled Walker Orthotic/Prosthetic Devices or Brace: No Transfers Transfer Destination Chair Transfer Technique PT ambulated w/ FWW Transfer Ability Level of Assist Contact Guard Assistance,1 Person Assistance,Use of Upper Extremities Comments Mobility Comments Pt was laying in bed when arrived. Supine to sitting and scoot to EOB SBA. Sit to stand CGA usign FWW. Pt ambulated further distance today initially NBOS then progressed to longer stride and step over step, occasional cues for of obstacle mgt with FWW for safety from L side of bed Rm 226 down to stairs then to new room (discused by nursing pre leaving room) 207, approx 394 ft wc follow but not needed. Pt required CGA for balance and safety when turned to speak with staff, occasional cuing to stop and turn body with fWW to talk to reduce risk for falling, no LOB. Pt was able to ascend/ descend 3 stairs using R HR only to assimulate home environment Min A (10%) initially first step then CGA 2 steps adn descend 1 hand HR, no LOB but cued for slow pacing for safety. Pt returned to new room 207 and sat in chair, cued for FWW fully with him backing up with slow descent. Pt had chair alarm on and all needs in reach, nursing staff moved all needs durign tx. New nurse in room when left. Gait Assessment Gait Gait Assistance Required: Contact Guard Assist Distance (Feet) 394 Able to Maintain Weight Bearing Status Yes During Gait Assistive Devices Assistive Device Gait Belt,Front Wheeled Walker Orthotic/Prosthetic Devices or Brace: No Gait Deviations General Gait Pattern Decreased Stride Length, Decreased Feet Clearance, Flexed Trunk Factors Limiting Gait Function Factors Limiting Gait Function Decreased Activity Tolerance, Decreased Strength,Poor Balance,Poor Safety Awareness Comments Gait Comments Not performed Stair Climbing Assessment Evaluation Level of Assist On Stairs Contact Guard Assistance, Minimal Assistance,1 Person Assistance Devices Stair Climbing Assistive Devices Right Railing Technique/Endurance Stair Climbing Direction Ascend and Descend Stair Climbing Technique Step to Step Number of Steps Climbed 3 Stair Climbing Set # Repetitions (reps) 1 Comments Stair Climbing Comments see mobility comments, patient did wiggle rail while stating I am checking it is sturdy . PT-Balance Assessment Sitting Balance and Reactions Static Sitting Balance Ability Good Dynamic Sitting Balance Ability Good Standing Balance and Reactions Static Standing Balance Ability Good Dynamic Standing Balance Ability Fair Device Used FWW M5 PT-IP Objective Assessments Start: 01/21/20 12:47 Freq: NEEDED Status: Active Protocol: Document 01/21/20 11:08 [facility] (Rec: 01/21/20 13:17 [facility] [id number]) Orientation Orientation/Cognition Level of Alertness Confusional State Language Function Ability Hard of Hearing Safety Awareness Decreased Safety Awareness Strength Lower Extremity Strength Assessment Bilaterally Impaired Comments Strength Comments grossly 3+/5 LE strength M6 PT-IP Treatment Start: 01/21/20 12:47 Freq: NEEDED Status: Active Protocol: Document 01/24/20 13:24 SP (Rec: 05/09/20 17:18 SP [id number]) Physical Therapy Treatment Exercises Exercises Ankle Pumps,Heel Slides,Seated Knee Flexion/Extension Education Education Provided Safety M7 PT-IP Assessment and Plan Start: 01/21/20 12:47 Freq: NEEDED Status: Active Protocol: Document 01/24/20 13:24 SP (Rec: 01/24/20 17:18 SP [id number]) PT Summary Assessment and Plan Potential Rehabilitation Potential Good Status of Condition at Evaluation Evolving Summary Impairments Strength,Balance,Bed Mobility, Transfers,Gait,Activity Tolerance Progress Towards Goals Progressing Toward Goals Assessment Summary Pt improved in distance during gait today, requires occasional cuing for safety hand and FWW positioning and stationary stance and turning to converse with someone for balance safety using FWW at this time CGA, cGa-10 % A durign stair mgt 1 HR to assimulate home environment. Pt is not at his PLOF, recommend SNF at this time to progress strength and balance, assess SPC use during gait if safe. Goals Bed Mobility Goal Standby Assistance Transfer Goal Contact Guard Assistance Gait Goal Contact Guard Assistance Gait Distance 200ft Other Goals up/down 3 stairs iwth rail CGA Days to Meet Goals 5 Frequency of Treatment Frequency Of Treatment Once a Day Treatment Plan Physical Therapy Treatment Plan Bed Mobility Training,Transfer Training,Gait Training, Therapeutic Exercise,Balance Retraining,Neuromuscular Re-ed Other Recommendations and Next Treatment work on gait, sit to stands, Focus balance, try cane instead of walker to see if safer Recommendations To Nursing Amount of Assist Needed 1 Person Assist Discharge Recommendations PT Discharge Recommendations SNF Rehab Transportation Needs at Discharge Private Vehicle,Wheelchair/ Cabulance
--- NOTE | 2020-01-24 15:00 | PC.NURSE ---
Transfer Note Pt transferred to room 207 from room 226 at 1300. All belongings moved with pt. Call light within reach, chair alarm on. Report given to Jamilah OZUNA.
--- NOTE | 2020-01-24 15:22 | CM.DPNOTE ---
DCP Cont/ Update SNF Search [facility] beds- faxed referral today to the general Care Management F# [phone], no one doing admissions this w/e, [facility]- not accepting new admissions [facility]- no, worried he will need [facility]- could accept pt but requiring POA for financial to already be signed, and pt does not have POA set up [facility]- no beds available and likely not for a week [facility]- Only accepting COVID positive patients or previously tested positive [facility]- received referral Sunday, placed call today and have not heard back [facility]- not accepting w/e admits, no current openings, and likely not for at least a week. [facility]- received referral, not accepting w/e admits, call back Sunday [facility]- No one to review admissions over the w/e, faxed referral, call back Sunday [facility]- No one to review admissions over the w/e, faxed referral, call back Sunday [facility] and rehab- No beds [facility]- Call back Sunday, no referral faxed today [facility]- [facility] This [facility] unable to update patient and/or family today, will request that DCP team on Sunday makes contact w/family if time permits. MARAH Hilliard
[2020-01-24 15:25] VITALS: BP 130/69; PULSE 69; RESP 18; TEMP 36.8; O2SAT 98
[2020-01-24 16:40] VITALS: O2SAT 94
[2020-01-24] MEDS: ATORVASTATIN 20 MG TABLET 40 MG PO (22:05)
[2020-01-24 23:00] VITALS: BP 138/59; PULSE 75; RESP 18; TEMP 37; O2SAT 96
[2020-01-25] MEDS: SODIUM CHLORIDE 0.9% FLUSH 10 ML IV ×2 (00:58→08:10)
[2020-01-25 06:15] LABS: BUN Creatinine Ratio 22.4 (6-22); Blood Urea Nitrogen 26 mg/dL (9-20); Calcium 9.1 mg/dL (8.4-10.2); Carbon Dioxide 29 mmol/L (22-32); Chloride 105 mmol/L (98-107); Estimated Glomerular Filt Rate > 60.0 mL/min (>60); Glucose 103 mg/dL (80-110); HEMOLYSIS < 15 (0-50); Magnesium 1.7 mg/dL (1.6-2.3); Potassium 4.4 mmol/L (3.4-5.1); Sodium 139 mmol/L (137-145)
[2020-01-25] MEDS: MULTIVITAMIN 1 TABLET 1 TAB PO (08:10)
[2020-01-25] MEDS: ASPIRIN EC 81 MG TABLET PO (08:10)
[2020-01-25] MEDS: THIAMINE 100 MG TABLET PO (08:10)
[2020-01-25 08:30] VITALS: O2SAT 98
[2020-01-25 08:55] VITALS: BP 148/73; PULSE 79; RESP 17; TEMP 37; O2SAT 97
--- NOTE | 2020-01-25 11:13 | PM.PN.1 ---
Subjective Subjective Date Patient Seen: 01/25/20 Time Patient Seen: 11:14 Interval history: The patient is a 79-year-old male who was admitted to the hospital as he was found down and dehydrated. The patient had acute renal failure which has improved. He is now wake and alert and has no specific complaints. Patient has known progressive dementia as well. He is currently pending placement at an SNF. Exam Vital Signs (past 8 hours): - 01/25/20 08:30 01/25/20 08:55 Temperature 98.6 F Pulse Rate 79 Respiratory Rate 17 Blood Pressure 148/73 H Pulse Oximetry 98 97 Oxygen Delivery Method Room Air Oxygen Flow Rate 0 Narrative Exam Narrative: GENERAL APPEARANCE: Elderly male, chronically ill-appearing near cachectic and emaciated. SKIN: Inspection of the skin reveals no rashes, ulcerations or petechiae. HEENT: Normocephalic atraumatic, extraocular muscles are intact, oropharynx is clear and mucous membranes are moist, neck is supple without adenopathy NECK: Supple and symmetric. There was no thyroid enlargement, and no tenderness, or masses were felt. CHEST: Normal AP diameter and normal contour without any kyphoscoliosis. LUNGS: Auscultation of the lungs revealed no wheezes, rhonchi, or rales. CARDIOVASCULAR: There was a regular rate and rhythm without any murmurs, gallops, rubs. Peripheral pulses were 2+ and symmetric. ABDOMEN: Soft and nontender with normal bowel sounds. No ascites was noted. MUSCULOSKELETAL: There was no tenderness or effusions noted. Muscle strength and tone were normal. EXTREMITIES: No cyanosis, clubbing or edema. NEUROLOGIC: Alert oriented x2 (name, [facility]). Strength is +5/5 in the Upper Extremities and Lower Extremities Bilaterally. Sensation to touch was normal. Objective Labs Result Diagrams: 01/22/20 04:40 01/25/20 05:50 Labs: Laboratory Results - last 24 hr 01/25/20 05:50 Sodium 139 Potassium 4.4 Chloride 105 Carbon Dioxide 29 BUN 26 H Creatinine 1.16 Estimated GFR > 60.0 BUN/Creatinine Ratio 22.4 H Glucose 103 Calcium 9.1 Magnesium 1.7 Assessment & Plan Assessment & Plan narrative: Nicanor Mckinney is a 79-year-old male who was admitted to the hospital with failure to thrive, acute renal failure likely secondary to EPEC. He is currently pending SNF placement. 1. Gastrointestinal Infection secondary to EPEC, acute, present on admission, resolved -patient was given fluid resuscitation. His symptoms have resolved at this time and did not require antibiotic therapy. 2. Acute renal failure, present on admission, resolved. -patient presented with acute renal failure -renal ultrasound shows no hydronephrosis, however there is enlarged prostate with some bladder obstruction, minimal -IV hydration has improved renal function and it is now normal. This is likely secondary to EPEC infection as noted above. 3. Severe protein calorie malnutrition -dietary consult obtained 4. Weakness with frequent fall -possibly secondary to diarrhea, however there is mention of progressive cognitive decline in his outpatient notes and slums score here was 16. -continue PT and OT -currently pending SNF placement, at this time he is medically ready and will discharge whenever a bed is found. 5. History of prior CVA, - outpatient records from [facility] Neurology consultation recommended asa 81 mg daily and lipitor 40 mg. Have restarted. 6. Neurocognitive disorder, likely multifactorial - thiamine and multivitamin per outpatient neurology recommendations Dispo: Pending SNF placement, he is medically stable for discharge whenever a bed is ready, however this is a difficult patient to place given a variety of issues. Appreciate care management assistance with placement. Quality VTE Deep Vein Thrombosis/Pulmonary Embolism Present on Admission: No
--- NOTE | 2020-01-25 13:02 | PC.NURSE ---
Shift summary: Patient is hard of hearing, pleasant and cooperative. 1 pa w/ fww to Br. Had sm bm this am. Up in recliner for breakfast, back to bed per his request. Using waffle cushion while in recliner d/t red blanchable sacrum. Assisted with toe and fingernail care/trimming, and lotion to very dry flaking legs. Patient appreciative of care
--- NOTE | 2020-01-25 13:35 | CM.DPC ---
DCP continued: EMR reviewed: CM/RN met with patient at the bedside and explained role. Patient is hard of hearing but hears better on the right side. CM/Rn gave patient a copy of his Home and community services referral initiated here. Patient looked at it then placed it in his [facility] folder. patient stated he is feeling better and would like to go home if he can get more strength. Called [facility] and they are reviewing but do not have intake on the weekends, Called [facility] and they do not accept patients on the weekends either but Cm department to follow up in the morning. CM/RN spoke to Dr. Darnell and let him know that we will need a negative covid19 test within 48 hours if he is accepted to SNF, Patient will need PASRR completed if facility is found.... Raysa Celestin RN
--- NOTE | 2020-01-25 14:30 | PT.IPTN ---
Current Diagnoses Acute kidney failure, unspecified (01/20/20) Physical Therapy Treatment Note M2 PT-IP Current Condition Start: 01/21/20 12:47 Freq: NEEDED Status: Active Protocol: Document 01/21/20 11:08 [facility] (Rec: 01/21/20 13:17 [facility] [id number]) Physical Therapy Current Condition Current Condition Evaluation Date 01/21/20 Treatment Diagnosis failure to thrive, weakness M3 PT-IP Subjective Start: 01/21/20 12:47 Freq: NEEDED Status: Active Protocol: Document 01/25/20 14:00 [facility] (Rec: 01/25/20 16:01 [facility] [id number]) Subjective Physical Therapy Visit Type Type Treatment Note Visit Start Time 14:00 Visit Stop Time 14:30 Total Visit Minutes 30 Number of INFORMATION TECHNOLOGY ASSOCIATE Visits 2 Physical Therapy Visit Comments Patient Comments Pt agreeable to work with therapy. M4 PT-IP Mobility and Gait Start: 01/21/20 12:47 Freq: NEEDED Status: Active Protocol: Document 01/25/20 14:00 [facility] (Rec: 01/25/20 16:01 [facility] [id number]) PT-Bed Mobility Assessment Sit to Supine Sit to Supine Contact Guard Assistance,1 Person Assistance Scooting Scooting to Edge of Bed Standby Assistance PT-Transfer Assessment Sit to and From Stand Sit to and from Stand Contact Guard Assistance,1 Person Assistance,Use of Upper Extremities Equipment Transfer Assistive Device Gait Belt,Front Wheeled Walker Orthotic/Prosthetic Devices or Brace: No Transfers Transfer Destination Bed Transfer Technique PT ambulated w/ FWW Transfer Ability Level of Assist Contact Guard Assistance,1 Person Assistance,Use of Upper Extremities Comments Mobility Comments Pt was reclined in chair upon arrival from therapy. Reviewed ankle pumps and seated knee extension/flexion. SBA for scooting to edge of chair, CGA for sit<> stand w/ FWW and cues for hand placement. Once standing, pt was able to weight shift for ~ 30 sec prior to ambulating ~ 230 ft w/ CGA and FWW. Pt returned to room and got into bed w/ CGA and cues, and was able to lift his hips off the mattress to have his gown adjusted. Pt left in bed w/ all needs in reach. Gait Assessment Gait Gait Assistance Required: Contact Guard Assist Distance (Feet) 230 Able to Maintain Weight Bearing Status Yes During Gait Assistive Devices Assistive Device Gait Belt,Front Wheeled Walker Orthotic/Prosthetic Devices or Brace: No Gait Deviations General Gait Pattern Decreased Stride Length, Decreased Feet Clearance, Flexed Trunk Factors Limiting Gait Function Factors Limiting Gait Function Decreased Activity Tolerance, Decreased Strength,Poor Balance,Poor Safety Awareness Comments Gait Comments Pt ambulated ~230 ft w/ FWW and CGA. Pt ambulates w/ slow pace, decreased foot clearance , and stride length due to decrease tolerance for activity. Requires frequent cues for FWW management/staying inside of FWW. Pts improper use of FWW results in decreased balance and increased flexed trunk. 2x short standing rest breaks. PT-Balance Assessment Sitting Balance and Reactions Static Sitting Balance Ability Good Dynamic Sitting Balance Ability Good Standing Balance and Reactions Static Standing Balance Ability Good Dynamic Standing Balance Ability Fair Device Used FWW M5 PT-IP Objective Assessments Start: 01/21/20 12:47 Freq: NEEDED Status: Active Protocol: Document 01/21/20 11:08 [facility] (Rec: 01/21/20 13:17 [facility] [id number]) Orientation Orientation/Cognition Level of Alertness Confusional State Language Function Ability Hard of Hearing Safety Awareness Decreased Safety Awareness Strength Lower Extremity Strength Assessment Bilaterally Impaired Comments Strength Comments grossly 3+/5 LE strength M6 PT-IP Treatment Start: 01/21/20 12:47 Freq: NEEDED Status: Active Protocol: Document 01/25/20 14:00 [facility] (Rec: 01/25/20 16:01 [facility] [id number]) Physical Therapy Treatment Exercises Exercises Ankle Pumps,Seated Knee Flexion/Extension Education Education Provided Safety M7 PT-IP Assessment and Plan Start: 01/21/20 12:47 Freq: NEEDED Status: Active Protocol: Document 01/25/20 14:00 [facility] (Rec: 01/25/20 16:01 [facility] [id number]) PT Summary Assessment and Plan Potential Rehabilitation Potential Good Status of Condition at Evaluation Evolving Summary Impairments Strength,Balance,Bed Mobility, Transfers,Gait,Activity Tolerance Progress Towards Goals Progressing Toward Goals Assessment Summary Pt is showing progress w/ bed mobility and ambulation, but requires CGA and cues for safe use of FWW. Pt has decreased strength and low tolerance for activity and will benefit from SNF to improve level of function and safety. Goals Bed Mobility Goal Standby Assistance Transfer Goal Contact Guard Assistance Gait Goal Contact Guard Assistance Gait Distance 200ft Other Goals up/down 3 stairs iwth rail CGA Days to Meet Goals 5 Frequency of Treatment Frequency Of Treatment Once a Day Treatment Plan Physical Therapy Treatment Plan Bed Mobility Training,Transfer Training,Gait Training, Therapeutic Exercise,Balance Retraining,Neuromuscular Re-ed Other Recommendations and Next Treatment work on gait, sit to stands, Focus balance, try cane instead of walker to see if safer Recommendations To Nursing Amount of Assist Needed 1 Person Assist Discharge Recommendations PT Discharge Recommendations SNF Rehab Transportation Needs at Discharge Private Vehicle,Wheelchair/ Cabulance
[2020-01-25 15:10] VITALS: BP 152/75; PULSE 75; RESP 17; TEMP 36.7; O2SAT 97
[2020-01-25 18:06] VITALS: O2SAT 95
[2020-01-25] MEDS: ATORVASTATIN 20 MG TABLET 40 MG PO (20:58)
[2020-01-25 23:00] VITALS: BP 146/69; PULSE 73; RESP 16; TEMP 36.6; O2SAT 95; O2SAT 96
[2020-01-26 02:21] VITALS: BMI 16.0
[2020-01-26 06:29] LABS: BUN Creatinine Ratio 23.3 (6-22); Blood Urea Nitrogen 20 mg/dL (9-20); Carbon Dioxide 29 mmol/L (22-32); Chloride 102 mmol/L (98-107); Estimated Glomerular Filt Rate > 60.0 mL/min (>60); Glucose 91 mg/dL (80-110); HEMOLYSIS < 15 (0-50); Magnesium 1.8 mg/dL (1.6-2.3); Potassium 4.4 mmol/L (3.4-5.1); Sodium 135 mmol/L (137-145)
[2020-01-26 07:52] VITALS: O2SAT 96
[2020-01-26] MEDS: ASPIRIN EC 81 MG TABLET PO (08:53)
[2020-01-26] MEDS: MULTIVITAMIN 1 TABLET 1 TAB PO (08:53)
[2020-01-26] MEDS: THIAMINE 100 MG TABLET PO (08:53)
--- NOTE | 2020-01-26 09:32 | PT.IPTN ---
Current Diagnoses Acute kidney failure, unspecified (01/20/20) Physical Therapy Treatment Note M2 PT-IP Current Condition Start: 01/21/20 12:47 Freq: NEEDED Status: Active Protocol: Document 01/21/20 11:08 [facility] (Rec: 01/21/20 13:17 [facility] [id number]) Physical Therapy Current Condition Current Condition Evaluation Date 01/21/20 Treatment Diagnosis failure to thrive, weakness M3 PT-IP Subjective Start: 01/21/20 12:47 Freq: NEEDED Status: Active Protocol: Document 01/26/20 08:59 [facility] (Rec: 01/26/20 12:01 [facility] [email or web address]) Subjective Physical Therapy Visit Type Type Treatment Note Visit Start Time 08:59 Visit Stop Time 09:32 Total Visit Minutes 33 Number of SOCCER BALL ASSEMBLER Visits 3 Physical Therapy Visit Comments Patient Comments Pt agreeable to work with therapy. M4 PT-IP Mobility and Gait Start: 01/21/20 12:47 Freq: NEEDED Status: Active Protocol: Document 01/26/20 08:59 [facility] (Rec: 01/26/20 12:01 [facility] [id number]) PT-Bed Mobility Assessment Supine to Sit Supine to Sit Standby Assistance,Head of Bed Elevated,Bedrails Sit to Supine Sit to Supine Contact Guard Assistance,1 Person Assistance Scooting Scooting to Edge of Bed Standby Assistance PT-Transfer Assessment Sit to and From Stand Sit to and from Stand Contact Guard Assistance,1 Person Assistance,Use of Upper Extremities Equipment Transfer Assistive Device Gait Belt,Straight Cane,Front Wheeled Walker Orthotic/Prosthetic Devices or Brace: No Transfers Transfer Destination Bed Transfer Technique PT ambulated w/ FWW and SPC Transfer Ability Level of Assist Contact Guard Assistance,1 Person Assistance,Use of Upper Extremities Comments Mobility Comments Pt was in bed upon arrival from therapy. Pt stated he has been doing ankle pumps in bed and demonstrated proper technique. SBA for sup<>sit w/ HOB elevated and SBA for scooting to EOB. CGA and cues for hand placement for sit<> stand w/ SPC. Once standing, pt ambulated ~20 ft around room w/ SPC. Pt was able to use SPC, but is much safer and more steady when ambulating w / FWW. Swtiched from SPC to FWW for ~220 ft ambulation in hallway. Pt was able to increase speed and stride length when using FWW as opposed to SPC, but still needed frequent reminders for FWW management and staying inside of FWW. Pt continues to have decreased foot clearance and slow pace d/t weakness. CGA for stand<>sit in bed, SBA for sit<>supine and repositioning. Pt left in bed w/ all needs in reach. Dispensed FWW for home use. Gait Assessment Gait Gait Assistance Required: Contact Guard Assist Distance (Feet) 240 Able to Maintain Weight Bearing Status Yes During Gait Assistive Devices Assistive Device Gait Belt,Straight Cane,Front Wheeled Walker Orthotic/Prosthetic Devices or Brace: No Gait Deviations General Gait Pattern Decreased Stride Length, Decreased Feet Clearance, Flexed Trunk Factors Limiting Gait Function Factors Limiting Gait Function Decreased Activity Tolerance, Decreased Strength,Poor Balance,Poor Safety Awareness Comments Gait Comments Please refer to mobility section for details. PT-Balance Assessment Sitting Balance and Reactions Static Sitting Balance Ability Good Dynamic Sitting Balance Ability Good Standing Balance and Reactions Static Standing Balance Ability Good Dynamic Standing Balance Ability Fair Device Used FWW M5 PT-IP Objective Assessments Start: 01/21/20 12:47 Freq: NEEDED Status: Active Protocol: Document 01/21/20 11:08 [facility] (Rec: 01/21/20 13:17 [facility] [id number]) Orientation Orientation/Cognition Level of Alertness Confusional State Language Function Ability Hard of Hearing Safety Awareness Decreased Safety Awareness Strength Lower Extremity Strength Assessment Bilaterally Impaired Comments Strength Comments grossly 3+/5 LE strength M6 PT-IP Treatment Start: 01/21/20 12:47 Freq: NEEDED Status: Active Protocol: Document 01/26/20 08:59 [facility] (Rec: 01/26/20 12:01 [facility] [id number]) Physical Therapy Treatment Exercises Exercises Ankle Pumps Education Education Provided Safety M7 PT-IP Assessment and Plan Start: 01/21/20 12:47 Freq: NEEDED Status: Active Protocol: Document 01/26/20 08:59 [facility] (Rec: 01/26/20 12:01 [facility] [email or web address]) PT Summary Assessment and Plan Potential Rehabilitation Potential Good Status of Condition at Evaluation Evolving Summary Impairments Strength,Balance,Bed Mobility, Transfers,Gait,Activity Tolerance Progress Towards Goals Progressing Toward Goals Assessment Summary Pt is SBA for bed mobility, CGA for sit<>stand and ambulation. Pt ambulated ~240 ft (20 ft w/ SPC but was unsafe, 220 ft w/ FWW which was safer, but still needs cues). Although pt is ambulating further distances, he continues to need frequent reminders for FWW management and would benefit from SNF to improve strength and ambulation, but will need increased assistance at home as well as HHPT. FWW dispensed. Goals Bed Mobility Goal Standby Assistance Transfer Goal Contact Guard Assistance Gait Goal Contact Guard Assistance Gait Distance 200ft Other Goals up/down 3 stairs iwth rail CGA Days to Meet Goals 5 Frequency of Treatment Frequency Of Treatment Once a Day Treatment Plan Physical Therapy Treatment Plan Bed Mobility Training,Transfer Training,Gait Training, Therapeutic Exercise,Balance Retraining,Neuromuscular Re-ed Recommendations To Nursing Amount of Assist Needed 1 Person Assist Discharge Recommendations PT Discharge Recommendations SNF Rehab Transportation Needs at Discharge Private Vehicle,Wheelchair/ Cabulance
[2020-01-26 10:00] VITALS: BP 149/81; PULSE 74; RESP 18; TEMP 36.3; O2SAT 97
--- NOTE | 2020-01-26 10:59 | OT.IP.TRT ---
Current Diagnoses Acute kidney failure, unspecified (01/20/20) Occupational Therapy Treatment Note M2 OT-IP Current Condition Start: 01/21/20 17:36 Freq: Status: Active Protocol: Document 01/21/20 16:40 [facility] (Rec: 01/21/20 17:53 [facility] [id number]) Occupational Therapy Current Condition Current Condition Evaluation Date 01/21/20 Treatment Diagnosis Malnutrition, renal failure due to dehydration Diagnosis Onset Date 01/20/20 Weight Bearing Status Weight Bearing Status Weight Bear as Tolerated M3 OT- IP Subjective and Pain Start: 01/21/20 17:36 Freq: Status: Active Protocol: Document 01/26/20 10:56 [facility] (Rec: 01/26/20 10:59 [facility] [id number]) OT- Subjective Occupational Therapy Visit Type Type Treatment Note Visit Start Time 10:35 Visit Stop Time 10:43 Total Visit Minutes 8 Occupational Therapy Visit Comments Patient Comments Pt states does not want to shower at this time. Patient/Caregiver Goals To go home. OT Pain Assessment Pain When Pain Assessed At Rest Pain Present Pain Present Denied Pain M4 OT- IP ADL's Start: 01/21/20 17:36 Freq: Status: Active Protocol: Document 01/24/20 14:11 [facility] (Rec: 01/24/20 14:17 [facility] [id number]) OT [id number] Comments OT Self-Feeding Comments Not performed OT ADL-Grooming General Evaluation Grooming Ability Minimal Assistance Areas Needing Assistance Combing/Brushing Hair Comments OT Grooming Comments Pt dried hair supported sitting in bed and brushed hair sitting. OT ADL-Oral Care Comments Oral Care Comments Pt declined, states he has no teeth. OT ADL-Dressing Comments OT Dressing Comments Just performed with aide prior to OT entering. OT ADL-Toileting Comments OT Toileting Comments Not performed OT ADL-Bathing Comments OT Bathing Comments Just performed with aide prior to OT entering. M5 OT- IP IADL's Start: 01/21/20 17:36 Freq: Status: Active Protocol: Document 01/21/20 16:40 [facility] (Rec: 01/21/20 17:53 [facility] [id number]) OT-Instrumental Activities of Daily Living Home Safety Awareness Home Safety Comments At this time due to pt's poor short term memory , would be beneficial for pt to have assist for all ADl and IADl needs. M6 OT- IP Functional Cognition Start: 01/21/20 17:36 Freq: Status: Active Protocol: Document 01/26/20 10:56 [facility] (Rec: 01/26/20 10:59 [facility] [id number]) Cognitive Factors Limiting Selfcare Function Cognitive Ability Level of Alertness Alert Cognitive Comments Cognitive Assessment Comments Went over energy conservation and ways for pt to be safe at home, for example to use the FWW at all times and to be sure to ask family for assist as needed. M7 OT- IP Mobility and Balance Start: 01/21/20 17:36 Freq: Status: Active Protocol: Document 01/24/20 14:11 [facility] (Rec: 01/24/20 14:17 [facility] [id number]) OT- Bed Mobility Assessment Sit to Supine Sit to Supine Assist Standby Assistance Scooting Scooting to Edge of Bed Standby Assistance Scooting Up and Down in Bed Standby Assistance OT-Transfer Assessment Comments Mobility Comments Pt seated EOB after returning to bed from shower. Pt performed sit to supine and declined any further activity out of the bed. OT- Gait Assessment Comments Gait Ability Comments Not performed M8 OT- IP Objective Assessments Start: 01/21/20 17:36 Freq: Status: Active Protocol: Document 01/21/20 16:40 [facility] (Rec: 01/21/20 17:53 [facility] [id number]) OT Gross Range of Motion Upper Extremity Range of Motion Assessment Within Functional Limits ROM Impairments BUE 0-110 shoulder WFL for pt' s needs. OT Strength Comments Strength Comments BUE from proximal to distal 4/ 5 to 4-/5. M9 OT- IP Assessment and Plan Start: 01/21/20 17:36 Freq: Status: Active Protocol: Document 01/26/20 10:56 [facility] (Rec: 01/26/20 10:59 [facility] [id number]) OT Summary Assessment and Plan Potential Rehabilitation Potential Good Analytic Complexity at Evaluation Low Summary Progress Towards Goals Progressing Toward Goals Assessment Summary Pt looking to go home with family today. FWW to be issued . Frequency of Treatment Frequency Of Treatment Once a Day Treatment Plan OT Treatment Plan ADL Training,Functional Cognition Training,Functional Mobility,Patient/Family Education,Discharge Planning Discharge Recommendations OT Discharge Recommendations Home with Assistance Transportation Needs at Discharge Private Vehicle
--- NOTE | 2020-01-26 11:09 | PM.DS.1 ---
History of Present Illness History of Present Illness Date Patient Seen: 01/26/20 Time Patient Seen: 09:30 Chief complaint: Syncope Narrative: As per KOLTON Baron: Nicanor Mckinney is a 79-year-old male who was requested to be readmitted for a ground level fall. Patient unable to provide a history and actually initially not able to communicate due to being very hard of hearing and me having to have full COVID-19 precaution PPE equipment on. Per the emergency room provider, was found by EMS at home and unresponsive. The patient did not provide any meaningful history to the emergency department provider either as he was very confused and seemed to be upset about the Emergency Room provider ?staring at me?. They stated he was confused and only oriented to himself. Head CT was negative and the patient appeared to have a acute kidney injury probably secondary to dehydration. After he arrived to the floor he was ruled out for COVID-19 and I was able to conduct an interview and exam with the patient. The patient is very hard of hearing and apparently lip reads. He states that he knows he is in the hospital but does not recall any reason why he would have ended up in the hospital nor does he recall falling. He denies pain, shortness of breath, dysuria, diarrhea or constipation. He stated he had knee in about 2 days. 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 At that time he displayed significant advanced dementia with a MOCA score of 12/26 and concern was made at that time as to whether he would actually follow-up on stroke prevention or even treatment. Discharge Providers Provider Date of admission: 01/20/20 20:55 Discharge Date: 01/26/20 Primary care physician: David Fisher MD Consults: 01/21/20 00:29 Consult to Occupational Therapy Evaluate & Treat Comment: Cog eval Physician Instructions: Evaluate and treat Consult to Physical Therapy Evaluate & Treat Comment: frequent falls Physician Instructions: Evaluate and Treat 01/21/20 00:30 Consult to ACQUISITION ADVISOR - Secondary Education Professor Routine Comment: Question safe living conditions and malnourishment ACQUISITION ADVISOR Consult: Community Health Res Need APS/CPS Crisis Referral 01/21/20 02:38 Consult to Dietitian, Adult Routine Comment: Reason For Exam: Severe protein malnutrition 01/21/20 13:28 Consult to Dietitian, Adult Routine Comment: Reason For Exam: weight loss 01/26/20 10:21 Consult to Home Health Routine Comment: DX: Syncope Reason For Exam: Please obtain FWW for home use 01/26/20 10:58 Consult to Home Health Routine Comment: DX: dehydration and malnutrition, TATIANA Reason For Exam: Home health 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 This resolved with fluid resuscitation. He was recommended for SNF placement but there was difficulty in finding an accepting facility. Patient was ultimately discharged home with home PT as he did begin to ambulate more with PT over the course of his stay. 1. Gastrointestinal Infection secondary to EPEC, acute, present on admission, resolved -patient was given fluid resuscitation. His symptoms resolved and did not require antibiotic therapy. 2. Acute renal failure, present on admission, resolved. -patient presented with acute renal failure -renal ultrasound shows no hydronephrosis, however there is enlarged prostate with some bladder obstruction, minimal -IV hydration has improved renal function and it is now normal. This is likely secondary to EPEC infection as noted above. 3. Severe protein calorie malnutrition -dietary consult obtained and patient was counseled on maintaining adequate nutrition. 4. Weakness with frequent fall -possibly secondary to diarrhea, however there is mention of progressive cognitive decline in his outpatient notes and slums score here was 16. -continue PT and OT -currently pending SNF placement, at this time he is medically ready and will discharge whenever a bed is found. 5. History of prior CVA, - outpatient records from [facility] Neurology consultation recommended asa 81 mg daily and lipitor 40 mg. Have restarted. 6. Neurocognitive disorder, likely multifactorial - thiamine and multivitamin per outpatient neurology recommendations Dispo: Discharge home with home health. Time Spent with Patient Time spent: Greater than 30 minutes Exam Vital Signs (past 8 hours): - 01/26/20 07:52 01/26/20 10:00 Temperature 97.4 F L Pulse Rate 74 Respiratory Rate 18 Blood Pressure 149/81 H Pulse Oximetry 96 97 Oxygen Delivery Method Room Air Oxygen Flow Rate 0 Narrative Exam Narrative: GENERAL APPEARANCE: Elderly male, chronically ill-appearing near cachectic and emaciated. SKIN: Inspection of the skin reveals no rashes, ulcerations or petechiae. HEENT: Normocephalic atraumatic, extraocular muscles are intact, oropharynx is clear and mucous membranes are moist, neck is supple without adenopathy NECK: Supple and symmetric. There was no thyroid enlargement, and no tenderness, or masses were felt. CHEST: Normal AP diameter and normal contour without any kyphoscoliosis. LUNGS: Auscultation of the lungs revealed no wheezes, rhonchi, or rales. CARDIOVASCULAR: There was a regular rate and rhythm without any murmurs, gallops, rubs. Peripheral pulses were 2+ and symmetric. ABDOMEN: Soft and nontender with normal bowel sounds. No ascites was noted. MUSCULOSKELETAL: There was no tenderness or effusions noted. Muscle strength and tone were normal. EXTREMITIES: No cyanosis, clubbing or edema. NEUROLOGIC: Alert oriented x2 (name, [facility]). Strength is +5/5 in the Upper Extremities and Lower Extremities Bilaterally. Sensation to touch was normal. Objective Labs Result Diagrams: 01/22/20 04:40 01/26/20 06:00 Labs: Laboratory Results - last 24 hr 01/26/20 06:00 Sodium 135 L Potassium 4.4 Chloride 102 Carbon Dioxide 29 BUN 20 Creatinine 0.86 Estimated GFR > 60.0 BUN/Creatinine Ratio 23.3 H Glucose 91 Calcium 9.0 Magnesium 1.8 Discharge Plan Discharge Plan Patient Disposition: Home Health Service Transfer to: Home Health, Other Discharge comment: Patient was admitted with weakness and acute kidney injury likely secondary to infectious diarrheal illness which was self limited. He was evaluted for SNF but no accepting facility was found. Patient being discharged home with home health. Discharge orders & Medications Prescriptions: New multivitamin [Tab-A-Thomas] Tablet 1 tab PO DAILY 30 Days Qty: 30 RF: 0 acetaminophen 325 mg Tablet 650 mg PO Q6HR PRN (Reason: Fever/Mild Pain (1-3)) 30 Days Qty: 60 RF: 0 thiamine HCl (vitamin B1) [Vitamin B-1] 100 mg Tablet 100 mg PO DAILY 30 Days Qty: 30 RF: 0 aspirin 81 mg Tablet,Delayed Release (Dr/Ec) 81 mg PO DAILY 30 Days Qty: 30 RF: 0 atorvastatin 40 mg tablet 40 mg PO BEDTIME 30 Days Qty: 30 RF: 0 Discontinued aspirin 325 mg tablet 325 mg PO DAILY RF: 0 Follow up/Referrals: David Fisher MD [Primary Care Provider] - Diet/Activity/Treatments Diet: Diet as Tolerated Activity: As tolerated Visit Report/Discharge Packet Instructions: DI for Dehydration -- Adult, How to Prevent Falls, DI for Malnutrition - Older Adults, Atorvastatin Discharge Data Primary Care Provider: David Fisher Discharges patient from system. Discharge Date/Time: 01/26/20 14:36 Quality VTE Deep Vein Thrombosis/Pulmonary Embolism Present on Admission: No
--- NOTE | 2020-01-26 14:24 | CM.DANOTE ---
DCP continued: Reviewed note. Spoke with PT/OT re: recommendations. Currently patient capable of ambulating in room to/from bathroom on his own. Therapy recommends patient obtain FWW prior to d/c. Orders obtained for FWW from provider. Met with patient explained role. Patient attempting to take a nap at time of visit. Patient aware and agreeable to d/c home today with HH. Order obtained for HH. Only agency that covers [facility] is [place]. Asked [facility]/Madeline to coordinate HH arrangements. Order obtained and brochure provided to patient with copy of Medicaid application. Patient was applied for expedited [id number]. Patient's contact on demographic sheet is Cole Benjamin. RN in agreement to call contact for patient's transportation home today. Cole expected at [facility] after 1:00pm. 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 Services expected within the next 24-48hrs. MARAH Brown
--- NOTE | 2020-01-26 14:35 | PC.NURSE ---
Day shift: left unit at approx 1420 via w/ this conventional underwriter to private car driven by family member. Pt has all belongings. Paperwork signed and all questions answered. scripts sent to pharmacy electronically.
--- NOTE | 2020-01-29 11:10 | CM.SWNOTE ---
[facility] LT Application F/U Received call from Namita hall/ [facility] P# [phone] who explained she had been trying to reach Nicanor to complete the intake interview but she had not gotten a hold of him at P# [phone]; Namita wondered if this ARTILLERY OFFICER could help coordinate because if she does not hear back from Nicanor or his family, the process will go no further. Placed call to Cole Benjamin at P# [phone], explained above and he was appreciative for the call, states they rarely get to the home phone and Nicanor is extremely [place]AMP[place] and would be unable to complete a phone interview, Cole happy to contact Namita at [facility] to complete this step. Cole explains that Nicanor has been doing fairly well since his DC back home but Cole continues to be realistic that Nicanor's care needs will exceed his own abilities in the near future MARAH Hilliard
== END 2020-01-26 14:36 | disposition home health service (06) | DRG 682 ==
LOC: ED 20:02 → ICU 01-21 10:11 → AC 01-24 13:59
PROVIDERS: Internal Medicine; Admitting Provider Nurse Practitioner Family; Emergency Provider Emergency Medicine; Family Provider Internal Medicine; PCP Internal Medicine; Referring Provider Nurse Practitioner Family; Visit Provider Nurse Practitioner Family
DX: N17.9 Acute kidney failure, unspecified (principal); G93.41 Metabolic encephalopathy; E43 Unspecified severe protein-calorie malnutrition; Z68.1 Body mass index [BMI] 19.9 or less, adult; A04.1 Enterotoxigenic Escherichia coli infection; E86.0 Dehydration; F03.90 Unspecified dementia, unspecified severity, without behavioral disturbance, psychotic disturbance, mood disturbance, and anxiety; R53.1 Weakness; G98.8 Other disorders of nervous system; G31.9 Degenerative disease of nervous system, unspecified; F17.210 Nicotine dependence, cigarettes, uncomplicated; W18.30XA Fall on same level, unspecified, initial encounter; Z86.73 Personal history of transient ischemic attack (TIA), and cerebral infarction without residual deficits
CPT/HCPCS: 36415; 70450; 71045; 76770; 80048; 80053; 80305; 80320; 81001; 82550; 82728; 83605; 83735; 83880; 84145; 84146; 84484; 85025; 85610; 85730; 86140; 87507; 87635; 87797; 93005; 96360; 97110; 97116; 97162; 97165; 97530; 97535; 99284

== ENCOUNTER → 2020-02-23 14:51 | Outpatient (CLI) | payer MEDICARE, MEDICAID, SELFPAY ==
[2020-01-26 02:21] VITALS: BMI 16.0
[2020-02-23 15:37] LABS: Alanine Aminotransferase 16 IU/L (<50); Albumin 4.3 g/dL (3.5-5.0); Albumin Globulin Ratio 1.2 (1.0-2.8); Alkaline Phosphatase 74 U/L (38-126); Aspartate Aminotransferase 25 IU/L (17-59); BUN Creatinine Ratio 13.5 (6-22); Bilirubin Total 0.5 mg/dL (0.2-1.3); Blood Urea Nitrogen 15 mg/dL (9-20); Calcium 9.9 mg/dL (8.4-10.2); Carbon Dioxide 28 mmol/L (22-32); Chloride 103 mmol/L (98-107); Estimated Glomerular Filt Rate > 60.0 mL/min (>60); Globulin 3.7 g/dL (1.7-4.1); Glucose 173 mg/dL (80-110); HEMOLYSIS < 15 (0-50); Potassium 3.7 mmol/L (3.4-5.1); Sodium 139 mmol/L (137-145)
== END ==
PROVIDERS: Family Provider Internal Medicine; PCP Internal Medicine; Referring Provider Internal Medicine; Visit Provider Internal Medicine
DX: E43 Unspecified severe protein-calorie malnutrition (principal); F03.90 Unspecified dementia, unspecified severity, without behavioral disturbance, psychotic disturbance, mood disturbance, and anxiety
CPT/HCPCS: 36415; 80053; 84443